=== PATIENT | female | born 1930 | race Hispanic/Latino ===

== ENCOUNTER 2017-02-16 10:00 | Emergency (ER) | payer OTHER, MEDICARE ==
[2017-02-16 10:01] VITALS: BMI 21.0
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
[2017-02-16 10:56] VITALS: PULSE 81; TEMP 98.6
[2017-02-16 12:57] VITALS: BP 148/86; RESP 16; O2SAT 98
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
--- NOTE | 2017-02-17 16:09 | CARD ---
APPROVED REPORT EKG Measurement Heart [id number] <Conclusion> Sinus rhythm with sinus arrhythmia with occasional premature ventricular complexes Minimal voltage criteria for LVH, may be normal variant Borderline ECG
== END 2017-02-16 13:18 | disposition home or self-care (01) ==
LOC: ED 10:00
DX: S20.212A Contusion of left front wall of thorax, initial encounter (principal); S80.02XA Contusion of left knee, initial encounter; V49.49XA Driver injured in collision with other motor vehicles in traffic accident, initial encounter; Y92.410 Unspecified street and highway as the place of occurrence of the external cause

== ENCOUNTER 2017-03-01 08:38 | Emergency (ER) | payer OTHER, MEDICARE ==
[2017-03-01 08:38] VITALS: BMI 21.0
[2017-03-01 09:37] VITALS: O2SAT 98
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
[2017-03-01 11:11] VITALS: RESP 18
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
[2017-03-01 11:41] VITALS: BP 100/84; PULSE 58
--- NOTE | 2017-03-01 12:02 | CARD ---
APPROVED REPORT EKG Measurement Heart [id number] <Conclusion> Normal sinus rhythm Incomplete right bundle branch block Borderline ECG
== END 2017-03-01 12:25 | disposition home or self-care (01) ==
LOC: ED 08:38
DX: S80.02XA Contusion of left knee, initial encounter (principal); V49.9XXA Car occupant (driver) (passenger) injured in unspecified traffic accident, initial encounter; Y92.410 Unspecified street and highway as the place of occurrence of the external cause; R07.89 Other chest pain

== ENCOUNTER 2017-03-04 19:42 | Inpatient (IN) | payer MEDICARE ==
[2017-03-04 20:34] VITALS: BMI 24.6
[2017-03-04 22:14] LABS: BASO # 0.07 K/mm3 (0.0-2.0); BASO % 0.8 % (0.0-3.0); EOS # 0.2 (0.0-0.7); EOS % 2.2 % (1.5-5.0); GRAN # 4.41 (1.4-6.5); GRAN % 48.4 % (50.0-68.0); HEMOGLOBIN 12.2 gm/dL (12.0-16.0); LYMPH # 3.5 (1.2-3.4); MEAN CELL VOLUME 90.3 fL (80.0-105.0); MEAN CORPUSCULAR HEMOGLOBIN 28.9 pg (25.0-35.0); MEAN PLATELET VOLUME 8.7 fl (7.0-11.0); MONO % 10.6 % (1.0-6.0); PLATELET COUNT 292 10^3/uL (120.0-450.0); RBC 4.22 10^6/uL (3.5-6.1); RED CELL DISTRIBUTION WIDTH 14.1 % (11.5-14.5); WHITE BLOOD COUNT 9.1 10^3/ul (4.5-11.0)
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
[2017-03-04 22:47] LABS: ALB/GLOB RATIO 1.3 (1.1-1.8); ALBUMIN 3.6 g/dL (3.0-4.8); ALT/SGPT 17 U/L (7-56); AST/SGOT 37 U/L (15-39); BLOOD UREA NITROGEN 17 mg/dL (7-21); GFR AFRICAN-AMERICAN > 60; GFR NON-AFRICAN AMERICAN 52
[2017-03-04 23:04] LABS: TROPONIN I < 0.01 ng/mL
[2017-03-05 02:45] LABS: URINE BILIRUBIN NEGATIVE (NEGATIVE); URINE BLOOD NEGATIVE (NEGATIVE); URINE GLUCOSE (UA) NEGATIVE (NEGATIVE); URINE LEUKOCYTE ESTERASE TRACE Leu/uL (NEGATIVE); URINE NITRATE NEGATIVE (NEGATIVE); URINE PROTEIN NEGATIVE mg/dL (<30 mg/dL); URINE UROBILINOGEN 0.2 E.U./dL (<1 E.U./dL)
[2017-03-05 02:53] LABS: URINE APPEARANCE CLEAR (CLEAR); URINE COLOR YELLOW (YELLOW)
[2017-03-05 02:56] LABS: URINE EPITHELIAL CELLS 0 - 2 /hpf (0-5); URINE RBC 0 - 2 /hpf (0-2); URINE WBC 0 - 2 /hpf (0-6)
--- NOTE | 2017-03-05 07:23 | CT ---
PROCEDURE: CT HEAD WITHOUT CONTRAST. HISTORY: AMS COMPARISON: None available. TECHNIQUE: Axial computed tomography images were obtained through the head/brain without intravenous contrast. Radiation dose: Total exam DLP = 725 mGy-cm. This CT exam was performed using one or more of the following dose reduction techniques: Automated exposure control, adjustment of the mA and/or kV according to patient size, and/or use of iterative reconstruction technique. FINDINGS: HEMORRHAGE: No intracranial hemorrhage. BRAIN: No mass effect or edema. No atrophy or chronic microvascular ischemic changes. VENTRICLES: Unremarkable. No hydrocephalus. CALVARIUM: Unremarkable. PARANASAL SINUSES: Unremarkable as visualized. No significant inflammatory changes. MASTOID AIR CELLS: Unremarkable as visualized. No inflammatory changes. OTHER FINDINGS: None. IMPRESSION: Normal CT of the Head.
--- NOTE | 2017-03-05 07:35 | RAD ---
HISTORY: chest pain COMPARISON: 03/01/2017 TECHNIQUE: Chest PA and lateral FINDINGS: LUNGS: No active pulmonary disease. PLEURA: No significant pleural effusion identified. No pneumothorax apparent. CARDIOVASCULAR: Normal. OSSEOUS STRUCTURES: No significant abnormalities. VISUALIZED UPPER ABDOMEN: Normal. OTHER FINDINGS: None. IMPRESSION: No active disease.
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
[2017-03-06 07:02] LABS: HEMOGLOBIN 12.9 gm/dL (12.0-16.0); MEAN CELL VOLUME 89.6 fL (80.0-105.0); MEAN CORPUSCULAR HEMOGLOBIN 29.1 pg (25.0-35.0); MEAN CORPUSCULAR HGB CONC 32.4 g/dl (31.0-37.0); MEAN PLATELET VOLUME 8.7 fl (7.0-11.0); RBC 4.44 10^6/uL (3.5-6.1); RED CELL DISTRIBUTION WIDTH 14.2 % (11.5-14.5); WHITE BLOOD COUNT 8.8 10^3/ul (4.5-11.0)
[2017-03-06 07:14] LABS: ALB/GLOB RATIO 1.2 (1.1-1.8); ALBUMIN 3.6 g/dL (3.0-4.8); ALT/SGPT 26 U/L (7-56); AST/SGOT 25 U/L (15-39); BLOOD UREA NITROGEN 19 mg/dL (7-21); CALCIUM 9.1 mg/dL (8.4-10.5); GFR AFRICAN-AMERICAN > 60; GFR NON-AFRICAN AMERICAN 52
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
[2017-03-07 07:05] LABS: MEAN CELL VOLUME 90.4 fL (80.0-105.0); MEAN CORPUSCULAR HEMOGLOBIN 28.7 pg (25.0-35.0); MEAN CORPUSCULAR HGB CONC 31.7 g/dl (31.0-37.0); MEAN PLATELET VOLUME 8.8 fl (7.0-11.0); RBC 4.18 10^6/uL (3.5-6.1); RED CELL DISTRIBUTION WIDTH 14.4 % (11.5-14.5); WHITE BLOOD COUNT 8.2 10^3/ul (4.5-11.0)
[2017-03-07 07:30] LABS: ALB/GLOB RATIO 1.3 (1.1-1.8); ALBUMIN 3.4 g/dL (3.0-4.8); ALT/SGPT 23 U/L (7-56); AST/SGOT 23 U/L (15-39); BLOOD UREA NITROGEN 22 mg/dL (7-21); CALCIUM 8.8 mg/dL (8.4-10.5); GFR AFRICAN-AMERICAN > 60; GFR NON-AFRICAN AMERICAN 59
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
[2017-03-08 07:34] LABS: HEMOGLOBIN 11.8 gm/dL (12.0-16.0); MEAN CELL VOLUME 90.1 fL (80.0-105.0); MEAN CORPUSCULAR HEMOGLOBIN 28.5 pg (25.0-35.0); MEAN CORPUSCULAR HGB CONC 31.6 g/dl (31.0-37.0); MEAN PLATELET VOLUME 8.7 fl (7.0-11.0); RBC 4.14 10^6/uL (3.5-6.1); RED CELL DISTRIBUTION WIDTH 14.5 % (11.5-14.5)
[2017-03-08 07:51] LABS: ALB/GLOB RATIO 1.2 (1.1-1.8); ALBUMIN 3.4 g/dL (3.0-4.8); ALT/SGPT 22 U/L (7-56); AST/SGOT 25 U/L (15-39); BLOOD UREA NITROGEN 18 mg/dL (7-21); CALCIUM 9.1 mg/dL (8.4-10.5); GFR AFRICAN-AMERICAN > 60; GFR NON-AFRICAN AMERICAN 59
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
[2017-03-09 07:10] LABS: HEMOGLOBIN 11.5 gm/dL (12.0-16.0); MEAN CELL VOLUME 90.5 fL (80.0-105.0); MEAN CORPUSCULAR HEMOGLOBIN 28.8 pg (25.0-35.0); MEAN CORPUSCULAR HGB CONC 31.9 g/dl (31.0-37.0); MEAN PLATELET VOLUME 8.8 fl (7.0-11.0); RBC 3.99 10^6/uL (3.5-6.1); RED CELL DISTRIBUTION WIDTH 14.2 % (11.5-14.5); WHITE BLOOD COUNT 8.8 10^3/ul (4.5-11.0)
[2017-03-09 07:14] LABS: ALB/GLOB RATIO 1.2 (1.1-1.8); ALBUMIN 3.3 g/dL (3.0-4.8); ALT/SGPT 23 U/L (7-56); AST/SGOT 28 U/L (15-39); BLOOD UREA NITROGEN 20 mg/dL (7-21); GFR AFRICAN-AMERICAN > 60; GFR NON-AFRICAN AMERICAN 59
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
[2017-03-10 07:16] LABS: HEMOGLOBIN 12.1 gm/dL (12.0-16.0); MEAN CELL VOLUME 90.7 fL (80.0-105.0); MEAN CORPUSCULAR HEMOGLOBIN 28.3 pg (25.0-35.0); MEAN CORPUSCULAR HGB CONC 31.2 g/dl (31.0-37.0); MEAN PLATELET VOLUME 8.8 fl (7.0-11.0); RBC 4.28 10^6/uL (3.5-6.1); RED CELL DISTRIBUTION WIDTH 14.3 % (11.5-14.5); WHITE BLOOD COUNT 8.1 10^3/ul (4.5-11.0)
[2017-03-10 07:20] LABS: ALB/GLOB RATIO 1.4 (1.1-1.8); ALBUMIN 3.6 g/dL (3.0-4.8); ALT/SGPT 30 U/L (7-56); AST/SGOT 27 U/L (15-39); BLOOD UREA NITROGEN 23 mg/dL (7-21); CALCIUM 9.2 mg/dL (8.4-10.5); GFR AFRICAN-AMERICAN > 60; GFR NON-AFRICAN AMERICAN 59
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
[2017-03-11 07:24] LABS: HEMOGLOBIN 12.4 gm/dL (12.0-16.0); MEAN CELL VOLUME 90.7 fL (80.0-105.0); MEAN CORPUSCULAR HEMOGLOBIN 28.9 pg (25.0-35.0); MEAN CORPUSCULAR HGB CONC 31.9 g/dl (31.0-37.0); MEAN PLATELET VOLUME 8.9 fl (7.0-11.0); RBC 4.29 10^6/uL (3.5-6.1); RED CELL DISTRIBUTION WIDTH 14.2 % (11.5-14.5); WHITE BLOOD COUNT 8.4 10^3/ul (4.5-11.0)
[2017-03-11 07:29] LABS: ALB/GLOB RATIO 1.2 (1.1-1.8); ALBUMIN 3.5 g/dL (3.0-4.8); ALT/SGPT 28 U/L (7-56); AST/SGOT 28 U/L (15-39); BLOOD UREA NITROGEN 26 mg/dL (7-21); CALCIUM 9.4 mg/dL (8.4-10.5); GFR AFRICAN-AMERICAN > 60; GFR NON-AFRICAN AMERICAN 59
[2017-03-11 07:36] VITALS: BP 166/69; PULSE 68; RESP 18; TEMP 97; O2SAT 98
--- NOTE | 2017-03-11 08:23 | CARD ---
APPROVED REPORT EKG Measurement Heart [id number] <Conclusion> Marked sinus bradycardia RSR' or QR pattern in V1 suggests right ventricular conduction delay LVH by voltage No change except slower rate.
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
== END 2017-03-11 16:25 | DRG 206 ==
LOC: ED 19:42 → ERH 03-05 02:17 → 5RNO 03-05 03:59
PROVIDERS: ADMIT Student in an Organized Health Care Education/Training Program; ATTEND Student in an Organized Health Care Education/Training Program
DX: M94.0 Chondrocostal junction syndrome [Tietze] (principal); F05 Delirium due to known physiological condition; F03.90 Unspecified dementia, unspecified severity, without behavioral disturbance, psychotic disturbance, mood disturbance, and anxiety; I10 Essential (primary) hypertension; F60.0 Paranoid personality disorder; F41.9 Anxiety disorder, unspecified; K57.90 Diverticulosis of intestine, part unspecified, without perforation or abscess without bleeding; Z88.6 Allergy status to analgesic agent; Z88.0 Allergy status to penicillin; Z88.2 Allergy status to sulfonamides

== ENCOUNTER 2017-03-11 16:30 | Inpatient (IN) | payer OTHER, MEDICARE ==
[2017-03-11 16:50] VITALS: BMI 23.3
[2017-03-11] MEDS ORDERED: Vitamins A & D Oint UD Foilpak TOP PRN (19:41)
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
[2017-03-12 08:18] LABS: BASO # 0.11 K/mm3 (0.0-2.0); BASO % 1.5 % (0.0-3.0); EOS # 0.3 (0.0-0.7); EOS % 3.3 % (1.5-5.0); GRAN # 3.53 (1.4-6.5); GRAN % 46.6 % (50.0-68.0); LYMPH # 2.9 (1.2-3.4); LYMPH % 38.4 % (22.0-35.0); MEAN CELL VOLUME 91.1 fL (80.0-105.0); MEAN CORPUSCULAR HEMOGLOBIN 28.8 pg (25.0-35.0); MEAN CORPUSCULAR HGB CONC 31.6 g/dl (31.0-37.0); MEAN PLATELET VOLUME 8.7 fl (7.0-11.0); MONO # 0.8 (0.1-0.6); MONO % 10.2 % (1.0-6.0); PLATELET COUNT 253 10^3/uL (120.0-450.0); RBC 4.51 10^6/uL (3.5-6.1); RED CELL DISTRIBUTION WIDTH 14.2 % (11.5-14.5); WHITE BLOOD COUNT 7.6 10^3/ul (4.5-11.0)
[2017-03-12 08:33] LABS: ALB/GLOB RATIO 1.3 (1.1-1.8); ALBUMIN 3.7 g/dL (3.0-4.8); ALT/SGPT 28 U/L (7-56); AST/SGOT 28 U/L (15-39); BLOOD UREA NITROGEN 24 mg/dL (7-21); CALCIUM 9.5 mg/dL (8.4-10.5); GFR AFRICAN-AMERICAN > 60; GFR NON-AFRICAN AMERICAN 59
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
--- NOTE | 2017-03-19 01:09 | PN ---
DATE: 03/18/2017 SUBJECTIVE: The patient is an 87-year-old female, currently in ICU, room 316, bed 1. The patient was seen on 03/17/2017, in the morning. There have been no acute events overnight. PHYSICAL EXAMINATION: VITAL SIGNS: Temperature 97.7, pulse rate is 78, blood pressure is 132/63, respiratory rate of 18 with a 96% O2 saturation of room air. HEENT: Unremarkable. NECK: Supple with full range of motion. LUNGS: Clear bilaterally. HEART: Regular rate and rhythm. ABDOMEN: Benign. NEUROLOGICALLY: The patient is intact. There are no focal motor deficits. She does have periods of confusion. LABORATORY DATA: Lab values, they were not done. CURRENT PROBLEMS: Altered mental status. PLAN: The patient will continue the PT. Rolan James MD
--- NOTE | 2017-03-19 08:53 | PN ---
The patient is in room #316, bed #1. There have been no acute events overnight. PHYSICAL EXAMINATION VITAL SIGNS: Temperature of 97.5, blood pressure 139/85, respiration rate 20 with an O2 saturation of 97% on room air. HEENT: PERRLA. EOMI. NECK: Supple and no bruits or adenopathy. LUNGS: Clear bilaterally. HEART: Regular rate and rhythm. No murmurs, rubs or gallops. ABDOMEN: Soft. It is nontender. NEUROLOGIC: There are no focal motor deficits. CURRENT DIAGNOSIS: Altered mental status and delirium. Continue current care. Rolan James MD
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
[2017-03-19 16:00] VITALS: BP 120/69; PULSE 77; RESP 18; TEMP 97.9; O2SAT 98
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
== END 2017-03-19 20:00 | disposition home or self-care (01) | DRG 884 ==
LOC: TRCU 16:30
PROVIDERS: ADMIT Internal Medicine; ATTEND Internal Medicine
PROC: F07Z9FZ Gait Training/Functional Ambulation Treatment using Assistive, Adaptive, Supportive or Protective Equipment (ICD-10-PCS; principal; 2017-03-12)
PROC: F07M6ZZ Therapeutic Exercise Treatment of Musculoskeletal System - Whole Body (ICD-10-PCS; 2017-03-12)
PROC: F08Z4ZZ Home Management Treatment (ICD-10-PCS; 2017-03-14)
DX: F03.90 Unspecified dementia, unspecified severity, without behavioral disturbance, psychotic disturbance, mood disturbance, and anxiety (principal); I10 Essential (primary) hypertension; M94.0 Chondrocostal junction syndrome [Tietze]; F41.9 Anxiety disorder, unspecified; F60.0 Paranoid personality disorder; Z87.442 Personal history of urinary calculi; Z86.010 Personal history of colon polyps; Z87.891 Personal history of nicotine dependence; Z90.49 Acquired absence of other specified parts of digestive tract; R07.89 Other chest pain; Z87.19 Personal history of other diseases of the digestive system; F32.89 Other specified depressive episodes; Z88.6 Allergy status to analgesic agent; Z88.0 Allergy status to penicillin; Z88.2 Allergy status to sulfonamides; Z88.8 Allergy status to other drugs, medicaments and biological substances

== ENCOUNTER 2017-05-08 15:06 | Emergency (ER) | payer MEDICARE ==
[2017-05-08 15:37] VITALS: TEMP 97.7; BMI 20.6
--- NOTE | 2017-05-08 15:49 | ED PDOC ---
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 Patient stated while walking in her kitchen she fell down backwards , hitting the back of her head. Patient stated she felt like "someone pulled me backwards" prior to fall. She denies mechanical fall. Denies chest pain, sob, dizziness, recent travel, leg swelling, or abnormal gait. Patient lives alone (Constance Guillen) Past Medical History - Provider Review Nursing Documentation Reviewed: Yes - Infectious Disease Hx of Infectious Diseases: None - Tetanus Immunization Tetanus Immunization: Unknown - Cardiac Hx Cardiac Disorders: Yes - Pulmonary Hx Respiratory Disorders: No - Neurological Hx Neurological Disorder: No - HEENT Hx HEENT Disorder: Yes ([place], wears eyeglasses) Hx Cataracts: Yes - Renal Hx Renal Disorder: Yes (KIDNEY STONES) - Endocrine/Metabolic Hx Endocrine Disorders: No - Hematological/Oncological Hx Blood Disorders: No - Integumentary Hx Dermatological Disorder: No - Musculoskeletal/Rheumatological Hx Musculoskeletal Disorders: Yes Hx Falls: Yes - Gastrointestinal Hx Gastrointestinal Disorders: Yes (takes stool softeners for constapation) - Genitourinary/Gynecological Hx Genitourinary Disorders: No Hx Reproductive Disorders: No - Psychiatric Hx Psychophysiologic Disorder: Yes Hx Anxiety: Yes Hx Depression: Yes Hx Emotional Abuse: No Hx Physical Abuse: No Hx Substance Use: No Other/Comment: Early onset dementia - Surgical History Hx Appendectomy: Yes Hx Cholecystectomy: Yes Other/Comment: colon polyps - Anesthesia Hx Anesthesia: No - Suicidal Assessment Feels Threatened In Home Enviroment: No Family/Social History - Physician Review Nursing Documentation Reviewed: Yes Family/Social History: Other (non-contributory) Smoking Status: Former Smoker Hx Alcohol Use: No Hx Substance Use: No Hx Substance Use Treatment: No Allergies/Home Meds Allergies/Adverse Reactions: Allergies aspirin Allergy (Verified 03/18/17 20:02) RASH iodine Allergy (Verified 03/18/17 20:02) RASH Penicillins Allergy (Verified 03/18/17 20:02) RASH Sulfa (Sulfonamide Antibiotics) Allergy (Verified 03/18/17 20:02) RASH Review of Systems - Review of Systems Constitutional: Normal. absent: Fatigue, Weight Change, Fevers Eyes: Normal ENT: Normal Respiratory: Normal. absent: SOB, Cough Cardiovascular: Syncope. absent: Chest Pain, Palpitations, Edema, Calf Pain, BUENROSTRO Gastrointestinal: Normal. absent: Abdominal Pain, Nausea, Vomiting Genitourinary Female: Normal. absent: Dysuria, Frequency Musculoskeletal: Normal Skin: Normal. absent: Rash Neurological: Headache. absent: Dizziness, Focal Weakness, Gait Changes, Speech Changes, Facial Droop, Disequilibrium Endocrine: Normal Hemo/Lymphatic: Normal Psychiatric: Normal Physical Exam Temperature: Afebrile Blood Pressure: Normal Pulse: Regular Respiratory Rate: Normal Appearance: Positive for: Well-Appearing, Non-Toxic, Comfortable Pain Distress: None Mental Status: Positive for: Alert and Oriented X 3 - Systems Exam Head: Present: Atraumatic, Normocephalic, Other (no raccoon sign. no wisdom sign) Pupils: Present: PERRL, Other (no hyphema) Extroacular Muscles: Present: EOMI. No: Entrapment Conjunctiva: Present: Normal Ears: Present: Normal, NORMAL TM, Normal Canal, Other (no hemotympanum). No: Erythema, TM Bulging, Fluid, TM Perf Mouth: Present: Moist Mucous Membranes Pharnyx: Present: Normal. No: ERYTHEMA, EXUDATE, TONSILS ENLARGED Nose (External): Present: Atraumatic Nose (Internal): Present: Normal Inspection Neck: Present: Normal Range of Motion, MIDLINE TENDERNESS (mild), Paraspinal Tenderness, Trachea Midline. No: Meningeal Signs, JVD, Lymphadenopathy, Bruit Respiratory/Chest: Present: Clear to Auscultation, Good Air Exchange. No: Respiratory Distress, Accessory Muscle Use Cardiovascular: Present: Regular Rate and Rhythm, Normal S1, S2. No: Murmurs Abdomen: Present: Normal Bowel Sounds. No: Tenderness, Distention, Peritoneal Signs Back: Present: Normal Inspection. No: CVA Tenderness Upper Extremity: Present: Normal Inspection, Normal ROM, NORMAL PULSES, Neurovascularly Intact, Capillary Refill < 2s. No: Cyanosis, Edema Lower Extremity: Present: Normal Inspection, NORMAL PULSES, Normal ROM, Neurovascularly Intact, Capillary Refill < 2 s. No: Edema Neurological: Present: GCS=15, CN II-XII Intact, Speech Normal Skin: Present: Warm, Dry, Normal Color. No: Rashes Psychiatric: Present: Alert, Oriented x 3, Normal Insight, Normal Concentration Vital Signs Temp Pulse Resp BP Pulse Ox 05/08/17 18:20 72 16 142/60 100 05/08/17 15:26 97.7 F 71 18 147/73 98 Medical Decision Making Re-evaluation Time: 18:02 Reassessment Condition: Re-examined, Unchanged ED Course and Treatment: I was available for consultation during PA evaluation. The chart was reviewed by me, and I agree with disposition. The documented history was done by the physician denier control operator. The documented physical exam was done by the physician denier control operator. The documented procedures were done by the physician denier control operator. (Guillermo Dockery) 05/08/17 18:01 Patient is refusing labs test, and admission for near syncope. Patient is alert and oriented x 3. Patient has a normal speech, and normal gait. Patient wants to sign AMA 05/08/17 18:03 Leaving Against Medical Advice (AMA): This patient is choosing to leave against medical advice. The EP has personally explained to the pt that choosing to do so may result in permanent bodily harm or . The EP discussed at great length that without further evaluation and monitoring there may be unforeseen circumstances and/or deterioration causing permanent bodily harm or as a result of their choice. The pt verbalized these risks back to the physician in laymans terms. The pt is alert, oriented, and shows the mental capacity to make clear decisions regarding the pts health care at this time. The pt continues to wish to leave against medical advice. In light of the pts decision to leave AMA, follow-up has been recommended the pt is aware of the importance of following up as instructed. The pt has been advised that they should return to the ED immediately if they change their mind at any time, or if thier condition begins to change or worsen in any way. 05/10/17 19:15 (Constance Guillen) - RAD Interpretation Narrative RAD Interpretations (Text): 05/08/17 17:19 Accession No. : [id number] Patient Name / ID : REBEKAH REDDY / [id number] Exam Date : 05/08/2017 16:20:17 ( Approved ) Study Comment : Sex / Age : F / 87Y Creator : Nena Carias MD Dictator : A&P Mechanic : Water Resource Project Manager : Nena Carias MD Approver2 : Report Date : 05/08/2017 16:54:25 My Comment : PROCEDURE: CT HEAD WITHOUT CONTRAST. HISTORY: trauma COMPARISON: Noncontrast head CT performed 03/04/17 TECHNIQUE: Axial computed tomography images were obtained through the head/brain without intravenous contrast. Radiation dose: Total exam DLP = 725.84 mGy-cm. This CT exam was performed using one or more of the following dose reduction techniques: Automated exposure control, adjustment of the mA and/or kV according to patient size, and/or use of iterative reconstruction technique. FINDINGS: HEMORRHAGE: No intracranial hemorrhage. BRAIN: Diffuse atrophy with prominence of the ventricles and sulci noted. No mass effect or edema. Scattered periventricular and subcortical white matter hypodensities, which are nonspecific, but often seen with chronic microvascular ischemic disease. Please note that MRI with diffusion imaging is more sensitive in the detection of acute ischemic event. VENTRICLES: No hydrocephalus. CALVARIUM: Unremarkable. PARANASAL SINUSES: Unremarkable as visualized. No significant inflammatory changes. MASTOID AIR CELLS: Unremarkable as visualized. No inflammatory changes. OTHER FINDINGS: Partial opacification within both external auditory canals, likely cerumen. IMPRESSION: Generalized atrophy. Nonspecific white matter changes. 05/08/17 17:20 Accession No. : [id number] Patient Name / ID : REBEKAH REDDY / [id number] Exam Date : 05/08/2017 16:23:51 ( Approved ) Study Comment : Sex / Age : F / 87Y Creator : IVELISSE PERKINS MD Dictator : IVELISSE PERKINS MD A&P Mechanic : Water Resource Project Manager : IVELISSE PERKINS MD Approver2 : Report Date : 05/08/2017 17:10:21 My Comment : PROCEDURE: CT Cervical Spine without contrast HISTORY: Trauma COMPARISON: None available. TECHNIQUE: Axial computed tomography images were obtained of the cervical spine without the use of intravenous contrast. Coronal and sagittal reformatted images were created and reviewed. Radiation dose: Total exam DLP = 188.84 MGy-cm. This CT exam was performed using one or more of the following dose reduction techniques: Automated exposure control, adjustment of the mA and/or kV according to patient size, and/or use of iterative reconstruction technique. FINDINGS: VERTEBRAE: There is normal alignment of the cervical vertebral bodies. There is normal cervical lordosis. Vertebral height is normal. There is diffuse bone demineralization. There is no acute fracture or spondylolisthesis. The craniocervical junction is normal. 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 DISCS/SPINAL CANAL/NEURAL FORAMINA: There is multilevel degenerative disc disease with anterior osteophytes, reduced disc heights and advanced multilevel facet arthropathy, worse at C5-6 with mild right neural foraminal stenosis. No spinal canal stenosis. PARASPINAL SOFT TISSUES: No prevertebral soft tissue. OTHER FINDINGS: There is biapical pleural parenchymal scarring. No apical pneumothorax. IMPRESSION: No acute fracture or traumatic spondylolisthesis. (Constance Guillen) Radiology Orders: 05/08/17 15:44 HEAD W/O CONTRAST [CT] Stat 05/08/17 15:46 CERVICAL SPINE W/O CONTRAST [CT] Stat 05/08/17 15:47 CHEST PORTABLE [RAD] Stat Disposition/Present on Arrival - Present on Arrival Any Indicators Present on Arrival: No History of DVT/PE: No History of Uncontrolled Diabetes: No Urinary Catheter: No History of Decub. Ulcer: No History Surgical Site Infection Following: None - Disposition Have Diagnosis and Disposition been Completed?: Yes Disposition Time: 18:08 - Disposition Diagnosis: Fall, Near syncope Disposition: AGAINST MEDICAL ADVICE Condition: UNKNOWN Referrals: Erika ARANA,Barney Martinez MD [Primary Care Provider] - Follow up with primary Forms: [employer] (Monegasque)
--- NOTE | 2017-05-08 17:11 | CT ---
PROCEDURE: CT Cervical Spine without contrast HISTORY: Trauma COMPARISON: None available. TECHNIQUE: Axial computed tomography images were obtained of the cervical spine without the use of intravenous contrast. Coronal and sagittal reformatted images were created and reviewed. Radiation dose: Total exam DLP = 188.84 MGy-cm. This CT exam was performed using one or more of the following dose reduction techniques: Automated exposure control, adjustment of the mA and/or kV according to patient size, and/or use of iterative reconstruction technique. FINDINGS: VERTEBRAE: There is normal alignment of the cervical vertebral bodies. There is normal cervical lordosis. Vertebral height is normal. There is diffuse bone demineralization. There is no acute fracture or spondylolisthesis. The craniocervical junction is normal. 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 DISCS/SPINAL CANAL/NEURAL FORAMINA: There is multilevel degenerative disc disease with anterior osteophytes, reduced disc heights and advanced multilevel facet arthropathy, worse at C5-6 with mild right neural foraminal stenosis. No spinal canal stenosis. PARASPINAL SOFT TISSUES: No prevertebral soft tissue. OTHER FINDINGS: There is biapical pleural parenchymal scarring. No apical pneumothorax. IMPRESSION: No acute fracture or traumatic spondylolisthesis.
--- NOTE | 2017-05-08 17:46 | RAD ---
HISTORY: syncope COMPARISON: 03/04/2017 FINDINGS: LUNGS: The lungs are hyperinflated and there is peribronchial thickening with chronic changes in both lungs. There is a stable calcified nodule in the right lateral upper lobe. No focal consolidation. PLEURA: No significant pleural effusion identified, no pneumothorax apparent. CARDIOVASCULAR: Normal. OSSEOUS STRUCTURES: There is mild dextroscoliosis in the thoracolumbar spine. VISUALIZED UPPER ABDOMEN: Normal. OTHER FINDINGS: Surgical clips in the right upper quadrant are related to prior cholecystectomy. IMPRESSION: No active pulmonary disease. COPD.
--- NOTE | 2017-05-08 18:10 | CT ---
PROCEDURE: CT HEAD WITHOUT CONTRAST. HISTORY: trauma COMPARISON: Noncontrast head CT performed 03/04/17 TECHNIQUE: Axial computed tomography images were obtained through the head/brain without intravenous contrast. Radiation dose: Total exam DLP = 725.84 mGy-cm. This CT exam was performed using one or more of the following dose reduction techniques: Automated exposure control, adjustment of the mA and/or kV according to patient size, and/or use of iterative reconstruction technique. FINDINGS: HEMORRHAGE: No intracranial hemorrhage. BRAIN: Diffuse atrophy with prominence of the ventricles and sulci noted. No mass effect or edema. Scattered periventricular and subcortical white matter hypodensities, which are nonspecific, but often seen with chronic microvascular ischemic disease. Please note that MRI with diffusion imaging is more sensitive in the detection of acute ischemic event. VENTRICLES: No hydrocephalus. CALVARIUM: Unremarkable. PARANASAL SINUSES: Unremarkable as visualized. No significant inflammatory changes. MASTOID AIR CELLS: Unremarkable as visualized. No inflammatory changes. OTHER FINDINGS: Partial opacification within both external auditory canals, likely cerumen. IMPRESSION: Generalized atrophy. Nonspecific white matter changes.
[2017-05-08 23:28] VITALS: BP 142/60; PULSE 72; RESP 16; O2SAT 100
== END 2017-05-08 18:20 | disposition left against medical advice (07) ==
LOC: ED 15:06
DX: R55 Syncope and collapse (principal)

== ENCOUNTER 2017-06-24 10:38 | Emergency (ER) | payer MEDICARE ==
[2017-06-24 10:38] VITALS: BMI 23.3
--- NOTE | 2017-06-24 11:35 | ED PDOC ---
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 The patient states that "my doctor told me my colon could rupture someday". She denies nausea or vomiting. Denies fevers or chills. Denies chest pain or shortness of breath. She states that she feels she has to urinate although she is unable to do so and continually requests to go to bathroom. States no difficulty moving her bowels, reports last bowel movement this am was normal, nonbloody. She denies lightheadedness or dizziness. Denies back pain. Time/Duration: < week (x 3 days ) Symptom Onset: Gradual Symptom Course: Unchanged Quality: Stabbing Activities at Onset: Rest, Light Context: Home Past Medical History - Provider Review Nursing Documentation Reviewed: Yes - Infectious Disease Hx of Infectious Diseases: None - Tetanus Immunization Tetanus Immunization: Unknown - Cardiac Hx Cardiac Disorders: Yes - Pulmonary Hx Respiratory Disorders: No - Neurological Hx Neurological Disorder: No - HEENT Hx HEENT Disorder: Yes ([place], wears eyeglasses) Hx Cataracts: Yes - Renal Hx Renal Disorder: Yes (KIDNEY STONES) - Endocrine/Metabolic Hx Endocrine Disorders: No - Hematological/Oncological Hx Blood Disorders: No - Integumentary Hx Dermatological Disorder: No - Musculoskeletal/Rheumatological Hx Musculoskeletal Disorders: Yes (rheumatoid arthritis) - Gastrointestinal Hx Gastrointestinal Disorders: Yes (takes stool softeners for constapation) - Genitourinary/Gynecological Hx Genitourinary Disorders: Yes (urgenency/hesitancy) - Psychiatric Hx Psychophysiologic Disorder: Yes Hx Anxiety: Yes Hx Depression: Yes Hx Emotional Abuse: No Hx Physical Abuse: No Hx Substance Use: No Other/Comment: Early onset dementia - Surgical History Hx Appendectomy: Yes Hx Cholecystectomy: Yes Other/Comment: colon polyps - Anesthesia Hx Anesthesia: No - Suicidal Assessment Feels Threatened In Home Enviroment: No Family/Social History - Physician Review Nursing Documentation Reviewed: Yes Family/Social History: No Known Family HX Smoking Status: Former Smoker Hx Alcohol Use: No Hx Substance Use: No Hx Substance Use Treatment: No Allergies/Home Meds Allergies/Adverse Reactions: Allergies aspirin Allergy (Verified 06/24/17 10:53) RASH iodine Allergy (Verified 06/24/17 10:53) RASH Penicillins Allergy (Verified 06/24/17 10:53) RASH Sulfa (Sulfonamide Antibiotics) Allergy (Verified 06/24/17 10:53) RASH Home Medications: Home Meds Medication Instructions Recorded Confirmed Unobtainable 06/24/17 06/24/17 Review of Systems - Review of Systems Systems not reviewed;Unavailable: Dementia Constitutional: absent: Fevers Eyes: absent: Vision Changes ENT: absent: Hearing Changes Respiratory: absent: SOB Cardiovascular: absent: Chest Pain, Palpitations Gastrointestinal: Abdominal Pain. absent: Stool Changes, Diarrhea, Nausea, Vomiting, Appetite Changes, Hematochezia, Hematemesis Genitourinary Female: Dysuria, Urine Output Changes. absent: Frequency, Hematuria, Vaginal Bleeding Musculoskeletal: absent: Back Pain Skin: absent: Rash Neurological: absent: Headache, Dizziness, Focal Weakness Hemo/Lymphatic: absent: Easy Bleeding Physical Exam - Physical Exam Narrative Physical Exam (Text): 06/24/17 11:34 Head: Atraumatic. Normocephalic. Eyes: PERRL. EOMI. Conjunctivae are not pale. ENT: Mucous membranes are moist and intact. Oropharynx is clear and symmetric. Neck: Supple. Full ROM. No JVD. No lymphadenopathy. Cardiovascular: Regular rate. Regular rhythm. No murmurs, rubs, or gallops. Distal pulses are 2+ and symmetric. Pulmonary/Chest: No evidence of respiratory distress. Clear to auscultation bilaterally. No wheezing, rales or rhonchi. Abdominal: Distended. Soft. Midsuprapubic tenderness. No rebound, guarding, or rigidity. No organomegaly. Good bowel sounds. Genitourinary: no external lesions or bleeding noted Rectal: no melena or gross bleeding Back: No CVA tenderness. Extremities: No edema. No cyanosis. No clubbing. Full range of motion in all extremities. No calf tenderness. Skin: Skin is warm and dry. No petechiae. No purpura. Neurological: Alert, awake. Motor and sensory intact. No focal weakness. Steady gait. Psychiatric: Anxious. Intermittently agitated. Exhibits some paranoid behavior. Vital Signs Reviewed: Yes Vital Signs Temp Pulse Resp BP Pulse Ox 06/24/17 14:21 97.8 F 75 20 141/71 99 06/24/17 12:51 97.7 F 66 16 159/71 H 99 06/24/17 10:50 97.9 F 71 18 157/84 H 100 Temperature: Afebrile Blood Pressure: Hypertensive Pulse: Regular Respiratory Rate: Normal Appearance: Positive for: Well-Appearing, Non-Toxic Pain Distress: Mild Mental Status: Positive for: Alert and Oriented X 3 Medical Decision Making ED Course and Treatment: 06/24/17 11:35 Impression: A 87 year old female with abdominal pain and urinary output changes. Differential Diagnosis included but are not limited to: diverituclitis, colitis , urinary retention Plan: -- Abd & Pelvis -- EKG -- Chest X-ray -- Labs -- Urinary catheter -- Urinalysis -- Reassess and disposition Progress Notes: Patient on examination is noted to be afebrile, cv stable, With abdominal distension noted and complaints of difficulty urinating. She is uncomfortable on arrival and requests to go to bathroom to urinate multiple times, however patient is unable to do so saying "nothing comes out". Thurston catheter placed and 500-700 ml of clear yellow urine obtained with relief of discomfort. PROCEDURE: CT Abdomen and Pelvis without intravenous contrast Sales Engineering Manager : Dheeraj Arellano MD Report Date : 06/24/2017 13:10:44 HISTORY:patient with abdominal distension, flank pain COMPARISON:None. FINDINGS: LOWER THORAX:Unremarkable. LIVER:Unremarkable. No gross lesion or ductal dilatation. GALLBLADDER AND BILE DUCTS:Multiple clips in the gallbladder fossa PANCREAS:Unremarkable. No gross lesion or ductal dilatation. SPLEEN:Unremarkable. ADRENALS:Unremarkable. No mass. KIDNEYS AND URETERS:Unremarkable. No hydronephrosis. No solid mass. VASCULATURE:Unremarkable. No aortic aneurysm. BOWEL:Unremarkable. No obstruction. No gross mural thickening. Evaluation of the bowel is limited by lack of oral and IV contrast APPENDIX:Unremarkable. Normal appendix. PERITONEUM:Unremarkable. No free fluid. No free air. LYMPH NODES:Unremarkable. No enlarged lymph nodes. BLADDER:Unremarkable. REPRODUCTIVE:Unremarkable. BONES:No acute fracture. OTHER FINDINGS:None. IMPRESSION:No acute intra-abdominal findings No fever noted. Urinalysis unremarkable. Patient on re-exam has become more agitated stating she wishes to go home immediately. I discussed her exam and physical exam findings with her son Rex, who states she has new homemaker on Sundays. She typically takes xanax, does of xanax ordered. I discussed case with her PMD Dr. Chandler James. She insists that catheter be removed, I have advised her of risks of return of urinary retention and need for workup of etiology of retention. Patient's friend presented to emergency departmant and patient is calm and cooperative. I have informed family of disposition plan, friend will accompany her home. I have discussed with patient ct results and risk of return of urinary retention without catheter. She states she does not want catheter in and understands these risks. I have discussed with Dr. Chandler James, who is aware and will follow-up with patient. - Lab Interpretations Lab Results: 06/24/17 12:15 06/24/17 12:15 Lab Results 06/24/17 13:31: Urine Color Yellow, Urine Appearance Clear, Urine pH 7.0, Ur Specific [place] <= 1.005, Urine Protein Negative, Urine Glucose (UA) Negative, Urine Ketones Negative, Urine Blood Negative, Urine Nitrate Negative, Urine Bilirubin Negative, Urine Urobilinogen 0.2, Ur Leukocyte Esterase Negative 06/24/17 12:15: Sodium 142, Potassium 5.1 H, Chloride 108 H, Carbon Dioxide 25, Anion Gap 14, BUN 17, Creatinine 1.0, Est GFR ( Amer) > 60, Est GFR (Non- Af Amer) 52, Random Glucose 95, Calcium 9.2, Total Bilirubin 0.5, AST 28, ALT 22 , Alkaline Phosphatase 65, Lactate Dehydrogenase 548, Total Creatine Kinase 48, Troponin I < 0.01, Total Protein 6.6, Albumin 3.9, Globulin 2.7, Albumin/ Globulin Ratio 1.4, Amylase 112, Lipase 131 06/24/17 12:15: PT 11.2, INR 1.02, APTT 36.5 06/24/17 12:15: WBC 7.8, RBC 4.05, Hgb 11.4 L, Hct 35.8 L, MCV 88.4, MCH 28.1, MCHC 31.8, RDW 14.3, Plt Count 323, MPV 9.2, Gran % 60.5, Lymph % (Auto) 26.9, [place] % (Auto) 10.0 H, Eos % (Auto) 1.3 L, Baso % (Auto) 1.3, Gran # 4.74, Lymph # 2.1, [place] # 0.8 H, Eos # 0.1, Baso # 0.10 - RAD Interpretation Radiology Orders: 06/24/17 11:25 CHEST PORTABLE [RAD] Stat 06/24/17 11:26 ABD & PELVIS W/O PO OR IV CONT [CT] Stat - EKG Interpretation EKG Interpretation (Text): EKG at 10:58 normal sinus rhythm, no acute st elevations Interpreted by ED Physician: Yes Type: 12 lead EKG - Medication Orders Current Medication Orders: Discontinued Medications Alprazolam (Xanax) 0.5 mg PO STAT STA Stop: 06/24/17 14:28 Last Admin: 06/24/17 14:35 Dose: 0.5 mg - Scribe Statement The provider has reviewed the documentation as recorded by the Dariibab Kessler Provider Scribe Attestation: All medical record entries made by the Dariibe were at my direction and personally dictated by me. I have reviewed the chart and agree that the record accurately reflects my personal performance of the history, physical exam, medical decision making, and the department course for this patient. I have also personally directed, reviewed, and agree with the discharge instructions and disposition. Disposition/Present on Arrival - Present on Arrival Any Indicators Present on Arrival: No History of DVT/PE: No History of Uncontrolled Diabetes: No Urinary Catheter: No History of Decub. Ulcer: No History Surgical Site Infection Following: None - Disposition Have Diagnosis and Disposition been Completed?: Yes Diagnosis: Abdominal pain, Urinary retention Disposition: AGAINST MEDICAL ADVICE Disposition Time: 14:40 Patient Plan: Discharge Patient Problems: Current Active Problems Problem Status Onset Abdominal pain Acute Agitation Acute Urinary retention Acute Condition: GOOD Discharge Instructions (ExitCare): Acute Urinary Retention in Women (ED) Additional Instructions: Follow-up with Dr. James in 1-2 days. For any difficulty urinating, any chest pain, or shortness of breath, any vomiting, any fevers, any dark or bloody stools, get rechecked. Follow-up with urologist as discussed. Referrals: Erika ARANA,Barney Martinez MD [Primary Care Provider] - Follow up with primary Guicho Aldana MD [Staff Provider] - Follow up with primary Forms: [employer] (Czech)
[2017-06-24 12:33] LABS: ALB/GLOB RATIO 1.4 (1.1-1.8); ALKALINE PHOSPHATASE 65 U/L (38-126); ALT/SGPT 22 U/L (7-56); AMYLASE 112 U/L (35-125); AST/SGOT 28 U/L (14-36); BILIRUBIN,TOTAL 0.5 mg/dL (0.2-1.3); BLOOD UREA NITROGEN 17 mg/dL (7-21); CALCIUM 9.2 mg/dL (8.4-10.5); CARBON DIOXIDE 25 mmol/L (21-33); CHLORIDE 108 mmol/L (98-107); GFR AFRICAN-AMERICAN > 60; GLUCOSE,RANDOM 95 mg/dL (70-110); LIPASE 131 U/L (23-300); SODIUM 142 mmol/L (132-148); TOTAL PROTEIN 6.6 g/dL (5.8-8.3)
[2017-06-24 12:34] LABS: POTASSIUM 5.1 mmol/L (3.6-5.0)
[2017-06-24 12:43] LABS: BASO # 0.1 K/mm3 (0.0-2.0); BASO % 1.3 % (0.0-3.0); EOS # 0.1 (0.0-0.7); EOS % 1.3 % (1.5-5.0); GRAN # 4.74 (1.4-6.5); GRAN % 60.5 % (50.0-68.0); HEMATOCRIT 35.8 % (36.0-48.0); LYMPH # 2.1 (1.2-3.4); LYMPH % 26.9 % (22.0-35.0); MEAN CELL VOLUME 88.4 fl (80.0-105.0); MEAN CORPUSCULAR HEMOGLOBIN 28.1 pg (25.0-35.0); MEAN CORPUSCULAR HGB CONC 31.8 g/dl (31.0-37.0); MEAN PLATELET VOLUME 9.2 fl (7.0-11.0); MONO # 0.8 (0.1-0.6); RED CELL DISTRIBUTION WIDTH 14.3 % (11.5-14.5); WHITE BLOOD COUNT 7.8 10^3/ul (4.5-11.0)
[2017-06-24 12:47] LABS: TROPONIN I < 0.01 ng/mL
[2017-06-24 13:07] LABS: INR 1.02 (0.93-1.08); PARTIAL THROMBOPLASTIN TIME 36.5 Seconds (25.1-36.5)
--- NOTE | 2017-06-24 13:12 | CT ---
PROCEDURE: CT Abdomen and Pelvis without intravenous contrast HISTORY: patient with abdominal distension, flank pain COMPARISON: None. TECHNIQUE: Without contrast.. Contrast Dose: Radiation dose: Total exam DLP = 421 mGy-cm. This CT exam was performed using one or more of the following dose reduction techniques: Automated exposure control, adjustment of the mA and/or kV according to patient size, and/or use of iterative reconstruction technique. FINDINGS: LOWER THORAX: Unremarkable. LIVER: Unremarkable. No gross lesion or ductal dilatation. GALLBLADDER AND BILE DUCTS: Multiple clips in the gallbladder fossa PANCREAS: Unremarkable. No gross lesion or ductal dilatation. SPLEEN: Unremarkable. ADRENALS: Unremarkable. No mass. KIDNEYS AND URETERS: Unremarkable. No hydronephrosis. No solid mass. VASCULATURE: Unremarkable. No aortic aneurysm. BOWEL: Unremarkable. No obstruction. No gross mural thickening. Evaluation of the bowel is limited by lack of oral and IV contrast APPENDIX: Unremarkable. Normal appendix. PERITONEUM: Unremarkable. No free fluid. No free air. LYMPH NODES: Unremarkable. No enlarged lymph nodes. BLADDER: Unremarkable. REPRODUCTIVE: Unremarkable. BONES: No acute fracture. OTHER FINDINGS: None. IMPRESSION: No acute intra-abdominal findings
[2017-06-24 13:37] LABS: URINE BILIRUBIN NEGATIVE (NEGATIVE); URINE BLOOD NEGATIVE (NEGATIVE); URINE GLUCOSE (UA) NEGATIVE (NEGATIVE); URINE KETONE NEGATIVE (NEGATIVE); URINE LEUKOCYTE ESTERASE NEGATIVE Leu/uL (NEGATIVE); URINE PROTEIN NEGATIVE mg/dL (<30 mg/dL); URINE UROBILINOGEN 0.2 E.U./dL (<1 E.U./dL)
[2017-06-24 13:47] LABS: URINE APPEARANCE CLEAR (CLEAR); URINE COLOR YELLOW (YELLOW)
--- NOTE | 2017-06-24 13:55 | RAD ---
HISTORY: upper abdominal pain COMPARISON: 05/08/2017 FINDINGS: LUNGS: No active pulmonary disease. PLEURA: No significant pleural effusion identified, no pneumothorax apparent. CARDIOVASCULAR: Normal. OSSEOUS STRUCTURES: No significant abnormalities. VISUALIZED UPPER ABDOMEN: Normal. OTHER FINDINGS: None. IMPRESSION: No active disease.
[2017-06-24 14:22] VITALS: RESP 20
[2017-06-24 15:27] VITALS: BP 125/73; PULSE 74; TEMP 98; O2SAT 100
--- NOTE | 2017-06-24 20:54 | CARD ---
APPROVED REPORT EKG Measurement Heart [id number] <Conclusion> Normal sinus rhythm with sinus arrhythmia Normal ECG
== END 2017-06-24 15:31 | disposition home or self-care (01) ==
LOC: ED 10:38
DX: R10.9 Unspecified abdominal pain (principal); R33.9 Retention of urine, unspecified; M06.9 Rheumatoid arthritis, unspecified

== ENCOUNTER 2017-08-08 09:45 | Inpatient (IN) | payer MEDICARE ==
--- NOTE | 2017-08-08 10:28 | ED PDOC ---
Arrival/HPI - General Historian: Patient EM Caveat: Altered Mental Status, Dementia - History of Present Illness Time/Duration: Prior to Arrival Symptom Onset: Sudden Symptom Course: Unchanged Activities at Onset: Rest Context: Home - General Chief Complaint: Altered Mental Status Time Seen by Provider: 08/08/17 09:49 - History of Present Illness Narrative History of Present Illness (Text): 08/08/17 10:23 This is an 87 yo female with past medical hx of dementia and paranoia, HTN, diverticulosis, presenting after fall at home. Patient was brought in by ambulance. Home health aide usually comes by to help her every day. Aide left around 2 PM yesterday. When she came by again this morning, patient was on floor in dining room covered in urine. She also had abrasions on her face and knees and swelling around her neck. Patient cannot provide any hx and does not recall the event. She presently complains of some chest pain and some right arm pain. PMH: dementia, paranoia, diverticulosis PSH: cholecystectomy, appendectomy Allergies: ASA, iodine, PCN, sulfa FH: non contributory Social hx: no smoking, drinking, drug use. lives alone. uses cane. 08/08/17 10:34 (Dale Kennedy) Past Medical History - Provider Review Nursing Documentation Reviewed: Yes - Travel History Have you recently traveled outside [place] w/in the past 3 mons?: No - Infectious Disease Hx of Infectious Diseases: None - Tetanus Immunization Tetanus Immunization: Unknown - Reproductive Menopause: Yes - Cardiac Hx Cardiac Disorders: Yes - Pulmonary Hx Respiratory Disorders: No - Neurological Hx Neurological Disorder: Yes Hx Dementia: Yes - HEENT Hx HEENT Disorder: Yes ([place], wears eyeglasses) Hx Cataracts: Yes - Renal Hx Renal Disorder: Yes (KIDNEY STONES) - Endocrine/Metabolic Hx Endocrine Disorders: No - Hematological/Oncological Hx Blood Disorders: No - Integumentary Hx Dermatological Disorder: No - Musculoskeletal/Rheumatological Hx Musculoskeletal Disorders: Yes (rheumatoid arthritis) - Gastrointestinal Hx Gastrointestinal Disorders: Yes (takes stool softeners for constapation) - Genitourinary/Gynecological Hx Genitourinary Disorders: Yes (urgenency/hesitancy) - Psychiatric Hx Psychophysiologic Disorder: Yes Hx Anxiety: Yes Hx Depression: Yes Hx Emotional Abuse: No Hx Physical Abuse: No Hx Substance Use: No Other/Comment: Early onset dementia - Surgical History Hx Appendectomy: Yes Hx Cholecystectomy: Yes Other/Comment: colon polyps - Anesthesia Hx Anesthesia: Yes Hx Anesthesia Reactions: No - Suicidal Assessment Feels Threatened In Home Enviroment: No Family/Social History - Physician Review Nursing Documentation Reviewed: Yes Family/Social History: No Known Family HX Smoking Status: Former Smoker Hx Alcohol Use: No Hx Substance Use: No Hx Substance Use Treatment: No Allergies/Home Meds Allergies/Adverse Reactions: Allergies aspirin Allergy (Verified 08/11/17 17:35) RASH iodine Allergy (Verified 08/11/17 17:35) RASH Penicillins Allergy (Verified 08/11/17 17:35) RASH Sulfa (Sulfonamide Antibiotics) Allergy (Verified 08/11/17 17:35) RASH Home Medications: Home Meds Medication Instructions Recorded Confirmed risperiDONE [RisperDAL Tab] 0.5 mg PO BID 08/08/17 08/11/17 Review of Systems - Review of Systems Systems not reviewed;Unavailable: Altered Mental Status Physical Exam Vital Signs Reviewed: Yes Appearance: Positive for: Unkept Mental Status: Positive for: Confused. No: Alert and Oriented X 3 Finger Stick Blood Glucose: 103 - Systems Exam Head: Present: Swelling, Abrasion. No: Atraumatic Pupils: Present: PERRL Extroacular Muscles: Present: EOMI Neck: Present: Other (some swelling around neck ) Respiratory/Chest: Present: Decreased Breath Sounds, Other (mild chest wall tenderness) Cardiovascular: Present: Normal S1, S2 Abdomen: No: Tenderness, Distention, Peritoneal Signs Upper Extremity: Present: Tenderness (tenderness right upper extremity ). No: Normal Inspection, Cyanosis, Edema, Normal ROM Lower Extremity: Present: Tenderness, Erythema, Other (tenderness, abrasion b/l knees ). No: Normal Inspection Neurological: Present: CN II-XII Intact Skin: Present: Warm, Dry Psychiatric: Present: Alert. No: Oriented x 3, Normal Insight, Normal Concentration Vital Signs Temp Pulse Resp BP Pulse Ox 08/08/17 11:10 71 18 121/74 96 08/08/17 09:58 97.8 F 77 18 119/71 95 - Lab Interpretations Microbiology Results: Microbiology Results 08/08/17 11:00 Blood Blood Culture - Preliminary NO GROWTH AFTER 4 DAYS 08/08/17 10:30 Blood Blood Culture - Preliminary NO GROWTH AFTER 4 DAYS Lab Results: 08/08/17 10:30 08/08/17 10:30 Lab Results 08/08/17 10:30: pO2 65 H, VBG pH 7.32, VBG pCO2 41.0, VBG HCO3 21.1, VBG Total CO2 22.4, VBG O2 Sat (Calc) 94.1 H, VBG Base Excess -4.8 L, VBG Potassium 4.6, Sodium 138.0, Chloride 106.0, Glucose 122 H, Lactate 2.4 H, FiO2 21.0, Venous Blood Potassium 4.6 08/08/17 10:30: PT 13.7 H, INR 1.24 H, APTT 30.4 08/08/17 10:30: Sodium 139, Chloride 108 H, Potassium 4.0, Carbon Dioxide 21, Anion Gap 14, BUN 22 H, Creatinine 1.0, Est GFR ( Amer) > 60, Est GFR ( Non-Af Amer) 52, Random Glucose 122 H, Calcium 9.4, Magnesium 1.8, Total Bilirubin 0.8, AST 94 H D, ALT 29, Alkaline Phosphatase 61, Lactate Dehydrogenase 1075 H, Total Creatine Kinase 3824 H, CK-MB (CK-2) 35.7 H, CK-MB ( CK-2) % 0.9 L, Troponin I 5.65 H* D, Total Protein 6.9, Albumin 3.8, Globulin 3.1, Albumin/Globulin Ratio 1.2 08/08/17 10:30: WBC 18.6 H D, RBC 4.49, Hgb 12.5, Hct 38.8, MCV 86.4, MCH 27.8, MCHC 32.2, RDW 14.9 H, Plt Count 280, MPV 9.2, Gran % 82.9 H, Lymph % (Auto) 4.7 L, [place] % (Auto) 12.3 H, Eos % (Auto) 0.0 L, Baso % (Auto) 0.1, Gran # 15.38 H, Lymph # 0.9 L, [place] # 2.3 H, Eos # 0.0, Baso # 0.02, Neutrophils % ( Manual) 88 H, Lymphocytes % (Manual) 5 L, Monocytes % (Manual) 7 H, Toxic Granulation Slight, Platelet Evaluation Normal, Anisocytosis (manual) Slight - RAD Interpretation Radiology Orders: 08/08/17 10:14 CHEST ONE VIEW [RAD] Stat 08/08/17 10:16 ABD & PELVIS W/O PO OR IV CONT [CT] Stat KNEES BILATERAL [RAD] Stat PELVIS ONE VIEW [RAD] Stat 08/08/17 10:19 ELBOW RIGHT 3 VIEWS ROUTINE [RAD] Stat 08/08/17 10:22 CERVICAL SPINE W/O CONTRAST [CT] Stat HEAD W/O CONTRAST [CT] Stat - Medication Orders Current Medication Orders: Discontinued Medications Alprazolam (Xanax) 0.25 mg PO BID PRN; Protocol PRN Reason: Anxiety Stop: 08/16/17 18:01 Last Admin: 08/11/17 09:51 Dose: 0.25 mg Behavioural Document 08/11/17 09:51 SD (Rec: 08/11/17 09:51 SD [facility] [id number]) Maintenance Maintenance Dose No Nonmedicinal Nonmedicinal Interventions Therapeutic Communication Behavior Behavior for Medication: Anxiety Re-Assess: Reassess Psych Meds Document 08/11/17 10:51 SD (Rec: 08/11/17 12:40 SD [id number]) Reassess Psych Med Effective Aspirin (Aspirin) 325 mg PO STAT STA Stop: 08/08/17 13:22 Last Admin: 08/08/17 14:22 Dose: Aspirin (Ecotrin) 81 mg PO DAILY [facility] Last Admin: 08/10/17 10:22 Dose: Not Given Non-Admin Reason: Allergy Atorvastatin Calcium (Lipitor) 40 mg PO DAILY [facility] Last Admin: 08/11/17 09:50 Dose: 40 mg Bisacodyl (Dulcolax) 10 mg RC ONCE ONE Stop: 08/09/17 10:44 Last Admin: 08/09/17 11:00 Dose: 10 mg Diltiazem HCl (Cardizem) 20 mg IVP ONCE ONE Stop: 08/10/17 00:08 Last Admin: 08/10/17 00:35 Dose: 20 mg IVP Administration Document 08/10/17 00:35 LGA (Rec: 08/10/17 00:36 [email or web address]) Charges for Administration # of IVP Administrations 1 MAR Pulse and Blood Pressure Document 08/10/17 00:35 LGA (Rec: 08/10/17 00:36 A [id number]) Pulse Pulse Rate (60-90) 129 Blood Pressure Blood Pressure (100/60-150/90) 127/78 Enoxaparin Sodium (Lovenox) 72 mg SC STAT ONE PRN Reason: Protocol Stop: 08/08/17 13:22 Last Admin: 08/08/17 14:20 Dose: 72 mg Subcutaneous Administrations Document 08/08/17 14:20 SE (Rec: 08/08/17 14:20 SE [id number]) Injection Site MAR Injection Site Left Abdomen Charges for Administration # of Subcutaneous Administrations 1 Sodium Chloride (Sodium Chloride 0.9%) 1,000 mls @ 100 mls/hr IV .Q10H [facility] Last Admin: 08/09/17 05:39 Dose: 100 mls/hr eMAR Start Stop Document 08/09/17 05:39 STM (Rec: 08/09/17 05:40 [facility] [id number]) Intravenous Solution Start Date 08/09/17 Start Time 05:39 Ciprofloxacin (Cipro 400mg/200ml Dsw) 400 mg in 200 mls @ 133.3 mls/hr IVPB STAT STA PRN Reason: Protocol Stop: 08/08/17 12:39 Last Admin: 08/08/17 11:31 Dose: 133.3 mls/hr eMAR Start Stop Document 08/08/17 11:31 SE (Rec: 08/08/17 11:31 SE [id number]) Intravenous Solution Start Date 08/08/17 Start Time 11:31 Metoprolol Tartrate (Lopressor) 25 mg PO BID [facility] Last Admin: 08/11/17 09:51 Dose: 25 mg MAR Pulse and Blood Pressure Document 08/11/17 09:51 SD (Rec: 08/11/17 09:51 SD [id number]) Pulse Pulse Rate (60-90) 76 Blood Pressure Blood Pressure (100/60-150/90) 138/80 Pneumococcal Polyvalent Vaccine (Pneumovax 23 Vaccine) 0.5 ml IM .ONCE ONE Stop: 08/08/17 17:20 Last Admin: 08/08/17 19:17 Dose: MAR Immunization Data Document 08/08/17 19:17 FM (Rec: 08/08/17 19:18 [id number]) Immunization Data Vaccine Information Sheet Given No: confused Immunization Registry Document 08/08/17 19:17 FM (Rec: 08/08/17 19:18 FM [id number]) Immunization Registry Consent Date 08/08/17 Risperidone (Risperdal Tab) 0.5 mg PO BID [place] PRN Reason: Protocol Last Admin: 08/11/17 09:50 Dose: 0.5 mg Behavioural Document 08/11/17 09:50 SD (Rec: 08/11/17 09:51 SD [id number]) Maintenance Maintenance Dose Yes Nonmedicinal Nonmedicinal Interventions Therapeutic Communication Re-Assess: Reassess Psych Meds Document 08/11/17 10:50 SD (Rec: 08/11/17 12:40 SD [id number]) Reassess Psych Med Effective Sodium Phosphate (Fleet Enema) 135 ml RC ONCE ONE Stop: 08/09/17 13:01 Last Admin: 08/09/17 14:11 Dose: Disposition/Present on Arrival - Present on Arrival Any Indicators Present on Arrival: No History of DVT/PE: No History of Uncontrolled Diabetes: No Urinary Catheter: No History of Decub. Ulcer: No History Surgical Site Infection Following: None - Disposition Have Diagnosis and Disposition been Completed?: Yes Disposition Time: 16:00 Patient Plan: Admission - Disposition Diagnosis: NSTEMI (non-ST elevated myocardial infarction) Disposition: HOSPITALIZED Condition: STABLE
[2017-08-08] MEDS: Sodium Chloride 0.9% 1,000 ML IV SCH ×2 (10:32→20:24)
[2017-08-08 10:50] LABS: BASO # 0.02 K/mm3 (0.0-2.0); BASO % 0.1 % (0.0-3.0); GRAN # 15.38 (1.4-6.5); GRAN % 82.9 % (50.0-68.0); HEMATOCRIT 38.8 % (36.0-48.0); LYMPH # 0.9 (1.2-3.4); LYMPH % 4.7 % (22.0-35.0); MEAN CELL VOLUME 86.4 fl (80.0-105.0); MEAN CORPUSCULAR HEMOGLOBIN 27.8 pg (25.0-35.0); MEAN CORPUSCULAR HGB CONC 32.2 g/dl (31.0-37.0); MEAN PLATELET VOLUME 9.2 fl (7.0-11.0); MONO # 2.3 (0.1-0.6); MONO % 12.3 % (1.0-6.0); PLATELET COUNT 280 10^3/uL (120.0-450.0); RED CELL DISTRIBUTION WIDTH 14.9 % (11.5-14.5); WHITE BLOOD COUNT 18.6 10^3/ul (4.5-11.0)
[2017-08-08 11:03] LABS: VENOUS BLOOD GAS BASE EXCESS -4.8 mmol/L (0.0-2.0); VENOUS BLOOD PH 7.32 (7.32-7.43)
[2017-08-08 11:04] LABS: INR 1.24 (0.93-1.08); PARTIAL THROMBOPLASTIN TIME 30.4 Seconds (25.1-36.5)
[2017-08-08] MEDS ORDERED: Ciprofloxacin 400mg/200ml D5W 400 MG/200 ML BAG IVPB STA (11:09)
[2017-08-08 11:22] LABS: ANISOCYTOSIS SLIGHT; NEUTROPHIL 88 % (50.0-70.0); PLATELET ESTIMATE NORMAL (NORMAL); TOXIC GRANULATION SLIGHT
[2017-08-08 11:36] LABS: BLOOD UREA NITROGEN 22 mg/dL (7-21); CHLORIDE 108 mmol/L (98-107); GFR AFRICAN-AMERICAN > 60; GLUCOSE,RANDOM 122 mg/dL (70-110); SODIUM 139 mmol/L (132-148)
[2017-08-08 11:37] LABS: ALB/GLOB RATIO 1.2 (1.1-1.8); ALT/SGPT 29 U/L (7-56); AST/SGOT 94 U/L (14-36); BILIRUBIN,TOTAL 0.8 mg/dL (0.2-1.3); CALCIUM 9.4 mg/dL (8.4-10.5); CARBON DIOXIDE 21 mmol/L (21-33); MAGNESIUM 1.8 mg/dL (1.7-2.2); TOTAL PROTEIN 6.9 g/dL (5.8-8.3)
[2017-08-08 11:38] LABS: ALKALINE PHOSPHATASE 61 U/L (38-126)
[2017-08-08 11:40] LABS: TROPONIN I 5.65 ng/mL
--- NOTE | 2017-08-08 12:41 | CT ---
PROCEDURE: CT HEAD WITHOUT CONTRAST. HISTORY: fall at home COMPARISON: 05/08/2017 TECHNIQUE: Axial computed tomography images were obtained through the head/brain without intravenous contrast. Radiation dose: Total exam DLP = 736 mGy-cm. This CT exam was performed using one or more of the following dose reduction techniques: Automated exposure control, adjustment of the mA and/or kV according to patient size, and/or use of iterative reconstruction technique. FINDINGS: HEMORRHAGE: No intracranial hemorrhage. BRAIN: No mass effect or edema. No atrophy or chronic microvascular ischemic changes. VENTRICLES: Unremarkable. No hydrocephalus. CALVARIUM: Unremarkable. PARANASAL SINUSES: Unremarkable as visualized. No significant inflammatory changes. MASTOID AIR CELLS: Unremarkable as visualized. No inflammatory changes. OTHER FINDINGS: None. IMPRESSION: No acute findings
--- NOTE | 2017-08-08 12:45 | CT ---
PROCEDURE: CT Cervical Spine without contrast HISTORY: Patient fell COMPARISON: None available. TECHNIQUE: Axial computed tomography images were obtained of the cervical spine without the use of intravenous contrast. Coronal and sagittal reformatted images were created and reviewed. Radiation dose: Total exam DLP = 285 mGy-cm. This CT exam was performed using one or more of the following dose reduction techniques: Automated exposure control, adjustment of the mA and/or kV according to patient size, and/or use of iterative reconstruction technique. FINDINGS: VERTEBRAE: No fracture. Normal alignment. No destructive bony lesion. DISCS/SPINAL CANAL/NEURAL FORAMINA: No significant central canal or neural foraminal stenosis. Degenerative changes with bony fusion can be seen at C4-5. There is disc degeneration with a vacuum disc at C5-6 and C6-7. Degenerative changes are seen at the C1-2 articulations PARASPINAL SOFT TISSUES: Unremarkable. OTHER FINDINGS: None. IMPRESSION: No evidence of fracture
--- NOTE | 2017-08-08 12:52 | CT ---
PROCEDURE: CT Abdomen and Pelvis without intravenous contrast HISTORY: abd pain COMPARISON: 06/24/2017 TECHNIQUE: Without contrast.. Contrast Dose: Radiation dose: Total exam DLP = 367 mGy-cm. This CT exam was performed using one or more of the following dose reduction techniques: Automated exposure control, adjustment of the mA and/or kV according to patient size, and/or use of iterative reconstruction technique. FINDINGS: LOWER THORAX: Unremarkable. LIVER: Unremarkable. No gross lesion or ductal dilatation. GALLBLADDER AND BILE DUCTS: Gallbladder removed PANCREAS: Unremarkable. No gross lesion or ductal dilatation. SPLEEN: Unremarkable. ADRENALS: Unremarkable. No mass. KIDNEYS AND URETERS: There is atrophy of the right kidney VASCULATURE: Unremarkable. No aortic aneurysm. BOWEL: Unremarkable. No obstruction. No gross mural thickening. There is moderate constipation and diverticulosis of the sigmoid colon. APPENDIX: Unremarkable. Normal appendix. PERITONEUM: Unremarkable. No free fluid. No free air. LYMPH NODES: Unremarkable. No enlarged lymph nodes. BLADDER: Unremarkable. REPRODUCTIVE: Unremarkable. BONES: No acute fracture. OTHER FINDINGS: None. IMPRESSION: No acute findings
[2017-08-08] MEDS ORDERED: Enoxaparin 80 mg Syringe SC ONE (13:21)
--- NOTE | 2017-08-08 13:32 | CARD ---
APPROVED REPORT EKG Measurement Heart [id number] <Conclusion> Sinus rhythm with premature supraventricular complexes Cannot rule out Anterior infarct, age undetermined Abnormal ECG
--- NOTE | 2017-08-08 13:37 | RAD ---
PROCEDURE: Radiographs of the right elbow. HISTORY: fall COMPARISON: No prior. FINDINGS: BONES: Normal. No fracture. JOINTS: Normal. No osteoarthritis. SOFT TISSUES: Normal. JOINT EFFUSION: None. OTHER FINDINGS: None. IMPRESSION: Unremarkable radiographs of the right elbow.
--- NOTE | 2017-08-08 13:38 | RAD ---
PROCEDURE: CHEST RADIOGRAPH, 1 VIEW HISTORY: fall/chest pain COMPARISON: 06/24/2017 FINDINGS: LUNGS: Clear. PLEURA: No pneumothorax or pleural fluid seen. CARDIOVASCULAR: Normal. OSSEOUS STRUCTURES: No significant abnormalities. VISUALIZED UPPER ABDOMEN: Normal. OTHER FINDINGS: None. IMPRESSION: No active disease.
--- NOTE | 2017-08-08 13:39 | RAD ---
PROCEDURE: Radiographs of the pelvis. HISTORY: fall COMPARISON: None. FINDINGS: BONES: Pelvic Bones: Unremarkable. Hips: Grossly unremarkable. JOINTS: Sacroiliac Joints: Unremarkable. Pubic Symphysis: Unremarkable. OTHER FINDINGS: None. IMPRESSION: Unremarkable radiographs of the pelvis.
--- NOTE | 2017-08-08 13:40 | RAD ---
PROCEDURE: Bilateral Knee Radiographs. HISTORY: fall COMPARISON: None. FINDINGS: BONES: Right Knee: Normal. No fracture. Left Knee: Normal. No fracture. JOINTS: Right Knee: Normal. No osteoarthritis. Left knee: Normal. No osteoarthritis. SOFT TISSUES: Right Knee: Normal. Left Knee: Normal. JOINT EFFUSION: Right Knee: None. Left Knee: None. OTHER FINDINGS: None. IMPRESSION: Normal radiographs of the knees.
--- NOTE | 2017-08-08 14:03 | CP.PCM.CON ---
History of Present Illness - History of Present Illness History of Present Illness: Critical Care Progress Note HPI: patient is 87yo female with PMhx of dementia, HTN, presenting s.p fall at home. Pt was found down by the home health aide, on the floor. Noted to have abrasions to her face, knees. Pt noted to have rhabdo, and elevated troponin on labs. EKG without acute ischemic changes. Denies fever, chills, cough, chest pain, sob palpitations. No other constitutional symptoms. PMH: dementia, paranoia, diverticulosis PSH: cholecystectomy, appendectomy Allergies: ASA, iodine, PCN, sulfa FH: non contributory Social hx: no smoking, drinking, drug use. lives alone. Review of Systems - Review of Systems Review of Systems: As per HPI Past Patient History - Infectious Disease Hx of Infectious Diseases: None - Tetanus Immunizations Tetanus Immunization: Unknown - Past Social History Smoking Status: Former Smoker - CARDIAC Hx Cardiac Disorders: Yes - PULMONARY Hx Respiratory Disorders: No - NEUROLOGICAL Hx Neurological Disorder: Yes Hx Dementia: Yes - HEENT Hx HEENT Problems: Yes ([place], wears eyeglasses) Hx Cataracts: Yes - RENAL Hx Chronic Kidney Disease: Yes (KIDNEY STONES) - ENDOCRINE/METABOLIC Hx Endocrine Disorders: No - HEMATOLOGICAL/ONCOLOGICAL Hx Blood Disorders: No - INTEGUMENTARY Hx Dermatological Problems: No - MUSCULOSKELETAL/RHEUMATOLOGICAL Hx Musculoskeletal Disorders: Yes (rheumatoid arthritis) - GASTROINTESTINAL Hx Gastrointestinal Disorders: Yes (takes stool softeners for constapation) - GENITOURINARY/GYNECOLOGICAL Hx Genitourinary Disorders: Yes (urgenency/hesitancy) - PSYCHIATRIC Hx Psychophysiologic Disorder: Yes Hx Anxiety: Yes Hx Depression: Yes Hx Emotional Abuse: No Hx Physical Abuse: No Hx Substance Use: No Other/Comment: Early onset dementia - SURGICAL HISTORY Hx Appendectomy: Yes Hx Cholecystectomy: Yes Other/Comment: colon polyps - ANESTHESIA Hx Anesthesia: Yes Hx Anesthesia Reactions: No Meds Allergies/Adverse Reactions: Allergies Allergy/AdvReac Type Severity Reaction Status Date / Time aspirin Allergy RASH Verified 08/08/17 09:52 iodine Allergy RASH Verified 08/08/17 09:52 Penicillins Allergy RASH Verified 08/08/17 09:52 Sulfa (Sulfonamide Allergy RASH Verified 08/08/17 09:52 Antibiotics) - Medications Medications: Current Medications Sodium Chloride (Sodium Chloride 0.9%) 1,000 mls @ 100 mls/hr IV .Q10H CARYN Last Admin: 08/08/17 10:32 Dose: 100 mls/hr Physical Exam - Constitutional Appears: Well, Non-toxic, No Acute Distress - Head Exam Additional comments: multiple bruises - ENT Exam ENT Exam: Mucous Membranes Moist - Respiratory Exam Respiratory Exam: Clear to Auscultation Bilateral, NORMAL BREATHING PATTERN - Cardiovascular Exam Cardiovascular Exam: REGULAR RHYTHM, +S1, +S2 - GI/Abdominal Exam GI & Abdominal Exam: Normal Bowel Sounds, Soft - Extremities Exam Extremities exam: Positive for: normal inspection - Skin Skin Exam: Normal Color Results - Vital Signs Recent Vital Signs: Last Vital Signs Temp 97.8 F 08/08/17 09:58 Pulse 71 08/08/17 11:10 Resp 18 08/08/17 11:10 BP 121/74 08/08/17 11:10 Pulse Ox 96 08/08/17 11:10 - Labs Result Diagrams: 08/08/17 10:30 08/08/17 10:30 Labs: Laboratory Results - last 24 hr 08/08/17 08/08/17 08/08/17 10:30 10:30 10:30 WBC 18.6 H D RBC 4.49 Hgb 12.5 Hct 38.8 MCV 86.4 MCH 27.8 MCHC 32.2 RDW 14.9 H Plt Count 280 MPV 9.2 Gran % 82.9 H Lymph % (Auto) 4.7 L Holt % (Auto) 12.3 H Eos % (Auto) 0.0 L Baso % (Auto) 0.1 Gran # 15.38 H Lymph # 0.9 L Holt # 2.3 H Eos # 0.0 Baso # 0.02 Neutrophils % (Manual) 88 H Lymphocytes % (Manual) 5 L Monocytes % (Manual) 7 H Toxic Granulation Slight Platelet Evaluation Normal Anisocytosis (manual) Slight PT 13.7 H INR 1.24 H APTT 30.4 pO2 VBG pH VBG pCO2 VBG HCO3 VBG Total CO2 VBG O2 Sat (Calc) VBG Base Excess VBG Potassium Sodium 139 Chloride 108 H Glucose Lactate FiO2 Potassium 4.0 Carbon Dioxide 21 Anion Gap 14 BUN 22 H Creatinine 1.0 Est GFR ( Amer) > 60 Est GFR (Non-Af Amer) 52 Random Glucose 122 H Calcium 9.4 Magnesium 1.8 Total Bilirubin 0.8 AST 94 H D ALT 29 Alkaline Phosphatase 61 Lactate Dehydrogenase 1075 H Total Creatine Kinase 3797 H CK-MB (CK-2) 35.7 H CK-MB (CK-2) % 0.9 L Troponin I 5.65 H* D Total Protein 6.9 Albumin 3.8 Globulin 3.1 Albumin/Globulin Ratio 1.2 Venous Blood Potassium 08/08/17 10:30 WBC RBC Hgb Hct MCV MCH MCHC RDW Plt Count MPV Gran % Lymph % (Auto) Holt % (Auto) Eos % (Auto) Baso % (Auto) Gran # Lymph # Holt # Eos # Baso # Neutrophils % (Manual) Lymphocytes % (Manual) Monocytes % (Manual) Toxic Granulation Platelet Evaluation Anisocytosis (manual) PT INR APTT pO2 65 H VBG pH 7.32 VBG pCO2 41.0 VBG HCO3 21.1 VBG Total CO2 22.4 VBG O2 Sat (Calc) 94.1 H VBG Base Excess -4.8 L VBG Potassium 4.6 Sodium 138.0 Chloride 106.0 Glucose 122 H Lactate 2.4 H FiO2 21.0 Potassium Carbon Dioxide Anion Gap BUN Creatinine Est GFR ( Amer) Est GFR (Non-Af Amer) Random Glucose Calcium Magnesium Total Bilirubin AST ALT Alkaline Phosphatase Lactate Dehydrogenase Total Creatine Kinase CK-MB (CK-2) CK-MB (CK-2) % Troponin I Total Protein Albumin Globulin Albumin/Globulin Ratio Venous Blood Potassium 4.6 - Imaging and Cardiology Chest x-ray Status: Image reviewed by me Assessment & Plan - Assessment and Plan (Free Text) Assessment: 87yo female a/w rhabdo, NSTEMI RHabdomyolosis NSTEMI Fall Dehydration - currently afebrile, HD stable, comfortable, O2 sat 99% - Labs reviewed, elevated troponin, and CPK - Denies SOB, CP, Dizziness, N/V, abd pain Recommend: - supp o2 as needed - panculture - check procalcitonin - UA, Ulytes - Heparin drip - ASA, Plavix, BB, Statin - ECHO - cardiology eval - serial EKGs - cardiology eval - stable, monitor on telemetry critical care time 35 minutes
[2017-08-08 14:23] LABS: URINE APPEARANCE CLEAR (CLEAR); URINE BILIRUBIN NEGATIVE (NEGATIVE); URINE BLOOD MODERATE (NEGATIVE); URINE COLOR YELLOW (YELLOW); URINE GLUCOSE (UA) NEGATIVE (NEGATIVE); URINE KETONE 15 mg/dL (NEGATIVE); URINE LEUKOCYTE ESTERASE NEGATIVE Leu/uL (NEGATIVE); URINE PROTEIN 100 mg/dL (<30 mg/dL); URINE UROBILINOGEN 0.2 E.U./dL (<1 E.U./dL)
[2017-08-08 14:31] LABS: URINE WBC 0 - 2 /hpf (0-6)
[2017-08-08 14:32] LABS: URINE BACTERIA FEW (NEG); URINE EPITHELIAL CELLS 0 - 2 /hpf (0-5)
[2017-08-08 14:48] LABS: VENOUS BLOOD PH 7.32 (7.32-7.43)
[2017-08-08 17:18] VITALS: BMI 28.3
[2017-08-08] MEDS ORDERED: Influenza Vaccine 60 mcg/0.5 mL SYR (4YR UP) IM ONE (17:19)
[2017-08-08] MEDS ORDERED: Pneumococcal 23-Valent Vaccine IM ONE (17:19)
--- NOTE | 2017-08-08 18:10 | HP ---
HISTORY OF PRESENT ILLNESS: The patient is an 87 year old woman with a past medical history of dementia, anxiety disorder and hypertension (diet controlled ) who was brought to [facility] ED by EMS after being found down on the ground at home by her home health aide. The patient was reportedly in her usual state of health when last seen by her home health aide and several hours later, she was found to be down on the ground, responsive but confused, covered in urine, and with multiple abrasions to her face. The patient could not recall the events leading up to her fall. Given her multiple abrasions, EMS was called and the patient was brought to [facility] for further evaluation. Upon arrival to the ED, she was noted to be confused but otherwise hemodynamically stable. She underwent multiple imaging studies all of which were unremarkable. Laboratory studies however disclosed a marked leukocytosis with WBC of 18.6 and elevated CPK and then elevated troponin of 5.65. She was started on IV fluids, Lovenox, and aspirin and subsequently admitted to the telemetry beltrán for continued management of [id number]-NE-[id number] NV, rhabdomyolysis, and leukocytosis. PAST MEDICAL HISTORY: As per HPI, also diverticulosis with prior admissions for diverticulitis. PAST SURGICAL HISTORY: Cholecystectomy and appendectomy. ALLERGIES: ASPIRIN, IODINE, PENICILLIN, AND SULFAS. FAMILY HISTORY: Noncontributory. SOCIAL HISTORY: The patient lives alone, but is closely followed by home health aide and her son. She denies any smoking history, alcohol use, or illicit drug abuse. REVIEW OF SYSTEMS: A 14-point review of systems is unobtainable secondary to altered mental status of the patient. PHYSICAL EXAMINATION: VITAL SIGNS: Temperature 97.8, pulse 71, blood pressure 121/74, respiratory rate 18, and oxygen saturation 96% on room air. GENERAL: Frail elderly woman appearing her stated age, lying in bed, in no apparent distress. HEENT: Normocephalic and atraumatic. PERRLA. EOMI. No scleral icterus. No conjunctival pallor. NECK: Supple with full range of motion. No JVD. No bruits. LUNGS: Clear to auscultation. CARDIOVASCULAR: Regular rate and rhythm. Normal S1 and S2. ABDOMEN: Normoactive bowel sounds, soft, nontender, and nondistended. EXTREMITIES: No edema. No joint deformities. NEUROLOGIC: Awake, alert, and oriented x2 (person and place). Moving all extremities. LABORATORY DATA: WBC 18.6 with 82% neutrophils, hemoglobin 12.5, hematocrit 39, and platelets 280. Sodium 139, potassium 4, chloride 108, bicarbonate 21, BUN 22, creatinine 1, glucose 122, CK 3797, troponin 5.65. IMAGING STUDIES: 1. Chest x-ray demonstrates no acute pathology. 2. Knee x-ray demonstrates no acute pathology. 3. Pelvis x-ray demonstrates no acute pathology. 4. CT of the C-spine without contrast demonstrates no acute pathology. 5. CT of the head without contrast demonstrates no acute pathology. 6. CT of the abdomen and pelvis demonstrates no acute pathology. ASSESSMENT: The patient is an 87 year old woman with diet-controlled hypertension and dementia who is brought to [facility] ED by EMS after being found down at home by her home health aide and who was admitted to the telemetry beltrán for management of [id number]-KM-wynsmumug myocardial infarction, rhabdomyolysis and leukocytosis. PLAN: 1. NSTEMI. Dr. Jolley of cardiology has been consulted for further evaluation and recommendations. The patient has received aspirin 325 mg p.o. x 1 and Lovenox. We will start Lipitor 40 mg p.o. daily. We will cycle cardiac enzymes and EKGs q. 8 hours x3 sets. We will order transthoracic echocardiogram for further evaluation. 2. Rhabdomyolysis. Labs demonstrated a CK of 3797 and the patient's renal function remains intact. Continue with IV fluid hydration consisting of normal saline at 100 mL per hour. We will repeat CK in the morning and continue to monitor urine output. 3. Leukocytosis, etiology unclear, but consider secondary distress response. The patient remains afebrile and hemodynamically stable with no signs or symptoms of sepsis. Urine cultures have been ordered and are pending. We will check procalcitonin level. 4. Hypertension, diet controlled. Continue to monitor hemodynamics and add antihypertensives as needed. 5. Dementia. The patient appears to be at her baseline mental status. We will continue to monitor. 6. Prophylaxis. GI prophylaxis is not indicated as the patient is eating. The patient has received weight-based Lovenox because DVT prophylaxis is not indicated. CODE STATUS: Full code. Barney James MD VANDANA
--- NOTE | 2017-08-08 19:36 | CARD ---
APPROVED REPORT EKG Measurement Heart [id number] <Conclusion> Normal sinus rhythm Normal ECG
[2017-08-09] MEDS: Sodium Chloride 0.9% 1,000 ML IV SCH (05:39)
[2017-08-09 07:08] LABS: BASO # 0.04 K/mm3 (0.0-2.0); BASO % 0.4 % (0.0-3.0); EOS % 0.3 % (1.5-5.0); GRAN # 7.49 (1.4-6.5); GRAN % 65.8 % (50.0-68.0); LYMPH # 2.3 (1.2-3.4); MEAN CELL VOLUME 87.1 fl (80.0-105.0); MEAN CORPUSCULAR HEMOGLOBIN 27.4 pg (25.0-35.0); MEAN CORPUSCULAR HGB CONC 31.4 g/dl (31.0-37.0); MEAN PLATELET VOLUME 9.1 fl (7.0-11.0); MONO # 1.5 (0.1-0.6); MONO % 13.5 % (1.0-6.0); RED CELL DISTRIBUTION WIDTH 14.6 % (11.5-14.5); WHITE BLOOD COUNT 11.4 10^3/ul (4.5-11.0)
[2017-08-09 08:40] LABS: ALB/GLOB RATIO 1.1 (1.1-1.8); ALKALINE PHOSPHATASE 49 U/L (38-126); ALT/SGPT 34 U/L (7-56); AST/SGOT 92 U/L (14-36); BILIRUBIN,TOTAL 0.6 mg/dL (0.2-1.3); BLOOD UREA NITROGEN 21 mg/dL (7-21); CALCIUM 8.6 mg/dL (8.4-10.5); CARBON DIOXIDE 23 mmol/L (21-33); CHLORIDE 112 mmol/L (98-107); CHOLESTEROL 139 mg/dL (130-200); GFR AFRICAN-AMERICAN > 60; GLUCOSE,RANDOM 94 mg/dL (70-110); POTASSIUM 3.7 mmol/L (3.6-5.0); SODIUM 140 mmol/L (132-148); TOTAL PROTEIN 5.9 g/dL (5.8-8.3)
--- NOTE | 2017-08-09 19:53 | CON ---
DATE: 08/09/2017 CARDIOLOGY CONSULTATION HISTORY: The patient is an 87-year-old woman who was found on the floor by her caregiver. The patient's past medical history is marked by history of dementia and severe anxiety disorder. She has been treated for hypertension with diet and without medications. There is no previous cardiac history. There is no chest pain or shortness of breath. The patient is markedly anxious. PAST SURGICAL HISTORY: Includes cholecystectomy as well as appendectomy. SOCIAL HISTORY: The patient does not smoke. REVIEW OF SYSTEMS: Unobtainable. PHYSICAL EXAMINATION: GENERAL: The patient is in a chair, screaming with marked anxiety. VITAL SIGNS: Blood pressure 141/82. The heart rate is in the 90s. NECK: Negative JVD. LUNGS: Without rales. HEART: S1 and S2. EXTREMITIES: Without edema. IMAGING: EKG shows no acute changes. LABORATORIES: Troponins peaking at 5.96. The is coming down from 3800 to 1400. Hemoglobin is 11. IMPRESSION: 1. Status post non-ST elevation myocardial infarction. 2. Coronary artery disease. 3. Status post syncope versus fall. 4. Hypertension. 5. Marked anxiety disorder. 6. Dementia. PLAN: Given these findings, the patient's non-STEMI will be treated medically. We will start her on a baby aspirin. Statin therapy has been ordered. We will add low-dose beta blockers. Henrique Jolley MD
--- NOTE | 2017-08-09 23:49 | PN ---
DATE: SUBJECTIVE: The patient is in room 277, bed 1. She is an 87-year-old female, in no acute distress. There have been no acute events overnight. She has no significant complaints at this time. PHYSICAL EXAMINATION: VITAL SIGNS: Temperature of 98.3, pulse rate of 77, blood pressure 137/74, respiratory rate of 18 with 97% saturation on room air. HEENT: Negative. NECK: Supple with full range of motion. LUNGS: Clear to auscultation and percussion bilaterally. HEART: Regular rate and rhythm. No murmurs. ABDOMEN: Soft. It is nontender. There are no masses. Bowel sounds are normoactive. EXTREMITIES: Show no deformities or edema. NEUROLOGIC: The patient is intact. LABORATORY DATA: WBC this morning is 11.4, which is down from 18.6; hemoglobin and hematocrit are 11.0 and 35.0; the granulocytes are 65.8, which yesterday were 82.9. Chemistry is entirely within normal limits with the exception of chloride of 112 and AST of 92. CK of 1457 with CK-MB of 21.2 and a 1.5. Troponin I was 5.96. Blood and urine cultures were essentially negative. The patient will continue to be monitored. She did suffer a fall which in turn gave her the elevated CPKs. The fall was at home, and she was found there by her home-health aide. It is unknown how long she had been on the ground when she was found by the home health aide. We will continue to give her IV fluids and continue monitoring her. DIAGNOSES AT THIS TIME: 1. Questionable fyk-SE-ykykiybsn myocardial infarction. 2. Fall. 3. Delirium. 4. Hyperlipidemia. Rolan James MD
[2017-08-10 06:55] LABS: BASO # 0.04 K/mm3 (0.0-2.0); BASO % 0.3 % (0.0-3.0); EOS # 0.1 (0.0-0.7); GRAN # 7.32 (1.4-6.5); HEMATOCRIT 32.9 % (36.0-48.0); LYMPH # 2.7 (1.2-3.4); LYMPH % 23.2 % (22.0-35.0); MEAN CELL VOLUME 86.6 fl (80.0-105.0); MEAN CORPUSCULAR HEMOGLOBIN 27.4 pg (25.0-35.0); MEAN CORPUSCULAR HGB CONC 31.6 g/dl (31.0-37.0); MEAN PLATELET VOLUME 9.3 fl (7.0-11.0); MONO # 1.5 (0.1-0.6); MONO % 12.5 % (1.0-6.0); RED CELL DISTRIBUTION WIDTH 14.7 % (11.5-14.5); WHITE BLOOD COUNT 11.6 10^3/ul (4.5-11.0)
[2017-08-10 07:12] LABS: ALKALINE PHOSPHATASE 48 U/L (38-126); ALT/SGPT 39 U/L (7-56); AST/SGOT 61 U/L (14-36); BILIRUBIN,TOTAL 0.3 mg/dL (0.2-1.3); BLOOD UREA NITROGEN 16 mg/dL (7-21); CARBON DIOXIDE 21 mmol/L (21-33); CHLORIDE 112 mmol/L (98-107); GFR AFRICAN-AMERICAN > 60; GLUCOSE,RANDOM 95 mg/dL (70-110); POTASSIUM 3.7 mmol/L (3.6-5.0); SODIUM 140 mmol/L (132-148); TOTAL PROTEIN 5.4 g/dL (5.8-8.3)
--- NOTE | 2017-08-10 11:09 | PN ---
SUBJECTIVE: The patient was seen and examined at bedside on the telemetry beltrán. Overnight she was noted to go into AFib with RVR with a pulse in the 140s , necessitating a Diltiazem bolus with subsequent rate control. The patient has also been started on Lopressor [address] b[address]d. by Dr. Jolley. This morning she feels okay overall and reports minimal pain at her left elbow but otherwise offers no complaints. PHYSICAL EXAMINATION: VITAL SIGNS: Temperature 98, pulse 98, blood pressure 127/78, respiratory rate 20, oxygen saturation 97% on room air. GENERAL: Frail elderly woman, appearing her stated age, lying in bed, in no apparent distress. HEENT: PERRL. EOMI. No scleral icterus. No conjunctival pallor. Abrasion to right mandaeism and chin. NECK: Supple with full range of motion. No JVD. No bruits. LUNGS: Clear to auscultation. CARDIOVASCULAR: Regular rate and rhythm. Normal S1 and S2. ABDOMEN: Normoactive bowel sounds. Soft, nontender and nondistended. EXTREMITIES: No edema. No joint deformities. NEUROLOGIC: Awake, alert, and oriented x3. Moving all extremities. LABORATORY DATA: WBC 11.6, with 53% neutrophils, hemoglobin 10, hematocrit 33, platelets 311. Chemistry reviewed and unremarkable. ASSESSMENT : The patient is an 87 year old woman with hypertension and dementia who was brought to [facility] ED by EMS after being found down at home by her home health aide and who was admitted to the telemetry beltrán for management of NSTEMI, rhabdomyolysis and leukocytosis. PLAN: 1. NSTEMI. Input from Dr. Jolley noted and appreciated. Continue medical therapy consisting of ASA 81 mg p.o. daily, Lipitor 40 mg p.o. daily and Metoprolol 25 mg p.o. b.i.d. A TTE is ordered and pending. 2. AFib with RVR, new onset. The patient presently remains rate controlled. Continue with Lopressor 25 mg p.o. b.i.d. The patient has a CHADS2 score of 2 however given her history of falls we will defer anticoagulation and maintain her on aspirin monotherapy. 3. Rhabdomyolysis, resolving. Labs demonstrate a favorably trending CK. We will discontinue IV fluids and continue to encourage oral intake. 4. Leukocytosis, likely secondary to stress response. WBC trending favorably. The patient remains afebrile and with negative cultures. A procalcitonin level was also unremarkable. 5. Hypertension. Continue Lopressor 25 mg p.o. b.i.d. 6. Dementia. The patient appears to be at her baseline mental status. 7. Prophylaxis. GI prophylaxis is not indicated as the patient is eating. Continue with SCDs for DVT prophylaxis. CODE STATUS: Full code. Barney James MD MTDD
--- NOTE | 2017-08-10 16:20 | CARD ---
APPROVED REPORT EKG Measurement Heart [id number] <Conclusion> Atrial fibrillation with rapid ventricular response Nonspecific T wave abnormality, probably digitalis effect Abnormal ECG
--- NOTE | 2017-08-10 18:18 | CARD ---
APPROVED REPORT EXAM: Two-dimensional and M-mode echocardiogram with Doppler and color Doppler. INDICATION Non STEMI 2D DIMENSIONS Left Atrium (2D)3.7 (1.6-4.0cm)IVSd1.0 (0.7-1.1cm) LVDd4.4 (3.9-5.9cm)PWd1.0 (0.7-1.1cm) LVDs3.0 (2.5-4.0cm)FS (%) 31.4 % LVEF (%)59.5 (>50%) M-Mode DIMENSIONS Aortic Root2.60 (2.2-3.7cm)Aortic Cusp Exc.1.40 (1.5-2.0cm) Aortic Valve AoV Peak Eytgxzuo561.0cm/Feliberto Peak GR.8mmHg Mitral Valve E/A ratio0.0 TDI E/Lateral E'0.0E/Medial E'0.0 Tricuspid Valve TR Peak [id number] [id number] Peak Gr.32mmHg [id number] LEFT VENTRICLE The left ventricle is normal size. There is normal left ventricular wall thickness. The left ventricular function is normal.EF-55% There is mild hypokinesis in the basal inferior wall. Transmitral Doppler flow pattern is Grade III-reversible restrictive diastolic dysfunction. No left ventricle thrombus noted on this study. There is no ventricular septal defect visualized. There is no left ventricular aneurysm. There is no mass noted in the left ventricle. RIGHT VENTRICLE The right ventricle is mildly dilated. There is normal right ventricular wall thickness. Systolic function is mildly reduced. ATRIA The left atrium size is normal. The right atrium size is normal. The interatrial septum is intact with no evidence for an atrial septal defect. AORTIC VALVE The aortic valve is calcified and displays decreased opening. No aortic regurgitation is present. Adortic Sclerosis Vs mild There is no aortic valvular vegetation. MITRAL VALVE The mitral valve is thickened but opens well. Mitral annular calcification is mild. Mitral regurgitation is mild to moderate. There is no mitral valve stenosis. There is no evidence of mitral valve prolapse. TRICUSPID VALVE The tricuspid valve leaflets are thickened , but open well. There is moderate tricuspid regurgitation.[id number] mmof hg. There is no tricuspid valve stenosis. There is no tricuspid valve prolapse or vegetation. PULMONIC VALVE The pulmonic valve is not well visualized. GREAT VESSELS The aortic root is normal in size. The ascending aorta is normal in size. The pulmonary artery is normal. The IVC is normal in size and collapses >50% with inspiration. PERICARDIAL EFFUSION There is no pleural effusion. There is a trace pericardial effusion. <Conclusion> The left ventricle is normal size. There is normal left ventricular wall thickness. The left ventricular function is normal.EF-55% Adortic Sclerosis Vs mild Mitral regurgitation is mild to moderate. There is moderate tricuspid regurgitation.[id number] mmof hg. The IVC is normal in size and collapses >50% with inspiration. There is a trace pericardial effusion. No vegetation noted.
[2017-08-11 05:28] VITALS: RESP 18
[2017-08-11 07:41] LABS: BASO # 0.06 K/mm3 (0.0-2.0); BASO % 0.6 % (0.0-3.0); EOS # 0.3 (0.0-0.7); EOS % 2.7 % (1.5-5.0); GRAN # 5.77 (1.4-6.5); GRAN % 61.4 % (50.0-68.0); HEMATOCRIT 32.2 % (36.0-48.0); LYMPH # 2.2 (1.2-3.4); MEAN CORPUSCULAR HEMOGLOBIN 27.3 pg (25.0-35.0); MEAN CORPUSCULAR HGB CONC 31.4 g/dl (31.0-37.0); MEAN PLATELET VOLUME 8.9 fl (7.0-11.0); MONO # 1.2 (0.1-0.6); MONO % 12.3 % (1.0-6.0); RED CELL DISTRIBUTION WIDTH 14.6 % (11.5-14.5); WHITE BLOOD COUNT 9.4 10^3/ul (4.5-11.0)
[2017-08-11 08:20] LABS: ALKALINE PHOSPHATASE 47 U/L (38-126); ALT/SGPT 37 U/L (7-56); AST/SGOT 47 U/L (14-36); BILIRUBIN,TOTAL 0.2 mg/dL (0.2-1.3); BLOOD UREA NITROGEN 18 mg/dL (7-21); CALCIUM 8.3 mg/dL (8.4-10.5); CARBON DIOXIDE 22 mmol/L (21-33); CHLORIDE 113 mmol/L (98-107); GFR AFRICAN-AMERICAN > 60; GLUCOSE,RANDOM 92 mg/dL (70-110); POTASSIUM 3.7 mmol/L (3.6-5.0); SODIUM 139 mmol/L (132-148); TOTAL PROTEIN 5.3 g/dL (5.8-8.3)
[2017-08-11 08:24] VITALS: PULSE 76; TEMP 98.8; O2SAT 95
[2017-08-11 09:52] VITALS: BP 138/80
--- NOTE | 2017-08-11 10:26 | PROCN ---
DATE: 08/10/2017 The patient is feeling much better after her bowel movement. No chest pain noted. PHYSICAL EXAMINATION: VITAL SIGNS: Blood pressure is 123/65. The heart rate is in the 70s. NECK: Negative JVD. LUNGS: Without rales. HEART: S1 and S2. EXTREMITIES: Without edema. LABORATORY DATA: Hemoglobin is 10.4. Chemistry is unremarkable. IMPRESSION: 1. Non-ST elevation myocardial infarction. 2. Coronary artery disease. 3. Status post fall. 4. Mild rhabdomyolysis, which has improved. PLAN: Given these findings, the patient seems to be doing better. We will attempt to get an echocardiogram to evaluate her LV function. Henrique Jolley MD cc:
--- NOTE | 2017-08-11 11:13 | PN ---
SUBJECTIVE: The patient was seen and examined at bedside on the general medical beltrán. No acute events overnight. She remains afebrile and hemodynamically stable. This morning she states she feels okay and offers no complaints. She is pending transferr to TCU for continued PT. OBJECTIVE: VITAL SIGNS: Temperature is 98.2, pulse is 62, blood pressure is 119/66, respiratory rate is 18, and oxygen saturation is 100% on room air. GENERAL: Frail elderly woman appearing her stated age, lying in bed in no apparent distress. HEENT: PERRL. EOMI. No scleral icterus. No conjunctival pallor. Abrasion to right zoroastrian and chin. NECK: Supple with full range of motion. No JVD. No bruits. LUNGS: Clear to auscultation. CARDIOVASCULAR: Regular rate and rhythm. Normal S1 and S2. ABDOMEN: Normal active bowel sounds. Soft, nontender, and nondistended. EXTREMITIES: No edema. No joint deformities. NEUROLOGIC: Awake, alert, and oriented x2 (person and place). Moving all extremities. LABORATORY DATA: WBC of 9.4, hemoglobin of 10, hematocrit of 32, and platelets of 294. Chemistry reviewed and unremarkable. Blood cultures with no growth to date. Urine culture with no growth to date. ASSESSMENT: The patient is an 87 year old woman with hypertension and dementia who was brought to [facility] ED after being found down at home by her home health aide and who was initially admitted to the telemetry beltrán for management of NSTEMI, rhabdomyolysis and leukocytosis who is demonstrating clinical improvement and pending transfer to the TCU. PLAN: 1. NSTEMI. Input from Dr. Jolley noted and greatly appreciated. Continue medical therapy consisting of ASA 81 mg p.o. daily, Lipitor 40 mg p.o. daily and Metoprolol 25 mg p.o. b.i.d. TTE has been reviewed. 2. AFib with RVR, new onset, resolved. Continue Lopressor 25 mg p.o. b.i.d. Despite her CHADS2 score, we will continue with aspirin monotherapy and hold anticoagulation given her propensity for falls. 3. Rhabdomyolysis, resolved. 4. Leukocytosis, likely secondary to stress response, resolved. 5. Hypertension. Continue Lopressor 25 mg p.o. b.i.d. 6. Dementia. The patient remains at her baseline mental status. Continue risperidone 0.5 mg p.o. b.i.d. 7. Prophylaxis. GI prophylaxis is not indicated as the patient is eating. Continue with SCDs for DVT prophylaxis. 8. Disposition: The patient is medically stable for transfer to [facility]. CODE STATUS: Full code. Barney James MD MTDD
--- NOTE | 2017-08-14 05:39 | DS ---
ADMITTING DIAGNOSES: NSTEMI, rhabdomyolysis. DISCHARGE DIAGNOSES: NSTEMI, rhabdomyolysis (resolved). SECONDARY DIAGNOSES: Hypertension, dementia and anxiety disorder. CONSULTATIONS: Dr. Jolley (Cardiology). IMAGING STUDIES: 1. Chest x-ray which demonstrated no acute pathology. 2. Bilateral knee x-ray which demonstrated no acute pathology. 3. Pelvic x-ray which demonstrated no acute pathology. 4. CT of the C-spine without contrast which demonstrated no acute pathology. 5. CT of the head without contrast which demonstrated no acute pathology. 6. CT of the abdomen and pelvis which demonstrated no acute pathology. HISTORY OF PRESENT ILLNESS: The patient is an 87 year old woman with a past medical history of dementia, anxiety disorder and hypertension who was brought to [facility] ED by EMS after being found down on the ground at home by her home health aide. The patient was reportedly in her usual state of health when last seen by her home health aide and several hours later she was found down on the ground, responsive but confused, covered in urine and with multiple abrasions to her face. The patient cannot recall the events leading up to her fall. Given her multiple abrasions, EMS was called and the patient was brought to [facility] for further evaluation. Upon arrival to the ED she was noted to be confused but otherwise hemodynamically stable. Multiple imaging studies were obtained which were unremarkable. Laboratory studies demonstrated marked leukocytosis with WBC of 18.6, an elevated CPK of over 4000 and an elevated troponin of 5.65. The patient was started on IV fluids and Lovenox before being admitted to the telemetry beltrán for continued management of NSTEMI, rhabdomyolysis and leukocytosis. HOSPITAL COURSE: Upon admission to the telemetry beltrán the patient was evaluated by Dr. Jolley of Cardiology. She deferred invasive cardiac workup and thus was medically managed with beta-blockade and statin therapy. Given her aspirin allergy and history of recurrent falls she was not a candidate for antiplatelet or anticoagulation therapy. Labs the following day demonstrated a favorably trending CK level. Her hospital course was unremarkable and she remained afebrile, hemodynamically stable and chest pain free during her entire hospital stay. She was noted to be rather deconditioned and thus was evaluated by the TCU. After medical stabilization she was accepted to the TCU for continued PT and by hospital day #3 was deemed stable for discharge to the TCU. CONDITION: Fair, improved. DISPOSITION: TCU. DISCHARGE MEDICATIONS: Metoprolol 25 mg p.o. b.i.d., Lipitor 40 mg p.o. daily, Risperidone 0.5 mg p.o. b.i.d. and Xanax 0.25 mg p.o. b.i.d. FOLLOWUP: The patient will be followed by her PMD and Dr. Jolley while on the TCU. Barney James MD MTDHugo
== END 2017-08-11 15:59 | DRG 281 ==
LOC: ED 09:45 → ERH 13:32 → 2RSO 15:25 → 5RSO 08-10 14:46
PROVIDERS: ADMIT Student in an Organized Health Care Education/Training Program; ATTEND Student in an Organized Health Care Education/Training Program
DX: I21.4 Non-ST elevation (NSTEMI) myocardial infarction (principal); M62.82 Rhabdomyolysis; F22 Delusional disorders; E86.0 Dehydration; F03.90 Unspecified dementia, unspecified severity, without behavioral disturbance, psychotic disturbance, mood disturbance, and anxiety; I48.91 Unspecified atrial fibrillation; D72.829 Elevated white blood cell count, unspecified; E78.5 Hyperlipidemia, unspecified; W19.XXXA Unspecified fall, initial encounter; F41.9 Anxiety disorder, unspecified; I25.10 Atherosclerotic heart disease of native coronary artery without angina pectoris; I11.9 Hypertensive heart disease without heart failure; M06.9 Rheumatoid arthritis, unspecified; Y92.009 Unspecified place in unspecified non-institutional (private) residence as the place of occurrence of the external cause; Z86.010 Personal history of colon polyps; Z87.442 Personal history of urinary calculi; Z87.891 Personal history of nicotine dependence; Z90.49 Acquired absence of other specified parts of digestive tract; S00.81XA Abrasion of other part of head, initial encounter; H26.9 Unspecified cataract; Z88.6 Allergy status to analgesic agent; Z88.0 Allergy status to penicillin; Z88.2 Allergy status to sulfonamides; Z88.8 Allergy status to other drugs, medicaments and biological substances

== ENCOUNTER 2017-08-11 16:02 | Inpatient (IN) | payer OTHER, MEDICARE ==
[2017-08-11] MEDS ORDERED: Pneumococcal 23-Valent Vaccine IM ONE (20:25)
[2017-08-11] MEDS ORDERED: Influenza Vaccine 60 mcg/0.5 mL SYR (4YR UP) IM ONE (20:25)
[2017-08-11 20:26] VITALS: BMI 22.3
--- NOTE | 2017-08-12 11:36 | HP ---
HISTORY OF PRESENT ILLNESS: The patient is an 87 year old woman with a past medical history of dementia, anxiety disorder and hypertension who was brought to [facility] ED by EMS after being found down on the ground at home by her home health aid. The patient was initially admitted to the telemetry beltrán for management of NSTEMI and rhabdomyolysis. After a cardiac workup with Dr. Jolley and aggressive IV fluid hydration, she recovered from her acute issues. Given her age and frail state, along with her history of recurrent falls, arrangements were made for transfer to the TCU for continued PT. PAST MEDICAL HISTORY: As per HPI also diverticulosis with prior admission for diverticulitis. PAST SURGICAL HISTORY: Cholecystectomy and appendectomy. ALLERGIES: ASPIRIN, IODINE, PENICILLIN, AND SULFA. FAMILY HISTORY: Noncontributory. SOCIAL HISTORY: The patient lives alone, but is closely followed by a home health aide and her son. She denies any smoking history, alcohol use, or illicit drug abuse. REVIEW OF SYSTEMS: A 14-point review of systems is negative except as per HPI. PHYSICAL EXAMINATION VITAL SIGNS: Temperature 99.9, pulse 70, blood pressure 131/90, respiratory rate 18 and oxygen saturation 100% on room air. HEENT: PERRL. EOMI. No scleral icterus. No conjunctival pallor. Abrasion to right sabianism and chin. NECK: Supple with full range of motion. No JVD. No bruits. LUNGS: Clear to auscultation. CARDIOVASCULAR: Regular rate and rhythm. Normal S1 and S2. ABDOMEN: Normoactive bowel sounds, soft, nontender, and nondistended. EXTREMITIES: No edema. NEUROLOGIC: Awake, alert, and oriented x3. No focal motor deficits. LABORATORY DATA: Morning labs are pending. ASSESSMENT: The patient is an 87 year old woman with hypertension and dementia who is brought to the [facility] Emergency Department after being found down at home by her home health aide and who was initially admitted to the telemetry beltrán for management of NSTEMI and rhabdomyolysis who was subsequently transferred to the TCU for continued PT. PLAN: 1. NSTEMI. Input from Dr. Jolley noted and appreciated. Continue with medical therapy consisting of Lipitor 40 mg p.o. daily and Metoprolol 25 mg p.o. b.i.d. The patient has a reported aspirin allergy, thus we will hold aspirin therapy. 2. AFib, new onset. The patient remains rate controlled. Continue Lopressor 25 mg p.o. b.i.d. Despite her CHADS2 score we will defer anticoagulation given her propensity for falls and due to her aspirin allergy we cannot place her on monotherapy with ASA. 3. Rhabdomyolysis, resolved. 4. Leukocytosis, resolving. 5. Hypertension. Continue Lopressor 25 mg p.o. b.i.d. 6. Dementia. The patient remains at her baseline mental status. Continue risperidone 0.5 mg p.o. b.i.d. 7. Prophylaxis. GI prophylaxis not indicated as the patient is eating. Continue with SCDs for DVT prophylaxis. CODE STATUS: Full code. Barney James MD MTDD
[2017-08-13 07:16] LABS: BASO # 0.08 K/mm3 (0.0-2.0); BASO % 0.9 % (0.0-3.0); EOS # 0.4 (0.0-0.7); EOS % 4.1 % (1.5-5.0); GRAN # 4.89 (1.4-6.5); GRAN % 57.1 % (50.0-68.0); HEMATOCRIT 34.9 % (36.0-48.0); LYMPH # 2.2 (1.2-3.4); LYMPH % 25.4 % (22.0-35.0); MEAN CELL VOLUME 87.3 fl (80.0-105.0); MEAN CORPUSCULAR HEMOGLOBIN 27.3 pg (25.0-35.0); MEAN CORPUSCULAR HGB CONC 31.2 g/dl (31.0-37.0); MEAN PLATELET VOLUME 9.3 fl (7.0-11.0); MONO # 1.1 (0.1-0.6); MONO % 12.5 % (1.0-6.0); RED CELL DISTRIBUTION WIDTH 14.3 % (11.5-14.5); WHITE BLOOD COUNT 8.6 10^3/ul (4.5-11.0)
[2017-08-13 08:05] LABS: ALB/GLOB RATIO 1.2 (1.1-1.8); ALKALINE PHOSPHATASE 46 U/L (38-126); ALT/SGPT 33 U/L (7-56); AST/SGOT 33 U/L (14-36); BILIRUBIN,TOTAL 0.3 mg/dL (0.2-1.3); BLOOD UREA NITROGEN 18 mg/dL (7-21); CALCIUM 8.8 mg/dL (8.4-10.5); CARBON DIOXIDE 23 mmol/L (21-33); CHLORIDE 109 mmol/L (98-107); GFR AFRICAN-AMERICAN > 60; GLUCOSE,RANDOM 82 mg/dL (70-110); MAGNESIUM 1.8 mg/dL (1.7-2.2); POTASSIUM 3.7 mmol/L (3.6-5.0); SODIUM 138 mmol/L (132-148); TOTAL PROTEIN 5.6 g/dL (5.8-8.3)
--- NOTE | 2017-08-13 09:16 | CON ---
DATE: 08/12/2017 CONSULTING SERVICE: Cardiology. COVERING PHYSICIAN: Henrique Jolley MD REASON FOR CONSULTATION: Coronary artery disease, continuation of current Transitional Care Unit. BRIEF CLINICAL HISTORY: This is an 87-year-old female with history of dementia and hypertension with no medication found to be on the floor by the caregiver, the patient was brought here, found to be rhabdomyolysis with [id number] myocardial infarction after having the syncopal episode. The patient was treated medically. Now, the patient is transferred to the Transitional Care for the continued care. The patient denies any chest pain, shortness of breath, or any palpitation. PAST MEDICAL HISTORY: Significant for anxiety disorder. No definite cardiac history except this episode. PAST SURGICAL HISTORY: Significant for appendectomy and cholecystectomy way back in the past. ALLERGIES: THE PATIENT HAS ALLERGY TO ASPIRIN. SOCIAL HISTORY: Denies smoking. Denies any history of alcohol abuse. CARDIAC STUDIES: Recent cardiac workup as follows: The patient had echocardiography on 08/10/2017 that showed ejection fraction of 55% with mild aortic stenosis, [id number] mitral regurgitation, moderate tricuspid regurgitation, RV systolic pressure of 42, and trace pericardial effusion. REVIEW OF SYSTEMS: As per HPI. PHYSICAL EXAMINATION: As follows: VITAL SIGNS: Temperature is afebrile, heart rate is 87, and blood pressure is 126/ . HEENT: PERRLA. Intact. NECK: Supple. No carotid bruit or thyromegaly. CHEST: Clear to auscultation. HEART: S1 and S2, regular. ABDOMEN: Soft. EXTREMITIES: Clubbing and cyanosis negative. LABORATORY DATA: WBC of 9.4, hemoglobin of 10, hematocrit of 32.1, and platelet count of 294. Chemistries showed sodium of 139, potassium of 3.7, chloride of 113, carbon dioxide of 22, anion gap of 8, BUN of 18, and creatinine of 1.0. DIAGNOSTIC DATA: EKG showed atrial fibrillation with rapid ventricular response, and nonspecific ST-T changes. IMPRESSION: Status post fall, status post rhabdomyolysis, status post possible questionable [id number] myocardial infarction, anxiety disorder, coronary artery disease, status post fall. RECOMMENDATIONS: Given these findings, the patient decided to be treated medically. The patient is now in Transitional Care Unit for continued care. The patient had most recent echocardiography done on 08/10/2017 that showed ejection fraction of 55%, aortic sclerosis, mild aortic stenosis, [id number] mitral regurgitation, moderate tricuspid regurgitation, right ventricular systolic pressure of 42. High risk of fall, the patient on anticoagulation. Now, continue beta julia, we will put low dose of baby aspirin and transfer care tomorrow to Dr. Henrique Jolley. Further recommendation as per hospital course. We will repeat the blood workup CBC, CMP, and calcium and transfer her care tomorrow to Dr. Jolley. Lionel Anderson MD
--- NOTE | 2017-08-13 12:41 | PN ---
SUBJECTIVE: The patient was seen and examined at bedside on the TCU. No acute events overnight. She remains afebrile and hemodynamically stable. She is actively participating with PT and is noted to demonstrate gradual improvement. Overall she feels well and offers no complaints. OBJECTIVE: VITAL SIGNS: Temperature is 98.2, pulse 85, blood pressure is 141/68, respiratory rate is 20, and oxygen saturation is 97% on room air. GENERAL: No apparent distress. HEENT: PERRL. EOMI. No scleral icterus. No conjunctival pallor. Abrasion to right baptist and chin, which is healing. NECK: Supple with full range of motion. No JVD. No bruits. LUNGS: Clear to auscultation. CARDIOVASCULAR: Regular rate and rhythm. Normal S1 and S2. ABDOMEN: Normoactive bowel sounds. Soft, nontender, and nondistended. EXTREMITIES: No edema. NEUROLOGIC: Awake, alert, and oriented x3. No focal motor deficits. LABORATORY DATA: CBC reviewed and unremarkable. CMP reviewed and unremarkable. ASSESSMENT: The patient is an 87 year old woman with hypertension and dementia who was brought to [facility] ED after being found down at home by her home health aide and who was initially admitted to the telemetry beltrán for management of NSTEMI and rhabdomyolysis who was subsequently transferred to TCU for continued PT. PLAN: 1. NSTEMI. Input from Dr. Jolley noted and appreciated. Continue medical therapy consisting of Lipitor 40 mg p.o. daily and Metoprolol 25 mg p.o. b.i.d. The patient has a reported aspirin allergy thus we will withhold aspirin therapy. 2. AFib, new onset. The patient remains rate controlled and in normal sinus rhythm. Continue Lopressor 25 mg p.o. b.i.d. Despite her CHADS2 score we will defer anticoagulation given her history of falls and we will withhold aspirin therapy given her reported allergy. 3. Hypertension. Continue Lopressor 25 mg p.o. b.i.d. 4. Dementia. The patient remains at her baseline mental status. Continue Risperidone 0.5 mg p.o. b.i.d. 5. Rhabdomyolysis, resolved. 6. Leukocytosis, resolved. 7. Prophylaxis. GI prophylaxis is not indicated as the patient is eating. Continue with SCDs for DVT prophylaxis. CODE STATUS: Full code. Barney James MD [facility] # [id number] VANDANA
[2017-08-14 07:11] LABS: BASO # 0.06 K/mm3 (0.0-2.0); BASO % 0.7 % (0.0-3.0); EOS # 0.4 (0.0-0.7); EOS % 4.2 % (1.5-5.0); GRAN # 5.09 (1.4-6.5); GRAN % 56.4 % (50.0-68.0); HEMATOCRIT 32.8 % (36.0-48.0); LYMPH # 2.4 (1.2-3.4); MEAN CELL VOLUME 86.3 fl (80.0-105.0); MEAN CORPUSCULAR HEMOGLOBIN 27.1 pg (25.0-35.0); MEAN CORPUSCULAR HGB CONC 31.4 g/dl (31.0-37.0); MEAN PLATELET VOLUME 8.8 fl (7.0-11.0); MONO # 1.1 (0.1-0.6); MONO % 11.7 % (1.0-6.0); RED CELL DISTRIBUTION WIDTH 14.3 % (11.5-14.5)
[2017-08-14 07:50] LABS: SODIUM 139 mmol/L (132-148)
[2017-08-14 07:53] LABS: ALB/GLOB RATIO 1.1 (1.1-1.8); ALKALINE PHOSPHATASE 50 U/L (38-126); ALT/SGPT 32 U/L (7-56); AST/SGOT 29 U/L (14-36); BILIRUBIN,TOTAL 0.4 mg/dL (0.2-1.3); BLOOD UREA NITROGEN 18 mg/dL (7-21); CARBON DIOXIDE 25 mmol/L (21-33); CHLORIDE 107 mmol/L (98-107); GFR AFRICAN-AMERICAN > 60; GLUCOSE,RANDOM 90 mg/dL (70-110); POTASSIUM 4.1 mmol/L (3.6-5.0); TOTAL PROTEIN 5.5 g/dL (5.8-8.3)
--- NOTE | 2017-08-14 09:32 | PN ---
SUBJECTIVE: The patient was seen and examined at bedside on the TCU. No acute events overnight. She remains afebrile and hemodynamically stable. She is participating in PT and is eager to be discharged to home and offers no complaints. OBJECTIVE: VITAL SIGNS: Temperature of 98.4, pulse of 79, blood pressure of 132/79, respiratory rate of 20, and oxygen saturation of 95% on room air. GENERAL: Frail elderly woman appearing her stated age, lying in bed in no apparent distress. HEENT: PERRL and EOMI. No scleral icterus. No conjunctival pallor. Abrasion to right judaism and chin (healing). NECK: Supple with full range of motion. No JVD. No bruits. LUNGS: Clear to auscultation. CARDIOVASCULAR: Regular rate and rhythm. Normal S1 and S2. ABDOMEN: Normoactive bowel sounds. Soft, nontender and nondistended. EXTREMITIES: No edema. NEUROLOGIC: Awake, alert and oriented x 3. No focal motor deficits. LABORATORY DATA: WBC of 9, hemoglobin of 10, hematocrit of 33, and platelets of 322. Chemistry reviewed and unremarkable. ASSESSMENT: The patient is an 87 year old woman with hypertension and dementia who was brought to the [facility] ED after being found down at home by her home health aide and who was initially admitted to the telemetry beltrán for management of NSTEMI and rhabdomyolysis and who was subsequently transferred to the TCU for continued PT. PLAN: 1. NSTEMI. Input from Dr. Jolley noted and appreciated. Continue medical therapy consisting of Lipitor 40 mg p.o. daily and Metoprolol 25 mg p.o. b.i.d. The patient has a reported aspirin allergy thus we will withhold aspirin therapy. 2. Paroxysmal AFib, new onset. The patient remains rate controlled and in normal sinus rhythm. Continue Lopressor 25 mg p.o. b.i.d. Despite her CHADS2 score we will defer anticoagulation given her history of falls and we will withhold aspirin therapy given her reported allergy. 3. Hypertension. Continue Lopressor 25 mg p.o. b.i.d. 4. Dementia. Continue risperidone 0.5 mg p.o. b.i.d. 5. Rhabdomyolysis, resolved. 6. Leukocytosis, resolved. 7. Prophylaxis. GI prophylaxis not indicated as the patient is eating. Continue with SCDs for DVT prophylaxis. CODE STATUS: Full code. Barney James MD MTDHugo
--- NOTE | 2017-08-14 13:58 | PN ---
DATE: 08/14/2017 CARDIOLOGY FOLLOWUP The patient is in the TCU, awake, alert, complaining of dry eyes. PHYSICAL EXAMINATION: VITAL SIGNS: Blood pressure is 132/80. The heart rate is in the 70s. NECK: Negative JVD. LUNGS: Without rales. HEART: S1, S2. EXTREMITIES: Without edema. LABORATORY DATA: Hemoglobin is 10.3. Chemistries: BUN and creatinine are unremarkable. IMPRESSION: 1. Status post non-ST elevation myocardial infarction. 2. Coronary artery disease. 3. Status post fall. 4. Recovering from rhabdomyolysis. PLAN: Given these findings, the patient is hemodynamically stable on medical therapy, which includes aspirin, atorvastatin and beta-blockers. We will order eyedrops for the patient. Henrique Jolley MD
[2017-08-14] MEDS: Lubricant Eye Drops UD OU SCH ×2 (14:00→17:25)
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
[2017-08-15 07:07] LABS: BASO # 0.09 K/mm3 (0.0-2.0); BASO % 0.9 % (0.0-3.0); EOS # 0.4 (0.0-0.7); GRAN # 5.39 (1.4-6.5); HEMATOCRIT 32.3 % (36.0-48.0); LYMPH # 2.6 (1.2-3.4); LYMPH % 26.5 % (22.0-35.0); MEAN CELL VOLUME 87.3 fl (80.0-105.0); MEAN CORPUSCULAR HEMOGLOBIN 27.6 pg (25.0-35.0); MEAN CORPUSCULAR HGB CONC 31.6 g/dl (31.0-37.0); MEAN PLATELET VOLUME 8.5 fl (7.0-11.0); MONO # 1.2 (0.1-0.6); MONO % 12.6 % (1.0-6.0); RED CELL DISTRIBUTION WIDTH 14.3 % (11.5-14.5); WHITE BLOOD COUNT 9.6 10^3/ul (4.5-11.0)
[2017-08-15 07:19] LABS: ALB/GLOB RATIO 1.1 (1.1-1.8); ALKALINE PHOSPHATASE 52 U/L (38-126); ALT/SGPT 39 U/L (7-56); AST/SGOT 32 U/L (14-36); BILIRUBIN,TOTAL 0.3 mg/dL (0.2-1.3); BLOOD UREA NITROGEN 16 mg/dL (7-21); CALCIUM 8.8 mg/dL (8.4-10.5); CARBON DIOXIDE 26 mmol/L (21-33); CHLORIDE 108 mmol/L (98-107); GFR AFRICAN-AMERICAN > 60; GLUCOSE,RANDOM 85 mg/dL (70-110); SODIUM 141 mmol/L (132-148); TOTAL PROTEIN 5.7 g/dL (5.8-8.3)
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
[2017-08-15] MEDS: Lubricant Eye Drops UD OU SCH ×3 (10:02→17:16)
--- NOTE | 2017-08-15 13:14 | PN ---
SUBJECTIVE: The patient was seen and examined at bedside on the TCU. No acute events overnight. She remains afebrile and hemodynamically stable and continues to report improvement in her functional status. She is actively participating in physical therapy and is eagerly anticipating discharge to home. PHYSICAL EXAMINATION: VITAL SIGNS: Temperature 98.1, pulse 70, blood pressure 132/79, respiratory rate 16, oxygen saturation 97% on room air. GENERAL: No apparent distress. HEENT: PERRL, EOMI. No scleral icterus. No conjunctival pallor. NECK: No JVD. No bruits. LUNGS: Clear to auscultation. CARDIOVASCULAR: Regular rate and rhythm. Normal S1 and S2. ABDOMEN: Normoactive bowel sounds. Soft, nontender and nondistended. EXTREMITIES: No edema. NEUROLOGIC: Awake, alert and oriented x 3. No focal motor deficits. LABORATORY DATA: WBC 9.6, hemoglobin 10, hematocrit 32, platelets 335. Chemistry reviewed and unremarkable. ASSESSMENT: The patient is an 87 year old woman with hypertension and dementia who was brought to [facility] ED after being found down at home by her home health aide and who was initially admitted to the telemetry [facility] for management of NSTEMI and rhabdomyolysis and who was subsequently transferred to the TCU for continued physical therapy. PLAN: 1. NSTEMI. Input from Dr. Jolley noted and greatly appreciated. Continue Lipitor 20 mg p.o. daily and Metoprolol 25 mg p.o. b.i.d. The patient has a reported aspirin allergy thus we will withhold aspirin therapy. 2. Paroxysmal AFib, new onset. The patient remains rate controlled and in normal sinus rhythm. Continue Lopressor 25 mg p.o. b.i.d. Despite her CHADS2 score we will defer anticoagulation given her history of falls and withhold aspirin therapy given her reported allergy. 3. Hypertension. Continue Lopressor 25 mg p.o. b.i.d. 4. Dementia. Continue risperidone 0.5 mg p.o. b.i.d. 5. Rhabdomyolysis, resolved. 6. Prophylaxis. GI prophylaxis is not indicated as the patient is eating. Continue with SCDs for DVT prophylaxis. CODE STATUS: Full code. Barney James MD [facility] # [id number] [facility]
--- NOTE | 2017-08-15 20:10 | PN ---
DATE: 08/15/2017 CARDIOLOGY FOLLOWUP SUBJECTIVE: The patient is in the TCU without chest pain. OBJECTIVE: VITAL SIGNS: Blood pressure 150/83, the heart rate in the 70s. NECK: Negative JVD. LUNGS: Without rales. HEART: Reveals S1, S2. EXTREMITIES: Without edema. LABORATORY DATA: Hemoglobin is 10.2. Chemistries, BUN and creatinine are unremarkable. IMPRESSION: 1. Status post non-ST elevation myocardial infarction. 2. Coronary artery disease. 3. History of fall. 4. Status post rhabdomyolysis. Given these findings, the patient is adequately treated with medical therapy with aspirin, metoprolol, and statin therapy. Henrique Jolley MD
[2017-08-16 07:27] LABS: BASO # 0.09 K/mm3 (0.0-2.0); EOS # 0.4 (0.0-0.7); EOS % 3.8 % (1.5-5.0); GRAN # 4.62 (1.4-6.5); GRAN % 48.9 % (50.0-68.0); HEMATOCRIT 33.3 % (36.0-48.0); LYMPH # 3.3 (1.2-3.4); LYMPH % 34.7 % (22.0-35.0); MEAN CELL VOLUME 86.7 fl (80.0-105.0); MEAN CORPUSCULAR HEMOGLOBIN 26.8 pg (25.0-35.0); MEAN CORPUSCULAR HGB CONC 30.9 g/dl (31.0-37.0); MEAN PLATELET VOLUME 8.6 fl (7.0-11.0); MONO # 1.1 (0.1-0.6); MONO % 11.6 % (1.0-6.0); RED CELL DISTRIBUTION WIDTH 14.2 % (11.5-14.5); WHITE BLOOD COUNT 9.5 10^3/ul (4.5-11.0)
[2017-08-16 07:52] LABS: ALB/GLOB RATIO 1.1 (1.1-1.8); ALKALINE PHOSPHATASE 59 U/L (38-126); ALT/SGPT 37 U/L (7-56); AST/SGOT 30 U/L (14-36); BILIRUBIN,TOTAL 0.4 mg/dL (0.2-1.3); BLOOD UREA NITROGEN 17 mg/dL (7-21); CALCIUM 9.4 mg/dL (8.4-10.5); CARBON DIOXIDE 28 mmol/L (21-33); CHLORIDE 107 mmol/L (98-107); GFR AFRICAN-AMERICAN > 60; GLUCOSE,RANDOM 89 mg/dL (70-110); SODIUM 140 mmol/L (132-148); TOTAL PROTEIN 6.1 g/dL (5.8-8.3)
[2017-08-16] MEDS: Lubricant Eye Drops UD OU SCH ×3 (09:15→17:56)
--- NOTE | 2017-08-16 09:53 | PN ---
SUBJECTIVE: The patient was seen and examined at bedside on the TCU. No acute events overnight. She remains afebrile and hemodynamically stable. She is participating in PT and demonstrating gradual improvement in her functional status and is looking forward to discharged to home. OBJECTIVE: VITAL SIGNS: Temperature 99.2, pulse 80, blood pressure 135/83, respiratory rate 16, and oxygen saturation 97% on room air. GENERAL: No apparent distress. HEENT: PERRL, EOMI. No scleral icterus. No conjunctival pallor. NECK: No JVD. No bruits. LUNGS: Clear to auscultation. CARDIOVASCULAR: Regular rate and rhythm. Normal S1 and S2. ABDOMEN: Normoactive bowel sounds. Soft, nontender, and nondistended. EXTREMITIES: No edema. NEUROLOGIC: Awake, alert, and oriented x 3. No focal motor deficits. LABORATORY DATA: WBC 9.5, hemoglobin 10, hematocrit 33, and platelets 340. Chemistry reviewed and unremarkable. ASSESSMENT: The patient is an 87 year old woman with hypertension and dementia who was brought to [facility] ED after being found down by her home health aide and was initially admitted to the telemetry [facility] for management of NSTEMI and rhabdomyolysis and was subsequently transferred to the TCU for continued physical therapy. PLAN: 1. NSTEMI: Input from Dr. Jolley noted and appreciated. Continue Lipitor 20 mg p.o. daily and Metoprolol 25 mg p.o. b.i.d. The patient has a reported aspirin allergy thus we will withhold aspirin therapy. 2. Paroxysmal AFib, new onset: The patient remains rate controlled and in normal sinus rhythm. Continue Lopressor 25 mg p.o. b.i.d. Despite her CHADS2 score, we will defer anticoagulation given her history of falls and withhold aspirin therapy given her reported allergy. 3. Hypertension: Continue Lopressor 25 mg p.o. b.i.d. 4. Dementia: Continue risperidone 0.5 mg p.o. b.i.d. 5. Rhabdomyolysis, resolved. 6. Prophylaxis: GI prophylaxis is not indicated as the patient is eating. Continue with SCDs for DVT prophylaxis. CODE STATUS: Full code. Barney James MD [facility]
--- NOTE | 2017-08-16 14:39 | PN ---
CARDIOLOGY FOLLOWUP DATE OF SERVICE: 08/16/2017 SUBJECTIVE: The patient is in the TCU, in her usual cantankerous state. She denies shortness of breath, denies chest pain. OBJECTIVE: VITAL SIGNS: On physical exam, blood pressure is 127/65, the heart rate is in the 70s. NECK: Negative JVD. LUNGS: Without rales. HEART: With S1, S2. EXTREMITIES: Without edema. LABORATORY DATA: Hemoglobin is 10.3. Chemistries, BUN and creatinine are unremarkable. IMPRESSION: 1. Status post non-ST segment elevation myocardial infarction. 2. Coronary artery disease. 3. Status post rhabdomyolysis. 4. History of a fall. PLAN: The patient is doing well on her current medications. We will continue physical therapy in the TCU. Henrique Jolley MD
[2017-08-17] MEDS: Lubricant Eye Drops UD OU SCH ×3 (09:58→18:59)
--- NOTE | 2017-08-17 12:23 | PN ---
DATE: LOCATION: The patient is in TCU, room number 319, bed 1. SUBJECTIVE: She has no complaints and there have been no acute events over night. PHYSICAL EXAMINATION: HEENT: Unremarkable. NECK: Supple with full range of motion. No bruits. LUNGS: Clear bilaterally. HEART: Regular rate and rhythm. ABDOMEN: Benign. NEUROLOGIC: There are no focal motor deficits, although the patient does have periods of confusion. CURRENT DIAGNOSES: 1. Altered mental status. 2. Delirium. 3. Abdominal distention. 4. Foot pain. PLAN: We will continue the patient on physical therapy. Rolan James MD
[2017-08-18] MEDS: Lubricant Eye Drops UD OU SCH ×4 (08:53→18:00)
--- NOTE | 2017-08-18 09:48 | PN ---
SUBJECTIVE: The patient was seen and examined at bedside on the TCU. No acute events overnight. She remains afebrile and hemodynamically stable. She is excellent with physical therapy and is eager for discharge to home. OBJECTIVE: VITAL SIGNS: Temperature 97.8, pulse 68, blood pressure 143/88, respiratory rate 20 and oxygen saturation of 94% on room air. GENERAL: No apparent distress. HEENT: PERRL and EOMI. No scleral icterus. No conjunctival pallor. NECK: No JVD. LUNGS: Clear to auscultation. CARDIOVASCULAR: Regular rate and rhythm. Normal S1 and S2. ABDOMEN: Normoactive bowel sounds. Soft, nontender and nondistended. EXTREMITIES: No edema. NEUROLOGIC: Awake, alert and oriented x3. No focal motor deficits. LABORATORY DATA: No new labs. ASSESSMENT: The patient is an 87-year-old woman with hypertension and dementia who was brought to [facility], Emergency Department after being found down by her home health aide and who was initially admitted to the Telemetry [facility] for management of ild-BT-plbgnonls myocardial infarction and rhabdomyolysis and was subsequently transferred to the Transitional Care Unit for continue physical therapy. PLAN: 1. NSTEMI: Input from Dr. Jolley noted and appreciated. Continue Lipitor 20 mg p.o. daily and Metoprolol 25 mg p.o. b.i.d. The patient has a reported aspirin allergy thus we will withhold aspirin therapy. 2. Paroxysmal AFib, new onset: The patient remains rate controlled and in normal sinus rhythm. Continue Metoprolol 25 mg p.o. b.i.d. Despite her CHADS2 score, we will defer anticoagulation given her history of falls and withhold aspirin therapy given her reported allergy. 3. Hypertension: Continue Lopressor 25 mg p.o. b.i.d. 4. Dementia: Continue risperidone 0.5 mg p.o. b.i.d. 5. Rhabdomyolysis, resolved. 6. Anxiety disorder: Continue Xanax 0.25 mg p.o. b.i.d. as needed. 7. Prophylaxis: GI prophylaxis is not indicated as the patient is eating. Continue with SCDs for DVT prophylaxis. CODE STATUS: Full code. Barney James MD [facility]
[2017-08-19 06:11] VITALS: RESP 18; TEMP 97.7
[2017-08-19 06:12] VITALS: O2SAT 95
[2017-08-19] MEDS: Lubricant Eye Drops UD OU SCH (08:00)
[2017-08-19 09:23] VITALS: BP 123/64; PULSE 62
--- NOTE | 2017-08-21 16:23 | DS ---
ADMITTING DIAGNOSIS: NSTEMI, rhabdomyolysis. DISCHARGE DIAGNOSIS: NSTEMI, rhabdomyolysis (resolved). SECONDARY DIAGNOSIS: Paroxysmal atrial fibrillation (new onset), hypertension, dementia. CONSULTATIONS: Dr. Radha Melendez (Psychiatry), Dr. Jolley (Cardiology). HISTORY OF PRESENT ILLNESS: The patient is an 87 year old woman with a past medical history of dementia, anxiety disorder and hypertension who was brought to the [facility] ED by EMS after being found down on the ground at home by her home health aide. The patient was initially admitted to the telemetry [facility] for management of NSTEMI and rhabdomyolysis. After a cardiac workup with Dr. Jolley and aggressive IV fluid hydration she recovered from her acute issues. Given her deconditioned state and recent fall arrangements were made for transfer to the TCU for continued physical therapy. HOSPITAL COURSE: Upon transfer to the TCU the patient was noted to actively participate with physical therapy and demonstrated a gradual improvement during her TCU stay. Her overall course was uncomplicated and there were no acute issues and by hospital day #7 she was deemed stable for discharge to home. CONDITION: Fair, improved. DISPOSITION: Home. DISCHARGE MEDICATIONS: Metoprolol 25 mg p.o. b.i.d., Lipitor 40 mg p.o. daily, Risperidone 0.5 mg p.o. b.i.d. and Xanax 0.25 mg p.o. b.i.d. DISCHARGE INSTRUCTIONS: The patient was advised to use her assistive walking device as needed so as to minimize the risk of recurrent falls. The patient was also advised that if she has any development of chest pain, dyspnea, or malaise to notify her PMD or to present to the nearest ED immediately. FOLLOW: The patient will follow up with her PMD within 1 week of discharge. The patient to follow up with Dr. Jolley as scheduled. Barney James MD [facility]
== END 2017-08-19 12:03 | disposition home or self-care (01) | DRG 281 ==
LOC: TRCU 16:02
PROVIDERS: ADMIT Student in an Organized Health Care Education/Training Program; ATTEND Student in an Organized Health Care Education/Training Program
DX: I21.4 Non-ST elevation (NSTEMI) myocardial infarction (principal); M62.82 Rhabdomyolysis; I10 Essential (primary) hypertension; I08.3 Combined rheumatic disorders of mitral, aortic and tricuspid valves; I48.0 Paroxysmal atrial fibrillation; F03.90 Unspecified dementia, unspecified severity, without behavioral disturbance, psychotic disturbance, mood disturbance, and anxiety; I25.10 Atherosclerotic heart disease of native coronary artery without angina pectoris; F41.9 Anxiety disorder, unspecified; F32.9 Major depressive disorder, single episode, unspecified; M79.673 Pain in unspecified foot; D72.829 Elevated white blood cell count, unspecified; Z88.6 Allergy status to analgesic agent

== ENCOUNTER 2017-08-24 09:42 | Inpatient (IN) | payer MEDICARE ==
[2017-08-24 10:06] VITALS: BMI 29.2
[2017-08-24] MEDS ORDERED: Morphine 2 mg/ml ISec IVP STA (10:31)
[2017-08-24] MEDS ORDERED: Sodium Chloride 0.9% 500 ML IV STA (10:31)
[2017-08-24] MEDS ORDERED: Tetanus Immune Globulin 250 Units Inj IM ONE (10:36)
--- NOTE | 2017-08-24 10:39 | ED PDOC ---
Arrival/HPI - General Chief Complaint: Trauma Time Seen by Provider: 08/24/17 09:49 Historian: Patient, Caregiver - History of Present Illness Narrative History of Present Illness (Text): 08/24/17 10:25 Rachael Perez is an 87 year old female, whose past medical history includes CHF , hypertension, and dementia, who is brought in to the emergency department s/p mechanical fall since last night. Patient reports last night she was trying to go use the bathroom when she fell from the bed. According to her surgical sales representative, she states she found patient on the flood at 8:45AM laying on one side with a pillow underneath and no blood was observed. She also notes 2 weeks ago patient was admitted for MT and d/c 6 days ago. Patient is currently complaining of back pain and denies and head trauma or loss of consciousness. Patient denies chest pain, abdominal pain, nausea, vomiting, diarrhea, shortness of breath, fever, or other complaints. Time/Duration: 4-6 hours Symptom Onset: Sudden Symptom Course: Unchanged Activities at Onset: Light Context: Home, Slipped Past Medical History - Provider Review Nursing Documentation Reviewed: Yes - Travel History Have you recently traveled outside [place] w/in the past 3 mons?: No - Infectious Disease Hx of Infectious Diseases: None - Tetanus Immunization Tetanus Immunization: Unknown - Cardiac Hx Congestive Heart Failure: Yes Hx Hypertension: Yes Other/Comment: NSTEMI last visit - Pulmonary Hx Respiratory Disorders: No - Neurological Hx Neurological Disorder: Yes Hx Dementia: Yes - HEENT Hx HEENT Disorder: Yes ([place], wears eyeglasses) Hx Cataracts: Yes - Renal Hx Renal Disorder: Yes (KIDNEY STONES) - Endocrine/Metabolic Hx Endocrine Disorders: No - Hematological/Oncological Hx Blood Disorders: No - Integumentary Hx Dermatological Disorder: No - Musculoskeletal/Rheumatological Hx Rheumatoid Arthritis: Yes - Gastrointestinal Hx Gastrointestinal Disorders: Yes (constipation,appendectomy,cholecystectoomy, colon polyps,diverticulitis) - Genitourinary/Gynecological Hx Genitourinary Disorders: Yes (hesitancy,retention,) Hx Reproductive Disorders: No - Psychiatric Hx Psychophysiologic Disorder: Yes Hx Anxiety: Yes Hx Depression: Yes Hx Emotional Abuse: No Hx Physical Abuse: No Hx Substance Use: No Other/Comment: Early onset dementia - Surgical History Hx Appendectomy: Yes Hx Cholecystectomy: Yes Other/Comment: colon polyps - Anesthesia Hx Anesthesia: Yes Hx Anesthesia Reactions: No - Suicidal Assessment Feels Threatened In Home Enviroment: No Family/Social History - Physician Review Nursing Documentation Reviewed: Yes Family/Social History: Unknown Family HX Smoking Status: Former Smoker Hx Alcohol Use: No Hx Substance Use: No Hx Substance Use Treatment: No Allergies/Home Meds Allergies/Adverse Reactions: Allergies aspirin Allergy (Verified 08/24/17 09:49) RASH iodine Allergy (Verified 08/24/17 09:49) RASH Penicillins Allergy (Verified 08/24/17 09:49) RASH Sulfa (Sulfonamide Antibiotics) Allergy (Verified 08/24/17 09:49) RASH Home Medications: Home Meds Medication Instructions Recorded Confirmed risperiDONE [RisperDAL Tab] 0.5 mg PO BID 08/08/17 08/24/17 Review of Systems - Review of Systems Constitutional: absent: Fevers Eyes: absent: Vision Changes ENT: absent: Rhinorrhea Respiratory: absent: SOB Cardiovascular: absent: Chest Pain Gastrointestinal: absent: Abdominal Pain, Diarrhea, Nausea, Vomiting Genitourinary Female: absent: Dysuria, Frequency Musculoskeletal: Back Pain Skin: absent: Rash Neurological: absent: Headache, Dizziness, Focal Weakness Endocrine: absent: Diaphoresis, Polydipsia Physical Exam Vital Signs Reviewed: Yes Vital Signs Temp Pulse Resp BP Pulse Ox 08/24/17 15:52 138/75 08/24/17 15:49 73 16 99 08/24/17 15:00 58 L 18 138/71 98 08/24/17 12:28 54 L 18 142/75 98 08/24/17 11:30 48 L 12 144/84 98 08/24/17 11:10 67 18 148/79 99 08/24/17 09:55 97.2 F L 69 18 151/85 H 97 Temperature: Hypothermic Blood Pressure: Hypertensive Pulse: Regular Respiratory Rate: Normal Appearance: Positive for: Well-Appearing, Non-Toxic, Other (uncomfortable, alert /awake, GCS = 15, oriented x 2 (not to date/time), resting in bed) Pain Distress: Other (uncomfortable) Mental Status: No: Alert and Oriented X 3 (alert and oriented X 2 minus date) - Systems Exam Head: Present: Normocephalic, Swelling (periorbital swelling with erythema of superior aspect of right facial abrasion), Abrasion (abrasion on chin ) Pupils: Present: PERRL, Other (no photophobia, sclera anicteic, no nystagmus) Extroacular Muscles: Present: EOMI Conjunctiva: Present: Normal Mouth: Present: Dry, Other (poor dentitions, no drooling/stridor, no exudate/ lesions) Pharnyx: Present: Normal Nose (External): Present: Atraumatic Neck: Present: Normal Range of Motion Respiratory/Chest: Present: Clear to Auscultation, Good Air Exchange. No: Respiratory Distress, Accessory Muscle Use, Wheezes, Rales, Retracting, Rhonchi Cardiovascular: Present: Regular Rate and Rhythm, Normal S1, S2. No: Murmurs Abdomen: Present: Normal Bowel Sounds. No: Tenderness, Distention, Peritoneal Signs, Rebound, Guarding Back: Present: Other (+ diffuse mid thoracic region tenderness; no step off). No: Pain with Leg Raise Upper Extremity: Present: Normal Inspection, Normal ROM, NORMAL PULSES, Erythema (right index dorsum aspect erythema), Capillary Refill < 2s. No: Cyanosis, Edema Lower Extremity: Present: Normal Inspection, NORMAL PULSES, Normal ROM, Neurovascularly Intact, Capillary Refill < 2 s, Other (small abrasion noted on left medial knee). No: Edema, Cyanosis, Tenderness, Deformity Neurological: Present: GCS=15, CN II-XII Intact, Speech Normal, Normal Sensory Function. No: Motor Func Grossly Intact (weakness noted on bilateral feet) Skin: Present: Warm, Dry, Normal Color. No: Rashes Psychiatric: Present: Alert, Normal Insight, Normal Concentration. No: Oriented x 3 (oriented x 2 minus date) Medical Decision Making ED Course and Treatment: 08/24/17 10:56 Impression: 87 year old female with periorbital swelling with erythema of superior aspect of right facial abrasion, small abrasion noted on left medial knee and weakness noted on bilateral feet. Differential Diagnosis included but are not limited to: Plan: -- CT head, -- CT cervical spine, CT lumbar spine, CT throracic spine -- CT macillofacial -- EKG -- Chest X-ray -- Labs -- Right hand x-ray -- bilaterall knee x-ray -- pelvis x-ray -- Urinalysis -- Morphine, Tetanus, Sodium Chloride -- Reassess and disposition Progress Notes: Prior EK08/10/2017 08/24/17 14:[address]: Creator : Henrique Gfof MD FINDINGS: VERTEBRAE: The vertebral bodies are maintained in height. There is no evidence of an acute fracture. There is grade 1 anterolisthesis at C6-7. The atlantoaxial articulation and odontoid process are intact. DISCS/SPINAL CANAL/NEURAL FORAMINA: There is a small midline disc herniation at C2-3. No other disc herniation is appreciated. There is narrowing of the intervertebral disc space at C4-5 with a large posterior bridging osteophyte, consistent with degenerative disc disease. Narrowing is also noted at C5-6. Please note that computed tomography is of limited accuracy in evaluation of cervical intervertebral disc pathology. There is bony neural foraminal stenosis on the right side at C 5-6. There is left bony neural foraminal stenosis at C 3- 4. There is no central spinal stenosis. PARASPINAL SOFT TISSUES: No prevertebral soft tissue swelling. Unremarkable paraspinous soft tissues. OTHER FINDINGS: None. IMPRESSION: No evidence of fracture. Small midline disc herniation at C2-3. Multilevel degenerative disc disease. Grade 1 anterolisthesis at C6-7. 08/24/17 14:[address]: Creator : Chriss Weiss MD COMPARISON: CT head dated 08/08/2017. FINDINGS: HEMORRHAGE: No intracranial hemorrhage. BRAIN: No mass effect or edema. Cerebral atrophy. Chronic microvascular ischemic changes in the periventricular white matter. VENTRICLES: Unremarkable. No hydrocephalus. CALVARIUM: Unremarkable. PARANASAL SINUSES: Unremarkable as visualized. No significant inflammatory changes. MASTOID AIR CELLS: Unremarkable as visualized. No inflammatory changes. OTHER FINDINGS: None. IMPRESSION: No acute intracranial pathology 08/24/17 14:[address]: Creator : Henrique Goff MD FINDINGS: VERTEBRAE: Vertebral bodies maintained in height. No evidence of fracture. Normal alignment maintained.. DISCS/SPINAL CANAL/NEURAL FORAMINA: Within the limits of the CT technique, no disc herniation seen. No central canal or neural foraminal stenosis.. PARASPINAL SOFT TISSUES: Small left pleural effusion noted.. OTHER FINDINGS: Unremarkable. IMPRESSION: No evidence of fracture or dislocation. Incidentally noted small left pleural effusion. 08/24/17 14:25 Knee x-ray: Creator : Chriss Weiss MD COMPARISON: Bilateral knee radiographs dated 08/08/2017. FINDINGS: BONES: Right Knee: No fracture. Left Knee: No fracture. JOINTS: Right Knee: Mild tricompartmental narrowing. Left knee: Mild tricompartmental narrowing. SOFT TISSUES: Right Knee: Normal. Left Knee: Normal. JOINT EFFUSION: Right Knee: None. Left Knee: None. OTHER FINDINGS: None. IMPRESSION: No demonstrated fracture or dislocation. 08/24/17 14:25 Chest X-ray: Creator : Chriss Weiss MD COMPARISON: Chest radiograph dated 08/08/2017 FINDINGS: LUNGS: Stable chronic prominence of the bilateral interstitial markings. PLEURA: No significant pleural effusion identified. No pneumothorax apparent. CARDIOVASCULAR: Atherosclerotic aortic calcifications. Cardiomediastinal silhouette stably enlarged. OSSEOUS STRUCTURES: No significant abnormalities. VISUALIZED UPPER ABDOMEN: Normal. OTHER FINDINGS: None. IMPRESSION: Stable chronic prominence of the bilateral interstitial markings. No focal consolidation or pleural effusion. 08/24/17 14:30 CT Maxillofacial: Creator : Chriss Weiss MD FINDINGS: NASAL BONES: Unremarkable. ORBITS: Unremarkable. PARANASAL SINUSES/ MASTOIDS: Clear. MAXILLA: Unremarkable. MANDIBLE/ TEMPOROMANDIBULAR JOINTS: Unremarkable. SKULL BASE: Unremarkable. TEMPORAL BONES: Middle ears and mastoid grossly unremarkable. OTHER FINDINGS: Degenerative changes. IMPRESSION: No acute fracture. 08/24/17 14:33 pt is doing well currently pt is resting in bed pt/surgical sales representative are made aware of pt's medical results pt's daughter in law is made aware of pt's medical results agrees with admission 08/24/17 15:30 I spoke to Lilichristiano? pt's pcp, made aware of pt's medical results, agrees with admission Reassessment Condition: Unchanged - Critical Care Critical Care Minutes: 45 minutes Critical Care Time: Excluding Proc Time Narrative Critical Care (Text): 08/24/17 15:30 critical care time: 45min, excluding procedure time, excluding time teaching residents/students/mid-level providers; including initial eval/diagnosis, diagnostic interpretation, re-eval, consultations, final disposition - Lab Interpretations Lab Results: 08/24/17 10:50 08/24/17 10:50 Lab Results 08/24/17 10:50: Lactic Acid 1.0 08/24/17 10:50: Sodium 141, Potassium 4.3, Chloride 108 H, Carbon Dioxide 26, Anion Gap 11, BUN 18, Creatinine 0.9, Est GFR ( Amer) > 60, Est GFR (Non- Af Amer) 59, Random Glucose 88, Calcium 9.4, Total Bilirubin 0.4, AST 32, ALT 40 , Alkaline Phosphatase 73, Lactate Dehydrogenase 739 H, Total Creatine Kinase 122, Troponin I 0.03 D, Total Protein 6.7, Albumin 3.7, Globulin 3.0, Albumin/ Globulin Ratio 1.2 08/24/17 10:50: WBC 12.9 H D, RBC 4.31, Hgb 11.8 L, Hct 37.7, MCV 87.5, MCH 27.4 , MCHC 31.3, RDW 14.1, Plt Count 375, MPV 9.0, Gran % 73.1 H, Lymph % (Auto) 16.7 L, [place] % (Auto) 8.7 H, Eos % (Auto) 0.9 L, Baso % (Auto) 0.6, Gran # 9.41 H, Lymph # 2.2, [place] # 1.1 H, Eos # 0.1, Baso # 0.08 elevated LDH I have reviewed the lab results: Yes Interpretation: Abnormal lab values - RAD Interpretation Radiology Orders: 08/24/17 10:32 CERVICAL SPINE W/O CONTRAST [CT] Stat HEAD W/O CONTRAST [CT] Stat LUMBAR SPINE W/O CONTRAST [CT] Stat THORACIC SPINE W/O CONT [CT] Stat PELVIS ONE VIEW [RAD] Stat 08/24/17 10:34 MAXILLOFACIAL W/O CONTRAST [CT] Stat 08/24/17 10:35 CHEST TWO VIEWS (PA/LAT) [RAD] Stat HAND RIGHT 3 VIEWS [RAD] Stat 08/24/17 10:36 KNEES BILATERAL [RAD] Stat chest: WNL per radiology hand/knee xray - negative, per radiology Ceo: Radiologist - EKG Interpretation EKG Interpretation (Text): 08/24/17 15:35 Sinus willard at 55 bpm, LAD, no ectopy, poor baseline, biphasic t noted to V5-6, ABNL EKG; unchanged compare with old ekg 08/201708/24/17 19:06 08/24/17 19:08 Interpreted by ED Physician: Yes Type: 12 lead EKG Comparison: Similar to previous EKG - Medication Orders Current Medication Orders: Discontinued Medications Sodium Chloride (Sodium Chloride 0.9%) 500 mls @ 1,000 mls/hr IV .Q30M STA Stop: 08/24/17 11:00 Last Admin: 08/24/17 11:13 Dose: 1,000 mls/hr eMAR Start Stop Document 08/24/17 11:13 SS (Rec: 08/24/17 11:13 SS [id number]) Intravenous Solution Start Date 08/24/17 Start Time 11:13 End Date 08/24/17 End time 11:43 Total Infusion Time 30 Morphine Sulfate (Morphine) 2 mg IVP STAT STA Stop: 08/24/17 10:32 Last Admin: 08/24/17 11:30 Dose: 2 mg MAR Pain Assessment Document 08/24/17 11:30 SS (Rec: 08/24/17 11:31 SS [id number]) Pain Reassessment Is this a pain reassessment? No Sleep Is patient sleeping during reassessment? No Presence of Pain Presence of Pain Yes Pain Scale Used Pain Scale Used Numeric Location Left, Right or Bilateral Right Pain Location Body Site Back Arm Description Pain Behavior Moaning IVP Administration Document 08/24/17 11:30 SS (Rec: 08/24/17 11:31 SS [id number]) Charges for Administration # of IVP Administrations 1 Tetanus Immune Globulin (Baytet Inj) 250 units IM ONCE ONE Stop: 08/24/17 10:37 Last Admin: 08/24/17 11:31 Dose: Not Given Non-Admin Reason: Patient Refused Comments: Patient states she had a tetnus vaccine in the past. Immunization Registry Document 08/24/17 11:31 SS (Rec: 08/24/17 11:31 SS [id number]) Immunization Registry Consent Date 08/08/17 - Scribe Statement The provider has reviewed the documentation as recorded by the Dariibe Marilee Trinidad Provider Scribe Attestation: All medical record entries made by the Scribe were at my direction and personally dictated by me. I have reviewed the chart and agree that the record accurately reflects my personal performance of the history, physical exam, medical decision making, and the department course for this patient. I have also personally directed, reviewed, and agree with the discharge instructions and disposition. Disposition/Present on Arrival - Present on Arrival Any Indicators Present on Arrival: No History of DVT/PE: No History of Uncontrolled Diabetes: No Urinary Catheter: No History of Decub. Ulcer: No History Surgical Site Infection Following: None - Disposition Have Diagnosis and Disposition been Completed?: Yes Diagnosis: Ambulatory dysfunction, Fall, Facial contusion Disposition: HOSPITALIZED Disposition Time: 14:39 Patient Plan: Admission Patient Problems: Current Active Problems Problem Status Onset Ambulatory dysfunction Acute Fall Acute Facial contusion Acute Condition: STABLE
[2017-08-24 11:07] LABS: BASO # 0.08 K/mm3 (0.0-2.0); BASO % 0.6 % (0.0-3.0); EOS # 0.1 (0.0-0.7); EOS % 0.9 % (1.5-5.0); GRAN # 9.41 (1.4-6.5); GRAN % 73.1 % (50.0-68.0); HEMOGLOBIN 11.8 g/dL (12.0-16.0); LYMPH # 2.2 (1.2-3.4); LYMPH % 16.7 % (22.0-35.0); MEAN CELL VOLUME 87.5 fl (80.0-105.0); MEAN CORPUSCULAR HEMOGLOBIN 27.4 pg (25.0-35.0); MEAN CORPUSCULAR HGB CONC 31.3 g/dl (31.0-37.0); MONO # 1.1 (0.1-0.6); MONO % 8.7 % (1.0-6.0); RBC 4.31 10^6/uL (3.5-6.1); RED CELL DISTRIBUTION WIDTH 14.1 % (11.5-14.5); WHITE BLOOD COUNT 12.9 10^3/ul (4.5-11.0)
[2017-08-24 11:21] LABS: ALB/GLOB RATIO 1.2 (1.1-1.8); ALBUMIN 3.7 g/dL (3.0-4.8); ALT/SGPT 40 U/L (7-56); AST/SGOT 32 U/L (14-36); BLOOD UREA NITROGEN 18 mg/dL (7-21); CALCIUM 9.4 mg/dL (8.4-10.5); GFR AFRICAN-AMERICAN > 60; GFR NON-AFRICAN AMERICAN 59
[2017-08-24 11:26] LABS: TROPONIN I 0.03 ng/mL
--- NOTE | 2017-08-24 13:33 | CT ---
PROCEDURE: CT HEAD WITHOUT CONTRAST. HISTORY: fall, upper back pain, unknown timeframe on the fl COMPARISON: CT head dated 08/08/2017. TECHNIQUE: Axial computed tomography images were obtained through the head/brain without intravenous contrast. Radiation dose: Total exam DLP = 759.4 mGy-cm. This CT exam was performed using one or more of the following dose reduction techniques: Automated exposure control, adjustment of the mA and/or kV according to patient size, and/or use of iterative reconstruction technique. FINDINGS: HEMORRHAGE: No intracranial hemorrhage. BRAIN: No mass effect or edema. Cerebral atrophy. Chronic microvascular ischemic changes in the periventricular white matter. VENTRICLES: Unremarkable. No hydrocephalus. CALVARIUM: Unremarkable. PARANASAL SINUSES: Unremarkable as visualized. No significant inflammatory changes. MASTOID AIR CELLS: Unremarkable as visualized. No inflammatory changes. OTHER FINDINGS: None. IMPRESSION: No acute intracranial pathology.
--- NOTE | 2017-08-24 13:37 | CT ---
PROCEDURE: CT MAXILLOFACIAL BONES WITHOUT CONTRAST HISTORY: fall, right facial swelling COMPARISON: None TECHNIQUE: Contiguous axial CT images of the maxillofacial bones were obtained. Coronal and sagittal reformats were generated. Radiation dose: Total exam DLP = 730.9 mGy-cm. This CT exam was performed using one or more of the following dose reduction techniques: Automated exposure control, adjustment of the mA and/or kV according to patient size, and/or use of iterative reconstruction technique. FINDINGS: NASAL BONES: Unremarkable. ORBITS: Unremarkable. PARANASAL SINUSES/ MASTOIDS: Clear. MAXILLA: Unremarkable. MANDIBLE/ TEMPOROMANDIBULAR JOINTS: Unremarkable. SKULL BASE: Unremarkable. TEMPORAL BONES: Middle ears and mastoid grossly unremarkable. OTHER FINDINGS: Degenerative changes. IMPRESSION: No acute fracture.
--- NOTE | 2017-08-24 14:11 | CT ---
PROCEDURE: CT Cervical Spine without contrast HISTORY: <fall> COMPARISON: None available. TECHNIQUE: Axial computed tomography images were obtained of the cervical spine without the use of intravenous contrast. Coronal and sagittal reformatted images were created and reviewed. Radiation dose: Total exam DLP = 284.47 mGy-cm. This CT exam was performed using one or more of the following dose reduction techniques: Automated exposure control, adjustment of the mA and/or kV according to patient size, and/or use of iterative reconstruction technique. FINDINGS: VERTEBRAE: The vertebral bodies are maintained in height. There is no evidence of an acute fracture. There is grade 1 anterolisthesis at C6-7. The atlantoaxial articulation and odontoid process are intact. DISCS/SPINAL CANAL/NEURAL FORAMINA: There is a small midline disc herniation at C2-3. No other disc herniation is appreciated. There is narrowing of the intervertebral disc space at C4-5 with a large posterior bridging osteophyte, consistent with degenerative disc disease. Narrowing is also noted at C5-6. Please note that computed tomography is of limited accuracy in evaluation of cervical intervertebral disc pathology. There is bony neural foraminal stenosis on the right side at C 5-6. There is left bony neural foraminal stenosis at C 3-4. There is no central spinal stenosis. PARASPINAL SOFT TISSUES: No prevertebral soft tissue swelling. Unremarkable paraspinous soft tissues. OTHER FINDINGS: None. IMPRESSION: No evidence of fracture. Small midline disc herniation at C2-3. Multilevel degenerative disc disease. Grade 1 anterolisthesis at C6-7.
--- NOTE | 2017-08-24 14:15 | CT ---
PROCEDURE: CT Thoracic Spine without contrast HISTORY: fall COMPARISON: None. TECHNIQUE: Axial computed tomography images were obtained of the thoracic spine without intravenous contrast. Coronal and sagittal reformatted images were created and reviewed. Radiation dose: Total exam DLP = 275.23 mGy-cm. This CT exam was performed using one or more of the following dose reduction techniques: Automated exposure control, adjustment of the mA and/or kV according to patient size, and/or use of iterative reconstruction technique. FINDINGS: VERTEBRAE: Vertebral bodies maintained in height. No evidence of fracture. Normal alignment maintained.. DISCS/SPINAL CANAL/NEURAL FORAMINA: Within the limits of the CT technique, no disc herniation seen. No central canal or neural foraminal stenosis.. PARASPINAL SOFT TISSUES: Small left pleural effusion noted.. OTHER FINDINGS: Unremarkable. IMPRESSION: No evidence of fracture or dislocation. Incidentally noted small left pleural effusion.
--- NOTE | 2017-08-24 14:17 | RAD ---
HISTORY: fall COMPARISON: Chest radiograph dated 08/08/2017 TECHNIQUE: Chest PA and lateral FINDINGS: LUNGS: Stable chronic prominence of the bilateral interstitial markings. PLEURA: No significant pleural effusion identified. No pneumothorax apparent. CARDIOVASCULAR: Atherosclerotic aortic calcifications. Cardiomediastinal silhouette stably enlarged. OSSEOUS STRUCTURES: No significant abnormalities. VISUALIZED UPPER ABDOMEN: Normal. OTHER FINDINGS: None. IMPRESSION: Stable chronic prominence of the bilateral interstitial markings. No focal consolidation or pleural effusion.
--- NOTE | 2017-08-24 14:20 | RAD ---
PROCEDURE: Bilateral Knee Radiographs. HISTORY: fall, b/l knee pain, right >> left COMPARISON: Bilateral knee radiographs dated 08/08/2017. FINDINGS: BONES: Right Knee: No fracture. Left Knee: No fracture. JOINTS: Right Knee: Mild tricompartmental narrowing. Left knee: Mild tricompartmental narrowing. SOFT TISSUES: Right Knee: Normal. Left Knee: Normal. JOINT EFFUSION: Right Knee: None. Left Knee: None. OTHER FINDINGS: None. IMPRESSION: No demonstrated fracture or dislocation.
--- NOTE | 2017-08-24 14:22 | RAD ---
PROCEDURE: Right Hand Radiographs. HISTORY: right index finger pain, s/p fall COMPARISON: None. FINDINGS: BONES: Normal. No fracture. JOINTS: Diffusely narrowed, worse in the interphalangeal joints. SOFT TISSUES: Normal. OTHER FINDINGS: None. IMPRESSION: No demonstrated fracture dislocation. Diffuse arthritic changes.
--- NOTE | 2017-08-24 14:22 | CT ---
PROCEDURE: CT Lumbar Spine without contrast HISTORY: fall COMPARISON: None. TECHNIQUE: Axial computed tomography images were obtained of the lumbar spine without the use of intravenous contrast. Coronal and sagittal reformatted images were created and reviewed. Radiation dose: Total exam DLP = 420.29 mGy-cm. This CT exam was performed using one or more of the following dose reduction techniques: Automated exposure control, adjustment of the mA and/or kV according to patient size, and/or use of iterative reconstruction technique. FINDINGS: VERTEBRAE: The vertebral bodies are maintained in height. The transverse processes and posterior elements are intact. There is grade 1 anterolisthesis at L3-4, likely degenerative in origin. There is no spondylolysis. Normal vertebral alignment is maintained elsewhere. DISCS/SPINAL CANAL/NEURAL FORAMINA: L1-2: Partially calcified disc bulge. No focal herniation. No spinal or neural foraminal stenosis. L2-3: Calcified disc bulge. No focal herniation. No spinal or neural foraminal stenosis. There is bilateral degenerative facet arthropathy. L3-4: Diffuse disc bulge. No focal herniation. There is central spinal stenosis. There is no neural foraminal stenosis. There is bilateral degenerative facet arthropathy. L4-5: Diffuse disc bulge. No focal herniation. Mild central spinal stenosis. No neural foraminal stenosis. Bilateral degenerative facet arthropathy with bony hypertrophy. L5-S1: Unremarkable. PARASPINAL SOFT TISSUES: Unremarkable. OTHER FINDINGS: Atrophy of right kidney. Kidney only partially included in this examination. IMPRESSION: No evidence of fracture. Grade 1 anterolisthesis at L 3-4, likely degenerative. Multilevel disc bulge without focal herniation. Central spinal stenosis at L3-4 and L4-5. Incidentally noted right renal atrophy.
--- NOTE | 2017-08-24 14:26 | RAD ---
PROCEDURE: Radiographs of the pelvis. HISTORY: fall COMPARISON: Pelvis radiographs dated 08/08/2017. FINDINGS: BONES: Pelvic Bones: Unremarkable. Hips: Narrowed bilaterally. JOINTS: Sacroiliac Joints: Narrowed. Pubic Symphysis: Narrowed. OTHER FINDINGS: None. IMPRESSION: No demonstrated fracture or dislocation. Bilateral hip degenerative changes.
[2017-08-24 15:25] LABS: PH,URINE 6.5 (4.7-8.0); URINE BILIRUBIN NEGATIVE (NEGATIVE); URINE BLOOD NEGATIVE (NEGATIVE); URINE GLUCOSE (UA) NEGATIVE (NEGATIVE); URINE LEUKOCYTE ESTERASE NEGATIVE Leu/uL (NEGATIVE); URINE NITRATE NEGATIVE (NEGATIVE); URINE PROTEIN NEGATIVE mg/dL (<30 mg/dL); URINE UROBILINOGEN 0.2 E.U./dL (<1 E.U./dL)
[2017-08-24 15:36] LABS: URINE APPEARANCE CLEAR (CLEAR); URINE COLOR YELLOW (YELLOW)
--- NOTE | 2017-08-25 09:13 | CARD ---
APPROVED REPORT EKG Measurement Heart [id number] <Conclusion> Sinus bradycardia STTW changes c/w ischemia Peaked T waves V 2,3 LAD C/W prior ECG 08/10/17: AF is no longer present, STTW changes are increased and T waves are peaked V2,3
--- NOTE | 2017-08-25 19:08 | HP ---
HISTORY OF PRESENT ILLNESS: The patient is an 87-year-old woman with a past medical history of dementia, anxiety disorder, and hypertension, who was recently admitted status post mechanical fall at home and treated for rhabdomyolysis and non-ST elevation [place], who is discharged from TCU on 08/18/2017, who presented to [facility] via EMS after reportedly being found down again at home by her home health aide. The patient states that she was in usual state of health and sustained a mechanical fall with trauma to her right knee when her home health aide returned she saw her on the ground and called 911 and the patient was subsequently brought to [facility] ED for evaluation. Of note, this is the patient's second fall in the past 2 weeks. Upon arrival to the ED, she was noted to be afebrile and hemodynamically stable and multiple imaging studies, which were obtained, were negative for acute fracture or other serious trauma, and she was subsequently [facility] to [facility] continued physical [facility]. PAST MEDICAL HISTORY: As per HPI, also CAD and diverticulosis with prior admissions for diverticulitis. PAST SURGICAL HISTORY: Cholecystectomy and appendectomy. ALLERGIES: ASPIRIN, IODINE, PENICILLIN, AND SULFAS. FAMILY HISTORY: Noncontributory. SOCIAL HISTORY: The patient lives alone, but is closely followed by home health aide and her son. She denies smoking history, alcohol use, or illicit drug abuse. REVIEW OF SYSTEMS: A 14-point review of systems is negative except as per HPI. MEDICATIONS: Metoprolol 25 mg p.o. b.i.d., Lipitor 40 mg p.o. daily, Xanax 0.25 mg p.o. b.i.d. p.r.n. anxiety and risperidone 0.5 mg p.o. b.i.d. PHYSICAL EXAMINATION: VITAL SIGNS: Temperature 98.9, pulse 62, blood pressure 152/70, respiratory rate 18, oxygen saturations 95% on room air. GENERAL: No apparent distress. HEENT: Normocephalic, atraumatic. PERRL. EOMI. No scleral icterus. No conjunctival pallor. NECK: Supple with full range of motion. No JVD. No bruits. LUNGS: Clear to auscultation. CARDIOVASCULAR: Regular rate and rhythm. Normal S1 and S2. ABDOMEN: Normoactive bowel sounds, soft, nontender, and nondistended. EXTREMITIES: No edema. No joint deformities. NEUROLOGIC: Awake, alert, and oriented x3. Moving all extremities. LABORATORY DATA: CBC reviewed and unremarkable. CMP reviewed and unremarkable. ASSESSMENT: The patient is an 87-year-old woman with hypertension, dementia, and anxiety disorder who is recently discharged from [facility] after admission for rhabdomyolysis and non-ST elevation myocardial infarction, who was brought to [facility] ED by EMS after being found down again at home by her home health aide. PLAN: 1. Recurrent falls. We will consult PT for evaluation and recommendations. Given the fact that this is patient's second major fall in the past 2 weeks, we will need to have serious discussion with the patient and her family regarding the need for possible placement as she does not appear to be able to take care of herself at home. 2. Coronary artery disease, status post non-ST elevation myocardial infarction. Continue Lipitor 40 mg p.o. daily. Hold ASA due to allergy. We will hold metoprolol 25 mg p.o. b.i.d. and resume as needed. 3. Hypertension. Blood pressure controlled. Continue to hold metoprolol as above and resume as needed. 4. Dementia. The patient appears to be at her baseline neurologic status. Continue risperidone 0.5 mg p.o. b.i.d. 5. Anxiety disorder. Continue Xanax 0.25 mg p.o. b.i.d. 6. Prophylaxis. GI prophylaxis not indicated as the patient is eating. Continue with SCDs for DVT prophylaxis. CODE STATUS: FULL CODE. Barney James MD MTDHugo
[2017-08-28 08:06] VITALS: BP 163/82; PULSE 70; RESP 20; TEMP 97.8; O2SAT 94
--- NOTE | 2017-08-28 09:15 | PN ---
SUBJECTIVE: The patient was seen and examined at bedside on the [facility]. No acute events overnight. She remains afebrile and hemodynamically stable, albeit with slightly elevated blood pressures. Overall the patient states she feels okay and wants to go home. Arrangements are being made with her [id number] to obtain expanded coverage at home with 24/7 home health aide given her history of recurrent falls. PHYSICAL EXAMINATION: VITAL SIGNS: Temperature 98.4, blood pressure 165/76, respiratory rate 18, pulse ox 99% on room air. GENERAL: No apparent distress. HEENT: PERRL, EOMI, no scleral icterus. No conjunctival pallor. NECK: No JVD. No bruits. LUNGS: Clear to auscultation. CARDIOVASCULAR: Regular rate and rhythm. Normal S1 and S2. ABDOMEN: Normoactive bowel sounds. Soft, nontender, and nondistended. EXTREMITIES: No edema. No joint deformities. NEUROLOGIC: Awake, alert, and oriented x3. Moving all extremities. LABORATORY DATA: No new labs. ASSESSMENT: The patient is an 87 year old woman with hypertension, dementia and anxiety disorder who was recently discharged from [facility] after admission for rhabdomyolysis and NSTEMI who was brought to the [facility] ED by EMS after being found down again at home by her home health aide. PLAN: 1. Recurrent falls. PT evaluation is pending. Arrangements are being made with the family to expand home health aide coverage to 24/7 given the patient's frail condition and history of recurrent falls. 2. CAD s/p NSTEMI. Continue Lipitor 40 mg p.o. daily and restart Metoprolol 25 mg p.o. b.i.d. The patient is not on an aspirin due to allergy. 3. Hypertension. Blood pressure is slightly elevated. We will resume Metoprolol 25 mg p.o. b.i.d. 4. Dementia. The patient is at her baseline neurologic status. Continue risperidone 0.5 mg p.o. b.i.d. 5. Anxiety disorder. Continue Xanax 0.25 mg p.o. b.i.d. as needed. 6. Prophylaxis, GI prophylaxis not indicated as the patient is eating. Continue with SCDs for DVT prophylaxis. CODE STATUS: Full code. Barney James MD MTDHugo
--- NOTE | 2017-08-28 09:49 | PN ---
SUBJECTIVE: The patient was seen and examined at bedside on the general [facility]. No acute events overnight. She remains afebrile and hemodynamically stable. The patient was admitted s/p mechanical fall and arrangements are being made by the family to have extended coverage at home with a 24/7 home health aide and pending these arrangements the patient may be scheduled for discharge to home today. OBJECTIVE: VITAL SIGNS: Temperature 97.8, pulse 70, blood pressure 163/82, respiratory rate 20, oxygen saturation 95% on room air. GENERAL: No apparent distress. HEENT: PERRL, EOMI. No scleral icterus. No conjunctival pallor. NECK: No JVD. No bruits.. LUNGS: Clear to auscultation. CARDIOVASCULAR: Regular rate and rhythm. Normal S1 and S2. ABDOMEN: Normoactive bowel sounds. Soft, nontender and nondistended. EXTREMITIES: No edema. NEUROLOGIC: Awake. alert and oriented x3. No focal motor deficits. LABORATORY DATA: No new labs. ASSESSMENT: The patient is an 87 year old woman with hypertension, dementia and anxiety disorder who is recently discharged from [facility] after admission for rhabdomyolysis and NSTEMI who was brought to [facility] ED by EMS after being found down again at home by her home health aide. PLAN: 1. Recurrent falls. Continue with physical therapy. Arrangements are being made by the family for 24/7 assistance at home given the patient's recurrent falls. 2. CAD s/p NSTEMI. Continue Lipitor 40 mg p.o. daily and Metoprolol 25 mg p.o. b.i.d. The patient is on aspirin due to allergy. 3. Hypertension. Continue Metoprolol 25 mg p.o. b.i.d. 4. Dementia. Continue risperidone 0.5 mg p.o. b.i.d. 5. Anxiety disorder. Continue Xanax 0.25 mg p.o. b.i.d. 6. Prophylaxis. GI prophylaxis not indicated as patient is eating. Continue with SCDs for DVT prophylaxis. CODE STATUS: Full code. Barney James MD [facility] # [id number] MTDD
--- NOTE | 2017-08-30 11:25 | DS ---
ADMITTING DIAGNOSIS: Mechanical fall. DISCHARGE DIAGNOSIS: Mechanical fall. SECONDARY DIAGNOSES: Hypertension, CAD, dementia and anxiety disorder. CONSULTATIONS: None. IMAGING STUDIES: 1. CT of the head without contrast which demonstrated no acute pathology. 2. CT of the C-spine without contrast which demonstrated no acute pathology. 3. CT of the thoracic spine which demonstrated no acute pathology. 4. Chest x-ray which demonstrated no acute pathology. 5. Pelvic x-ray which demonstrated no acute pathology. 6. Knee x-ray (bilateral) which demonstrated no acute pathology. PROCEDURES: None. HISTORY OF PRESENT ILLNESS: The patient is an 87 year old woman with a past medical history of dementia, anxiety disorder, CAD and hypertension who was recently admitted s/p mechanical fall at home and treated for rhabdomyolysis and NSTEMI who was discharged from TCU on 08/18/2017 and who returned to [facility] ED after reportedly being found down again at home by her home health aide. The patient states that she was in her usual state of health and sustained a mechanical fall with trauma to her right knee upon ambulating to the bathroom and was discovered by her home health aide on the ground lying on a pillow. The patient denied any head trauma or loss of consciousness associated with her fall. Upon arrival to the ED she was noted to be afebrile and hemodynamically stable and multiple imaging studies demonstrated no acute fractures or serious trauma. She was subsequently admitted to the [facility] for continued PT. HOSPITAL COURSE: Upon admission to the [facility] she was evaluated by PT and medically managed. A long discussion was had with both the patient and her family regarding the need for expanded coverage given her history of recurrent falls and the patient's family was agreeable to pursuing expanded home health aide coverage so as to minimize the risk of recurrent falls. After the family was able to procure 24/ supervision at home the patient was deemed stable for discharge to home. CONDITION: Good, improved. DISPOSITION: Home. DISCHARGE MEDICATIONS: Metoprolol 25 mg p.o. b.i.d., Lipitor 40 mg p.o. daily, Xanax 0.25 mg p.o. b.i.d. and Risperidone 0.5 mg p.o. b.i.d. DISCHARGE INSTRUCTIONS: The patient was advised to utilize assistive devices for walking and to ask a home health aide for assistance with ambulation so as to minimize the risk of current falls. FOLLOWUP: The patient is to follow up with her PMD within 1 week of discharge. Barney James MD MTDHugo
== END 2017-08-28 14:00 | disposition home or self-care (01) | DRG 604 ==
LOC: ED 09:42 → ERH 14:39 → 5RNO 17:10
PROVIDERS: ADMIT Student in an Organized Health Care Education/Training Program; ATTEND Student in an Organized Health Care Education/Training Program
DX: S00.83XA Contusion of other part of head, initial encounter (principal); I21.4 Non-ST elevation (NSTEMI) myocardial infarction; I11.0 Hypertensive heart disease with heart failure; I50.9 Heart failure, unspecified; M62.82 Rhabdomyolysis; W06.XXXA Fall from bed, initial encounter; F03.90 Unspecified dementia, unspecified severity, without behavioral disturbance, psychotic disturbance, mood disturbance, and anxiety; F41.9 Anxiety disorder, unspecified; I25.10 Atherosclerotic heart disease of native coronary artery without angina pectoris; R29.6 Repeated falls; M50.21 Other cervical disc displacement, high cervical region; R26.9 Unspecified abnormalities of gait and mobility; Z91.81 History of falling; Y93.89 Activity, other specified; Y92.092 Bedroom in other non-institutional residence as the place of occurrence of the external cause; Z90.49 Acquired absence of other specified parts of digestive tract

== ENCOUNTER 2017-09-23 10:54 | Emergency (ER) | payer MEDICARE ==
[2017-09-23 11:01] VITALS: RESP 18; TEMP 98.5; BMI 23.0
--- NOTE | 2017-09-23 11:35 | ED PDOC ---
Arrival/HPI - General Chief Complaint: Altered Mental Status Time Seen by Provider: 09/23/17 11:03 Historian: Patient - History of Present Illness Narrative History of Present Illness (Text): you were treated in the ED today for muscle cramps of the both lower legs with mild swelling and worsening when walking but otherwise without any trauma/fall/ injury/neck pain/loss of consciousness/nausea/vomiting/headache/dizziness/ difficulty breathing/chest pain/abdomen pain/numbness/tingling/loss of limb function/pain with urination. 09/23/17 11:32 Time/Duration: Other (2 days) Symptom Onset: Gradual Symptom Course: Intermittent Quality: Aching, Cramping Severity Level: 2 Activities at Onset: Rest Context: Sitting, Walking Past Medical History - Provider Review Nursing Documentation Reviewed: Yes - Travel History Have you recently traveled outside [place] w/in the past 3 mons?: No - Infectious Disease Hx of Infectious Diseases: None - Tetanus Immunization Tetanus Immunization: Unknown - Cardiac Hx Cardiac Disorders: Yes Hx Congestive Heart Failure: Yes Hx Hypertension: Yes - Pulmonary Hx Respiratory Disorders: No - Neurological Hx Neurological Disorder: Yes Hx Dementia: Yes - HEENT Hx HEENT Disorder: Yes (andreafski, wears eyeglasses) Hx Cataracts: Yes - Renal Hx Renal Disorder: Yes (KIDNEY STONES) - Endocrine/Metabolic Hx Endocrine Disorders: No - Hematological/Oncological Hx Blood Disorders: No - Integumentary Hx Dermatological Disorder: No - Musculoskeletal/Rheumatological Hx Rheumatoid Arthritis: Yes - Gastrointestinal Hx Gastrointestinal Disorders: Yes (constipation,appendectomy,cholecystectoomy, colon polyps,diverticulitis) - Genitourinary/Gynecological Hx Genitourinary Disorders: Yes (hesitancy,retention,) - Psychiatric Hx Psychophysiologic Disorder: Yes Hx Anxiety: Yes Hx Depression: Yes Hx Emotional Abuse: No Hx Physical Abuse: No Hx Substance Use: No Other/Comment: Early onset dementia - Surgical History Hx Appendectomy: Yes Hx Cholecystectomy: Yes Other/Comment: colon polyps - Anesthesia Hx Anesthesia: Yes Hx Anesthesia Reactions: No - Suicidal Assessment Feels Threatened In Home Enviroment: No Family/Social History - Physician Review Nursing Documentation Reviewed: Yes Family/Social History: No Known Family HX Smoking Status: Former Smoker Hx Alcohol Use: No Hx Substance Use: No Hx Substance Use Treatment: No Allergies/Home Meds Allergies/Adverse Reactions: Allergies aspirin Allergy (Verified 09/23/17 11:04) RASH iodine Allergy (Verified 09/23/17 11:04) RASH Penicillins Allergy (Verified 09/23/17 11:04) RASH Sulfa (Sulfonamide Antibiotics) Allergy (Verified 09/23/17 11:04) RASH Home Medications: Home Meds Medication Instructions Recorded Confirmed risperiDONE [RisperDAL Tab] 0.5 mg PO BID 08/08/17 09/23/17 Docusate Sodium [Colace] 1 cap PO PRN PRN 09/23/17 09/23/17 traMADol [Ultram] 50 mg PO TID PRN 09/23/17 09/23/17 Review of Systems - Review of Systems Constitutional: Normal Eyes: Normal ENT: Normal Respiratory: Normal Cardiovascular: Normal Gastrointestinal: Normal Genitourinary Female: Normal Musculoskeletal: Myalgias Skin: Normal Neurological: Normal Endocrine: Normal Hemo/Lymphatic: Normal Psychiatric: Normal Physical Exam Vital Signs Reviewed: Yes Vital Signs Temp Pulse Resp BP Pulse Ox 09/23/17 12:30 55 L 18 150/74 95 09/23/17 11:01 98.5 F 54 L 18 159/86 H 97 Temperature: Afebrile Blood Pressure: Hypertensive Pulse: Regular Respiratory Rate: Normal Appearance: Positive for: Well-Appearing, Non-Toxic, Comfortable Pain Distress: None Mental Status: Positive for: Alert and Oriented X 3 - Systems Exam Head: Present: Atraumatic, Normocephalic Pupils: Present: PERRL Extroacular Muscles: Present: EOMI Conjunctiva: Present: Normal Ears: Present: Normal Mouth: Present: Moist Mucous Membranes Pharnyx: Present: Normal Nose (External): Present: Atraumatic Nose (Internal): Present: Normal Inspection Neck: Present: Normal Range of Motion Respiratory/Chest: Present: Clear to Auscultation Cardiovascular: Present: Regular Rate and Rhythm Abdomen: No: Tenderness, Distention, Normal Bowel Sounds, Peritoneal Signs, Rebound, Guarding, McBurney's Point Tender, Rovsing's Sign Present, Hernias, Feeding Tubes, Ostomy Tubes, Mass/Organomegaly, Scars, Other Upper Extremity: Present: Normal Inspection Lower Extremity: Present: Other (b/l le mild swelling/edema wo erythema/ fluctuance/crepitus, and otherwise warm/sensation/cap refill/pt pulses wo specific tenderness.) Neurological: Present: GCS=15, CN II-XII Intact, Speech Normal, Motor Func Grossly Intact Skin: Present: Warm, Normal Color Psychiatric: Present: Alert, Oriented x 3, Normal Insight, Normal Concentration Medical Decision Making ED Course and Treatment: you were treated in the ED today for muscle cramps of the both lower legs with mild swelling and worsening when walking but otherwise without any trauma/fall/ injury/neck pain/loss of consciousness/nausea/vomiting/headache/dizziness/ difficulty breathing/chest pain/abdomen pain/numbness/tingling/loss of limb function/pain with urination. You were otherwise breathing easily, smiling and talking easily and answering questions, good strength/sensation, walking, clear lungs, no abdomen tenderness, no bony pain and both legs with mild swelling but no redness and were otherwise with good range of motion/sensation/warm/pulses, no fever temp 98.5, stable heart rate 54, stable breathing rate 18, excellent oxygen level 97% room air, elevated blood pressure 159/86 which we recommend repeat in 2-3 days primary care office to determine further treatment, you have blood tests no infection count 9, blood level hemoglobin 10.3/platelets 245, stable chemistry, heart blood test indeterminate range without any chest pain/ difficulty breathing symptoms, CK 40 normal, radiology ultrasound both legs negative for blood clots, ECG similar to prior, tylenol done in the ED with improvement, discussed with Dr. Cuadra who stated yes you can go home as well , counselled to rest and thus discharged home with home health aid. 1. Recommend heating pad to both lower legs. 2. Recommend tylenol for pain control. 3. Recommend follow-up primary care 2-3 days to review symptoms. 4. If any worsening pain, fever, chills, nausea, vomiting, difficulty breathing, numbness, loss of limb function, pain with urination or any medical condition then return to the ED. 09/23/17 13:31 09/23/17 14:21 d/w indeterminate trop with Dr. Prado who agreed no further testing needed. leg cramping which he was aware of, as well. - Lab Interpretations Lab Results: 09/23/17 11:55 09/23/17 11:55 Lab Results 09/23/17 11:55: Sodium 142, Potassium 4.0, Chloride 109 H, Carbon Dioxide 26, Anion Gap 12, BUN 16, Creatinine 1.0, Est GFR ( Amer) > 60, Est GFR (Non- Af Amer) 52, Random Glucose 91, Calcium 9.5, Total Bilirubin 0.3, AST 22, ALT 28 , Alkaline Phosphatase 56, Lactate Dehydrogenase 522, Total Creatine Kinase 40, Troponin I 0.04 D, Total Protein 6.2, Albumin 3.6, Globulin 2.7, Albumin/ Globulin Ratio 1.3 09/23/17 11:55: PT 14.7 H, INR 1.27 H, APTT 35.9 09/23/17 11:55: WBC 9.0 D, RBC 3.89, Hgb 10.3 L, Hct 33.9 L, MCV 87.1, MCH 26.5 , MCHC 30.4 L, RDW 14.5, Plt Count 245, MPV 9.2, Gran % 63.4, Lymph % (Auto) 23.9, [place] % (Auto) 10.7 H, Eos % (Auto) 1.3 L, Baso % (Auto) 0.7, Gran # 5.72, Lymph # 2.2, [place] # 1.0 H, Eos # 0.1, Baso # 0.06 - RAD Interpretation Radiology Orders: 09/23/17 11:27 DUPLEX LOWER EXTRM VEIN BILAT [US] Stat - EKG Interpretation Interpreted by ED Physician: Yes (sinus bradycardia) Type: 12 lead EKG Comparison: Similar to previous EKG (08/24/17) - Medication Orders Current Medication Orders: Discontinued Medications Acetaminophen (Tylenol 325mg Tab) 975 mg PO STAT STA Stop: 09/23/17 11:31 Last Admin: 09/23/17 12:02 Dose: 975 mg MAR Pain/Vitals Document 09/23/17 12:02 OCS (Rec: 09/23/17 12:03 OCS [id number]) Pain Reassessment Is This A Pain ReAssessment? Yes Sleep Is patient sleeping during reassessment? No Presence of Pain Presence of Pain Yes Pain Scale Used Pain Scale Used Numeric Disposition/Present on Arrival - Present on Arrival Any Indicators Present on Arrival: No History of DVT/PE: No History of Uncontrolled Diabetes: No Urinary Catheter: No History of Decub. Ulcer: No History Surgical Site Infection Following: None - Disposition Have Diagnosis and Disposition been Completed?: Yes Diagnosis: Leg cramp Disposition: HOME/ ROUTINE Disposition Time: 14:23 Patient Plan: Discharge Condition: IMPROVED Additional Instructions: you were treated in the ED today for muscle cramps of the both lower legs with mild swelling and worsening when walking but otherwise without any trauma/fall/ injury/neck pain/loss of consciousness/nausea/vomiting/headache/dizziness/ difficulty breathing/chest pain/abdomen pain/numbness/tingling/loss of limb function/pain with urination. You were otherwise breathing easily, smiling and talking easily and answering questions, good strength/sensation, walking, clear lungs, no abdomen tenderness, no bony pain and both legs with mild swelling but no redness and were otherwise with good range of motion/sensation/warm/pulses, no fever temp 98.5, stable heart rate 54, stable breathing rate 18, excellent oxygen level 97% room air, elevated blood pressure 159/86 which we recommend repeat in 2-3 days primary care office to determine further treatment, you have blood tests no infection count 9, blood level hemoglobin 10.3/platelets 245, stable chemistry, heart blood test indeterminate range without any chest pain/ difficulty breathing symptoms, CK 40 normal, radiology ultrasound both legs negative for blood clots, ECG similar to prior, tylenol done in the ED with improvement, discussed with Dr. Cuadra who stated yes you can go home as well , counselled to rest and thus discharged home with home health aid. 1. Recommend heating pad to both lower legs. 2. Recommend tylenol for pain control. 3. Recommend follow-up primary care 2-3 days to review symptoms. 4. If any worsening pain, fever, chills, nausea, vomiting, difficulty breathing, numbness, loss of limb function, pain with urination or any medical condition then return to the ED. Referrals: Anne-Marie Ng, [Primary Care Provider] - Follow up with primary Forms: [facility] ([place])
[2017-09-23 12:31] VITALS: BP 150/74; PULSE 55; O2SAT 95
[2017-09-23 13:11] LABS: TROPONIN I 0.04 ng/mL
[2017-09-23 13:17] LABS: BASO # 0.06 [, K/mm3] (0.0-2.0); BASO % 0.7 % (0.0-3.0); EOS # 0.1 (0.0-0.7); EOS % 1.3 % (1.5-5.0); GRAN # 5.72 (1.4-6.5); GRAN % 63.4 % (50.0-68.0); HEMOGLOBIN 10.3 g/dL (12.0-16.0); LYMPH # 2.2 (1.2-3.4); LYMPH % 23.9 % (22.0-35.0); MEAN CELL VOLUME 87.1 fl (80.0-105.0); MEAN CORPUSCULAR HEMOGLOBIN 26.5 pg (25.0-35.0); MEAN CORPUSCULAR HGB CONC 30.4 g/dl (31.0-37.0); MEAN PLATELET VOLUME 9.2 fl (7.0-11.0); MONO % 10.7 % (1.0-6.0); RBC 3.89 [, 10^6/uL] (3.5-6.1); RED CELL DISTRIBUTION WIDTH 14.5 % (11.5-14.5)
[2017-09-23 13:19] LABS: ALB/GLOB RATIO 1.3 (1.1-1.8); ALBUMIN 3.6 g/dL (3.0-4.8); ALT/SGPT 28 U/L (7-56); AST/SGOT 22 U/L (14-36); BLOOD UREA NITROGEN 16 mg/dL (7-21); CALCIUM 9.5 mg/dL (8.4-10.5); GFR AFRICAN-AMERICAN > 60; GFR NON-AFRICAN AMERICAN 52
[2017-09-23 13:28] LABS: INR 1.27 (0.93-1.08); PARTIAL THROMBOPLASTIN TIME 35.9 Seconds (25.1-36.5); PROTHROMBIN TIME 14.7 SECONDS (9.4-12.5)
--- NOTE | 2017-09-24 09:16 | CARD ---
APPROVED REPORT EKG Measurement Heart [id number] IN [id number] <Conclusion> Sinus bradycardia with premature atrial complex C/W ECG 08/24/17: improved repolarization pattern
--- NOTE | 2017-09-24 17:12 | US ---
HISTORY: Leg pain and swelling. Evaluate for DVT PHYSICIAN(S): Henrique Rios MD. TECHNIQUE: Duplex sonography and color-flow Doppler with graded compression were used to evaluate the deep venous systems of both lower extremities. FINDINGS: The visualized deep venous systems of both lower extremities are sonographically normal and compressible. Normal wave forms and augmentation are seen. There is no sonographic evidence for deep venous thrombosis in the visualized segments of both lower extremities. IMPRESSION: No sonographic evidence for deep venous thrombosis in the visualized segments of both lower extremities.
== END 2017-09-23 14:40 | disposition home or self-care (01) ==
LOC: ED 10:54
DX: R25.2 Cramp and spasm (principal); M06.9 Rheumatoid arthritis, unspecified; I10 Essential (primary) hypertension; I50.9 Heart failure, unspecified; Z87.891 Personal history of nicotine dependence

== ENCOUNTER 2017-10-06 07:15 | Inpatient (IN) | payer MEDICARE ==
[2017-10-06] MEDS ORDERED: TDAP Vaccine 0.5 mL Syr IM ONE (07:53)
--- NOTE | 2017-10-06 08:09 | ED PDOC ---
Arrival/HPI - General Chief Complaint: Trauma Time Seen by Provider: 10/06/17 07:51 Historian: Patient, Caregiver - History of Present Illness Narrative History of Present Illness (Text): 10/06/17 08:06 A 87 year old female, who lives at home with 24/7 home health care, whose past medical history includes AMS, chronic falls, and diverticulitis, presents to the emergency department accompanied by health aid, who states the patient was found at 6:00am this morning sitting against the bed and she is concerned for a possible fall from between 3:00a-6:00am this morning. The home health aid states that the patient can walk with assistance. The aid reports that she switched shifts for 1 week with her coworker and when she came back she noticed abrasions on the patient's knees indicating a fall. The patient currently states she has diffuse body pain throughout, but denies head pain, headache, abdominal pain, fevers, or any other complaints at this time. The patient's son is her power of assistant district attorney. Time/Duration: 1-3 hours Symptom Onset: Sudden Symptom Course: Other Quality: Aching Activities at Onset: Light Context: Home Past Medical History - Provider Review Nursing Documentation Reviewed: Yes - Travel History Have you recently traveled outside [place] w/in the past 3 mons?: No - Infectious Disease Hx of Infectious Diseases: None - Tetanus Immunization Tetanus Immunization: Unknown - Reproductive Menopause: Yes - Cardiac Hx Cardiac Disorders: Yes Hx Congestive Heart Failure: Yes Hx Hypertension: Yes - Pulmonary Hx Respiratory Disorders: No - Neurological Hx Neurological Disorder: Yes Hx Dementia: Yes - HEENT Hx HEENT Disorder: Yes (cherokee, wears eyeglasses) Hx Cataracts: Yes - Renal Hx Renal Disorder: Yes (KIDNEY STONES) - Endocrine/Metabolic Hx Endocrine Disorders: No - Hematological/Oncological Hx Blood Disorders: No - Integumentary Hx Dermatological Disorder: No - Musculoskeletal/Rheumatological Hx Rheumatoid Arthritis: Yes - Gastrointestinal Hx Gastrointestinal Disorders: Yes (constipation,appendectomy,cholecystectoomy, colon polyps,diverticulitis) - Genitourinary/Gynecological Hx Genitourinary Disorders: Yes (hesitancy,retention,) - Psychiatric Hx Psychophysiologic Disorder: Yes Hx Anxiety: Yes Hx Depression: Yes Hx Emotional Abuse: No Hx Physical Abuse: No Hx Substance Use: No Other/Comment: Early onset dementia - Surgical History Hx Appendectomy: Yes Hx Cholecystectomy: Yes Other/Comment: colon polyps - Anesthesia Hx Anesthesia: Yes Hx Anesthesia Reactions: No - Suicidal Assessment Feels Threatened In Home Enviroment: No Family/Social History - Physician Review Nursing Documentation Reviewed: Yes Family/Social History: No Known Family HX Smoking Status: Former Smoker Hx Alcohol Use: No Hx Substance Use: No Hx Substance Use Treatment: No Allergies/Home Meds Allergies/Adverse Reactions: Allergies aspirin Allergy (Verified 09/23/17 11:04) RASH iodine Allergy (Verified 09/23/17 11:04) RASH Penicillins Allergy (Verified 09/23/17 11:04) RASH Sulfa (Sulfonamide Antibiotics) Allergy (Verified 09/23/17 11:04) RASH Home Medications: Home Meds Medication Instructions Recorded Confirmed risperiDONE [RisperDAL Tab] 0.5 mg PO BID 08/08/17 10/06/17 traMADol [Ultram] 50 mg PO TID PRN 09/23/17 10/06/17 ALPRAZolam [Xanax] 0.5 mg PO TID 10/06/17 10/06/17 Review of Systems - Physician Review All systems were reviewed & negative as marked: Yes - Review of Systems Constitutional: absent: Fevers Eyes: absent: Vision Changes Cardiovascular: Chest Pain Gastrointestinal: absent: Abdominal Pain Skin: Other (multiple abrasions ) Neurological: absent: Headache, Speech Changes Physical Exam Vital Signs Reviewed: Yes Vital Signs Temp Pulse Resp BP Pulse Ox 10/06/17 11:07 94 H 18 128/86 97 10/06/17 10:51 98.1 F 66 16 160/82 H 99 10/06/17 09:45 72 16 152/82 H 99 10/06/17 07:15 97.8 F 64 18 135/78 98 Temperature: Afebrile Blood Pressure: Normal Pulse: Regular Respiratory Rate: Normal Appearance: Positive for: Well-Appearing, Non-Toxic, Other (alert/awake, answers questions appropriately, NAD, mildly uncomfortable, GCS = 15, oriented x 2 (not to date/time)) Pain Distress: None - Systems Exam Head: Present: Atraumatic, Normocephalic, Other (mild bi-temporal wasting) Pupils: Present: PERRL, Other (no nystagmus, no photophobia, sclera anicteric) Extroacular Muscles: Present: EOMI Conjunctiva: Present: Normal Ears: Present: Normal Mouth: Present: Dry, Other (fair dentitions, dry oral mucosa, no lesions/ ulcerations, no gross bleeding noted, uvula/tongue are midline) Pharnyx: Present: Normal Nose (External): Present: Atraumatic Nose (Internal): Present: Normal Inspection Neck: Present: Normal Range of Motion, Trachea Midline. No: MIDLINE TENDERNESS Respiratory/Chest: Present: Clear to Auscultation, Good Air Exchange, Other ( CTA b/l, no w/r/r, no accessory muscle use noted, no tachypenia). No: Respiratory Distress, Accessory Muscle Use Cardiovascular: Present: Regular Rate and Rhythm, Normal S1, S2. No: Murmurs Abdomen: Present: Normal Bowel Sounds, Other (well nourished female, no focal tenderness, no giordano's sign, no mcburney's point tenderness). No: Tenderness, Distention, Peritoneal Signs Back: Present: Normal Inspection Upper Extremity: Present: Normal Inspection, Normal ROM, NORMAL PULSES, Neurovascularly Intact, Capillary Refill < 2s, Other (strength 5-/5 b/l; neurovasc intact b/l). No: Cyanosis, Edema Lower Extremity: Present: NORMAL PULSES, Other (bilateral anterior knee abrasions; no lacerations noted, decr ROM to b/l lower ext, strength 3/5 b/l). No: Edema Neurological: Present: GCS=15, CN II-XII Intact, Speech Normal, Other (tremulous ) Skin: Present: Warm, Dry, Normal Color, Abrasion (bilateral anterior knee abrasions; aged wound abrasion to the left ankle malleolus; right abrasion of the medial aspect of great right toe. ). No: Rashes Psychiatric: Present: Alert. No: Oriented x 3 (Oriented x2 - not to date/time) Medical Decision Making ED Course and Treatment: 10/06/17 08:14 Impression: A 87 year old female brought in for fall I have considered all differential diagnoses regarding patients chief medical complaints/clinical findings which include but are not limited to: rule out fracture vs. rule out TIA vs infectious cause: UTI vs. Pneumonia Plan: -- Head CT -- EKG -- Chest X-ray -- Labs -- Radiology: Left Knee, Right Knee -- Urinalysis -- Tylenol, TDAP Vaccine -- Reassess and disposition Prior Visits: Notes and results from previous visits were reviewed. The patient was last seen in the emergency department on 09/23/17 for pain in left leg. The patient was discharged routine home. Progress Notes: 10/06/17 09:10 Chest X-ray IMPRESSION: No active disease. 10/06/17 09:17 Bilateral Knee Radiology IMPRESSION: Normal radiographs of the knees. 10/06/17 09:[address] IMPRESSION: No acute intracranial findings 10/06/17 11:[address] Yanes, made aware of pt's ED medical presentation, who agrees to admission and would like PT to be consulted. pt and volunteer recruiter are made aware of pt's medical results agrees with admission pt/volunteer recruiter are made aware that her frequent falling/and injuries sustained as a result would pose further danger for her and improved care/possible residential placement should be considered Re-evaluation Time: 11:21 Reassessment Condition: Improving,but remains with symptoms - Lab Interpretations Narrative Lab Interpretation (Text): 10/06/17 11:35 WNL Lab Results: 10/06/17 08:06 10/06/17 08:06 Lab Results 10/06/17 09:06: Urine Color Yellow, Urine Appearance Clear, Urine pH 6.5, Ur Specific [place] <= 1.005, Urine Protein Negative, Urine Glucose (UA) Negative, Urine Ketones Negative, Urine Blood Negative, Urine Nitrate Negative, Urine Bilirubin Negative, Urine Urobilinogen 0.2, Ur Leukocyte Esterase Negative 10/06/17 08:06: Sodium 145, Potassium 3.9, Chloride 111 H, Carbon Dioxide 23, Anion Gap 15, BUN 12, Creatinine 1.0, Est GFR ( Amer) > 60, Est GFR (Non- Af Amer) 52, Random Glucose 83, Calcium 9.5, Total Bilirubin 0.4, AST 31, ALT 32 , Alkaline Phosphatase 59, Total Creatine Kinase 120, Troponin I 0.04, Total Protein 6.4, Albumin 3.4, Globulin 3.0, Albumin/Globulin Ratio 1.1, Lipase 61 10/06/17 08:06: WBC 11.4 H D, RBC 3.83, Hgb 10.3 L, Hct 33.4 L, MCV 87.2, MCH 26.9, MCHC 30.8 L, RDW 15.3 H, Plt Count 382, MPV 8.6, Gran % 68.1 H, Lymph % ( Auto) 18.2 L, [place] % (Auto) 10.8 H, Eos % (Auto) 2.4, Baso % (Auto) 0.5, Gran # 7.80 H, Lymph # (Auto) 2.1, [place] # (Auto) 1.2 H, Eos # (Auto) 0.3, Baso # (Auto ) 0.06 I have reviewed the lab results: Yes Interpretation: All labs normal - RAD Interpretation Narrative RAD Interpretations (Text): 10/06/17 11:36 PROCEDURE: Bilateral Knee Radiographs. HISTORY: fall, knee pain COMPARISON: None. FINDINGS: BONES: Right Knee: Normal. No fracture. Left Knee: Normal. No fracture. JOINTS: Right Knee: Normal. No osteoarthritis. Left knee: Normal. No osteoarthritis. SOFT TISSUES: Right Knee: Normal. Left Knee: Normal. JOINT EFFUSION: Right Knee: None. Left Knee: None. OTHER FINDINGS: None. IMPRESSION: Normal radiographs of the knees. 10/06/17 11:36 PROCEDURE: CHEST RADIOGRAPH, 1 VIEW HISTORY: fall, chest pain COMPARISON: None available. FINDINGS: LUNGS: Clear. PLEURA: No pneumothorax or pleural fluid seen. CARDIOVASCULAR: Mild cardiomegaly OSSEOUS STRUCTURES: No significant abnormalities. VISUALIZED UPPER ABDOMEN: Normal. OTHER FINDINGS: None. IMPRESSION: No active disease. 10/06/17 11:37 PROCEDURE: CT HEAD WITHOUT CONTRAST. HISTORY: fall, unwitnessed, intermittent confusion COMPARISON: 08/24/2017 TECHNIQUE: Axial computed tomography images were obtained through the head/brain without intravenous contrast. Radiation dose: Total exam DLP = 764 mGy-cm. This CT exam was performed using one or more of the following dose reduction techniques: Automated exposure control, adjustment of the mA and/or kV according to patient size, and/or use of iterative reconstruction technique. FINDINGS: HEMORRHAGE: No intracranial hemorrhage. BRAIN: No mass effect or edema. No atrophy or chronic microvascular ischemic changes. VENTRICLES: Unremarkable. No hydrocephalus. CALVARIUM: Unremarkable. PARANASAL SINUSES: Unremarkable as visualized. No significant inflammatory changes. MASTOID AIR CELLS: Unremarkable as visualized. No inflammatory changes. OTHER FINDINGS: None. IMPRESSION: No acute intracranial findings Radiology Orders: 10/06/17 07:52 HEAD W/O CONTRAST [CT] Stat 10/06/17 07:53 CHEST ONE VIEW [RAD] Stat 10/06/17 07:54 KNEES BILATERAL [RAD] Stat Golf Ball Molder: Radiologist - EKG Interpretation EKG Interpretation (Text): 10/06/17 11:37 NSR at 60 bpm, LAD, no ectopy, RSR' V1 (likely conduction delay), poor baseline , diffuse low voltage throughout; ABNL EKG; mild changes compare with old ekg 2017 Interpreted by ED Physician: Yes Type: 12 lead EKG Comparison: Different from prev. EKG - Medication Orders Current Medication Orders: Discontinued Medications Acetaminophen (Tylenol 325mg Tab) 650 mg PO ONCE ONE Stop: 10/06/17 07:57 Last Admin: 10/06/17 08:09 Dose: 650 mg [facility] Pain/Vitals Document 10/06/17 08:09 MS (Rec: 10/06/17 08:13 [place] [facility] [id number][place] Pain Reassessment Is This A Pain ReAssessment? No Sleep Is patient sleeping during reassessment? No Presence of Pain Presence of Pain Yes Pain Scale Used Pain Scale Used Numeric Location Pain Location Body Site Generalized Description Intermittent Intensity 6 Scale Used Numeric Pain Behavior Facial Grimacing Tetanus/Reduced Diphtheria/Acell Pertussis (Boostrix Vaccine Inj) 0.5 ml IM .ONCE ONE Stop: 10/06/17 07:54 Last Admin: 10/06/17 08:13 Dose: 0.5 ml [facility] Immunization Data Document 10/06/17 08:13 MS (Rec: 10/06/17 08:13 MS [facility] [id number][place] Immunization Data Vaccine Information Sheet Given Yes Immunization Registry Document 10/06/17 08:13 MS (Rec: 10/06/17 08:13 MS [facility] [id number]) Immunization Registry Consent Date 08/08/17 - Scribe Statement The provider has reviewed the documentation as recorded by the Karen Kessler Provider Scribe Attestation: All medical record entries made by the Scribe were at my direction and personally dictated by me. I have reviewed the chart and agree that the record accurately reflects my personal performance of the history, physical exam, medical decision making, and the department course for this patient. I have also personally directed, reviewed, and agree with the discharge instructions and disposition. Disposition/Present on Arrival - Present on Arrival Any Indicators Present on Arrival: No History of DVT/PE: No History of Uncontrolled Diabetes: No Urinary Catheter: No History of Decub. Ulcer: No History Surgical Site Infection Following: None - Disposition Have Diagnosis and Disposition been Completed?: Yes Diagnosis: Ambulatory dysfunction, Knee abrasion, Weakness, Strain of knee, bilateral Disposition: HOSPITALIZED Disposition Time: 11:30 Patient Plan: Admission Condition: STABLE Discharge Instructions (ExitCare): Weakness (ED)
[2017-10-06 08:40] LABS: BASO # 0.06 K/mm3 (0.0-2.0); BASO % 0.5 % (0.0-3.0); EOS # 0.3 (0.0-0.7); EOS % 2.4 % (1.5-5.0); GRAN # 7.8 (1.4-6.5); GRAN % 68.1 % (50.0-68.0); HEMOGLOBIN 10.3 g/dL (12.0-16.0); LYMPH # 2.1 (1.2-3.4); LYMPH % 18.2 % (22.0-35.0); MEAN CELL VOLUME 87.2 fl (80.0-105.0); MEAN CORPUSCULAR HEMOGLOBIN 26.9 pg (25.0-35.0); MEAN CORPUSCULAR HGB CONC 30.8 g/dl (31.0-37.0); MEAN PLATELET VOLUME 8.6 fl (7.0-11.0); MONO # 1.2 (0.1-0.6); MONO % 10.8 % (1.0-6.0); RBC 3.83 10^6/uL (3.5-6.1); RED CELL DISTRIBUTION WIDTH 15.3 % (11.5-14.5); WHITE BLOOD COUNT 11.4 10^3/ul (4.5-11.0)
[2017-10-06 08:48] LABS: ALB/GLOB RATIO 1.1 (1.1-1.8); ALBUMIN 3.4 g/dL (3.0-4.8); ALT/SGPT 32 U/L (7-56); AST/SGOT 31 U/L (14-36); BLOOD UREA NITROGEN 12 mg/dL (7-21); CALCIUM 9.5 mg/dL (8.4-10.5); GFR AFRICAN-AMERICAN > 60; GFR NON-AFRICAN AMERICAN 52; LIPASE 61 U/L (23-300)
[2017-10-06 08:58] LABS: TROPONIN I 0.04 ng/mL
--- NOTE | 2017-10-06 09:03 | RAD ---
PROCEDURE: CHEST RADIOGRAPH, 1 VIEW HISTORY: fall, chest pain COMPARISON: None available. FINDINGS: LUNGS: Clear. PLEURA: No pneumothorax or pleural fluid seen. CARDIOVASCULAR: Mild cardiomegaly OSSEOUS STRUCTURES: No significant abnormalities. VISUALIZED UPPER ABDOMEN: Normal. OTHER FINDINGS: None. IMPRESSION: No active disease.
--- NOTE | 2017-10-06 09:04 | RAD ---
PROCEDURE: Bilateral Knee Radiographs. HISTORY: fall, knee pain COMPARISON: None. FINDINGS: BONES: Right Knee: Normal. No fracture. Left Knee: Normal. No fracture. JOINTS: Right Knee: Normal. No osteoarthritis. Left knee: Normal. No osteoarthritis. SOFT TISSUES: Right Knee: Normal. Left Knee: Normal. JOINT EFFUSION: Right Knee: None. Left Knee: None. OTHER FINDINGS: None. IMPRESSION: Normal radiographs of the knees.
--- NOTE | 2017-10-06 09:15 | CT ---
PROCEDURE: CT HEAD WITHOUT CONTRAST. HISTORY: fall, unwitnessed, intermittent confusion COMPARISON: 08/24/2017 TECHNIQUE: Axial computed tomography images were obtained through the head/brain without intravenous contrast. Radiation dose: Total exam DLP = 764 mGy-cm. This CT exam was performed using one or more of the following dose reduction techniques: Automated exposure control, adjustment of the mA and/or kV according to patient size, and/or use of iterative reconstruction technique. FINDINGS: HEMORRHAGE: No intracranial hemorrhage. BRAIN: No mass effect or edema. No atrophy or chronic microvascular ischemic changes. VENTRICLES: Unremarkable. No hydrocephalus. CALVARIUM: Unremarkable. PARANASAL SINUSES: Unremarkable as visualized. No significant inflammatory changes. MASTOID AIR CELLS: Unremarkable as visualized. No inflammatory changes. OTHER FINDINGS: None. IMPRESSION: No acute intracranial findings
[2017-10-06 10:56] LABS: PH,URINE 6.5 (4.7-8.0); URINE BILIRUBIN NEGATIVE (NEGATIVE); URINE BLOOD NEGATIVE (NEGATIVE); URINE COLOR YELLOW (YELLOW); URINE GLUCOSE (UA) NEGATIVE (NEGATIVE); URINE LEUKOCYTE ESTERASE NEGATIVE Leu/uL (NEGATIVE); URINE NITRATE NEGATIVE (NEGATIVE); URINE PROTEIN NEGATIVE mg/dL (<30 mg/dL); URINE UROBILINOGEN 0.2 E.U./dL (<1 E.U./dL)
[2017-10-06 10:57] LABS: URINE APPEARANCE CLEAR (CLEAR)
[2017-10-06 14:08] VITALS: BMI 22.8
[2017-10-06] MEDS ORDERED: Pneumococcal 23-Valent Vaccine IM ONE (14:08)
[2017-10-06] MEDS ORDERED: Influenza Vaccine 60 mcg/0.5 mL SYR (4YR UP) IM ONE (14:08)
--- NOTE | 2017-10-06 14:39 | CARD ---
APPROVED REPORT EKG Measurement Heart [id number] [id number] [id number] <Conclusion> Sinus bradycardia RSR' or QR pattern in V1 suggests right ventricular conduction delay Borderline ECG
--- NOTE | 2017-10-07 09:07 | HP ---
HISTORY OF PRESENT ILLNESS: The patient is an 87 year old woman with a past medical history of dementia and recurrent falls with multiple prior ED visits and admissions for recurrent mechanical falls at home who presented to [facility] ED for evaluation of another mechanical fall. Over the course of the past several months the patient has been becoming more frail and has demonstrated notable deterioration in her functional status. She has fallen several times and multiple discussions were had with the family regarding possible placement into a shelter. The family, however, has been reluctant to place the patient and made arrangement for home health aides. Despite a 26/03 home health aide, the patient has presented to the ED on 2 separate occasions for a mechanical fall. On this presentation she was reportedly seated on the edge of her bed and upon attempting to stand up she slipped off the edge of the bed. She denied any major trauma and overall stated she felt ok. Given the difficulty to help stand her up, EMS was called and the patient was brought to [facility] ED for evaluation. Examination in the ED was unremarkable and multiple imaging studies were unremarkable for any acute fracture or pathology. She was then admitted to the general medical beltrán for PT evaluation. PAST MEDICAL HISTORY: As per HPI, also anxiety disorder, hypertension, CAD and diverticulosis with prior admissions for diverticulitis. PAST SURGICAL HISTORY: Cholecystectomy and appendectomy. ALLERGIES: ASA, Iodine, penicillin and sulfa. MEDICATIONS: Metoprolol 25 mg p.o. b.i.d., Lipitor 40 mg p.o. daily, Xanax 0.25 mg p.o. b.i.d. and Risperidone 0.5 mg p.o. b.i.d. FAMILY HISTORY: Noncontributory. SOCIAL HISTORY: The patient lives alone with a home health aide. She denies any toxic habits. REVIEW OF SYSTEMS: A 14-point review of systems is negative except as per HPI. PHYSICAL EXAMINATION: VITAL SIGNS: Temperature 98.1, pulse 94, blood pressure 128/86, respiratory rate 18, oxygen saturation 97% on room air. GENERAL: Frail, elderly woman lying in bed in no apparent distress. HEENT: Normocephalic, atraumatic. PERRL. EOMI. No scleral icterus. No conjunctival pallor. NECK: Supple with full range of motion. No JVD. No bruits. LUNGS: Clear to auscultation. CARDIOVASCULAR: Regular rate and rhythm. Normal S1 and S2. ABDOMEN: Normoactive bowel sounds, soft, nontender, and nondistended. EXTREMITIES: No edema. No joint deformities. NEUROLOGIC: Awake, alert, and oriented x3. Moving all extremities. SKIN: Multiple abrasions and contusions noted to the extremities and torso. LABORATORY DATA: CBC reviewed and unremarkable. CMP reviewed and unremarkable. IMAGING STUDIES: 1. CT of the head without contrast demonstrated no acute pathology. 2. Chest x-ray demonstrated no active disease. 3. Bilateral knee x-ray demonstrated no acute pathology. ASSESSMENT: The patient is an 87 year old woman with dementia, hypertension, CAD and multiple admissions for recurrent falls who presented for evaluation of another fall at home. PLAN: 1. Recurrent falls. We will consult PT for evaluation and recommendations. As above, there have been multiple discussions with the patient and her family regarding the need for possible placement in this patient given her multiple presentations to the hospital with recurrent falls. It is quite obvious that she is not being cared for at home in the manner that would minimize recurrent falls. Recommendations will again be made to the family for placement or looking into a different home service. 2. CAD s/p NSTEMI. Resume Lipitor 40 mg p.o. daily, Metoprolol 25 mg p.o. b.i.d. The patient is not on aspirin due to allergies. 3. Hypertension. As above, we will resume metoprolol 25 mg p.o. b.i.d. 4. Dementia. Resume risperidone 0.5 mg p.o. b.i.d. 5. Anxiety disorder. Resume Xanax 0.25 mg p.o. b.i.d. 6. Prophylaxis. GI prophylaxis not indicated as the patient is eating. Continue with SCDs for DVT prophylaxis. CODE STATUS: Full code. Barney James MD [email or web address]
--- NOTE | 2017-10-08 12:25 | PN ---
SUBJECTIVE: The patient was seen and examined at bedside on the general medical beltrán. No acute events overnight. She remains afebrile and hemodynamically stable. She is pending physical therapy evaluation after presentation with a recurrent mechanical fall. OBJECTIVE: VITAL SIGNS: Temperature 98.2, pulse 77, blood pressure 123/64, respiratory rate 20, and oxygen saturation 98% on room air. GENERAL: Frail elderly woman, lying in bed, in no apparent distress. HEENT: PERRL. EOMI. No scleral icterus. No conjunctival pallor. NECK: No JVD. No bruits. LUNGS: Clear to auscultation. CARDIOVASCULAR: Regular rate and rhythm. Normal S1 and S2. ABDOMEN: Normoactive bowel sounds. Soft, nontender, and nondistended. EXTREMITIES: No edema. No joint deformities. NEUROLOGIC: Awake, alert, and oriented x3. No focal motor deficits. SKIN: Multiple abrasions and contusions noted to extremities and torso. LABORATORY DATA: No new labs. ASSESSMENT: The patient is an 87 year old woman with dementia, hypertension, coronary artery disease and history of recurrent falls who presented for evaluation after another mechanical fall at home. PLAN: 1. Recurrent falls. PT evaluation pending. Per discussion with the family, they are looking into different home services vs possible placement so as to minimize the risk of recurrent falls at home. 2. CAD s/p NSTEMI. Continue Lipitor 40 mg p.o. daily, Metoprolol 25 mg p.o. b.i.d. The patient is not on aspirin due to allergy. 3. Hypertension. Blood pressure controlled. Continue Metoprolol 25 mg p.o. b.i.d. 4. Dementia. Continue Risperidone 0.5 mg p.o. b.i.d. 5. Anxiety disorder. Continue Xanax 0.25 mg p.o. b.i.d. 6. Prophylaxis. GI prophylaxis not indicated as the patient is eating. Continue with SCDs for DVT prophylaxis. CODE STATUS: Full code. Barney James MD VANDANA
--- NOTE | 2017-10-09 06:07 | CP.PCM.PN ---
Subjective - Date & Time of Evaluation Date of Evaluation: 10/09/17 Time of Evaluation: 06:05 - Subjective Subjective: S:Nurse calls with BP reading of 187/107, 101/min,97.6*. Has no symptoms. Has been confused which is not new. Would not swallow oral blood pressure medication. Medical record was reviewed. O: Stable. Not in distress. LUNGS:Normal breathing pattern. A:Elevated blood pressure reading. P:Hydralazine 10 mg IV stat. Objective - Vital Signs/Intake and Output Vital Signs (last 24 hours): Temp Pulse Resp BP Pulse Ox 97.6 F 69 20 191/76 H 98 10/09/17 00:00 10/09/17 00:00 10/09/17 00:00 10/09/17 00:00 10/09/17 00:00 Intake and Output: 10/08/17 10/09/17 18:59 06:59 Intake Total 420 Balance 420 - Medications Medications: Current Medications Alprazolam (Xanax) 0.25 mg PO BID [facility] PRN Reason: Protocol Stop: 10/13/17 18:01 Last Admin: 10/08/17 17:32 Dose: 0.25 mg Atorvastatin Calcium (Lipitor) 40 mg PO DAILY [facility] Last Admin: 10/08/17 09:44 Dose: 40 mg Metoprolol Tartrate (Lopressor) 25 mg PO BID [facility] Last Admin: 10/08/17 17:32 Dose: 25 mg Risperidone (Risperdal Tab) 0.5 mg PO BID [facility] PRN Reason: Protocol Last Admin: 10/08/17 17:32 Dose: 0.5 mg
--- NOTE | 2017-10-09 09:41 | PN ---
SUBJECTIVE: The patient was seen and examined at bedside on the general medical beltrán. Overnight the patient was noted to be confused and combative and was assessed by the house staff. This morning she seems much more calm but is confused and oriented only to self but offers no complaints. OBJECTIVE VITAL SIGNS: Temperature 97.6, pulse 69, blood pressure 114/63, respiratory rate 20, oxygen saturation 98% on room air. GENERAL: Frail elderly woman, lying in bed, in no apparent distress. HEENT: PERRL. EOMI. No scleral icterus. No conjunctival pallor. NECK: No JVD. No bruits. LUNGS: Clear to auscultation. CARDIOVASCULAR: Regular rate and rhythm. Normal S1 and S2. ABDOMEN: Normoactive bowel sounds. Soft, nontender, nondistended. EXTREMITIES: No edema. No joint deformities. NEUROLOGIC: Awake, alert, and oriented only to self. No focal motor deficits. SKIN: Multiple abrasions and contusions to extremities and torso. LABORATORY DATA: No new labs. ASSESSMENT: The patient is an 87 year old woman with dementia, hypertension, coronary artery disease and history of recurrent falls who presented for evaluation after a mechanical fall at home. PLAN: 1. Recurrent falls. PT evaluation noted. Recommendations have been made for subacute rehab versus home health services. We will need to confer with the family regarding their preference for disposition. 2. CAD s/p NSTEMI. Continue Lipitor 40 mg p.o. daily, Metoprolol 25 mg p.o. b.i.d. The patient is not on aspirin due to allergy. 3. Hypertension. Continue Metoprolol 25 mg p.o. b.i.d. 4. Dementia. Continue Risperidone 0.5 mg p.o. b.i.d. 5. Anxiety disorder. Continue Xanax 0.25 mg p.o. b.i.d. 6. Prophylaxis: GI prophylaxis is not indicated as the patient is eating. Continue with SCDs for DVT prophylaxis. CODE STATUS: Full code. Barney James MD VANDANA
[2017-10-10 08:40] VITALS: RESP 20; O2SAT 99
--- NOTE | 2017-10-10 12:41 | PN ---
SUBJECTIVE: The patient was seen and examined at bedside on the general medical beltrán. No acute events overnight. She remains afebrile and hemodynamically stable. Arrangements are being made by the family for placement and they are looking into a long-term facility near their home. Otherwise, the patient remains clinically stable. OBJECTIVE: VITAL SIGNS: Temperature 99.5, pulse 64, blood pressure 130/54, respiratory rate 18, and oxygen saturation 97% on room air. GENERAL: Frail elderly woman, lying in bed, in no apparent distress. HEENT: PERRL. EOMI. No scleral icterus. No conjunctival pallor. NECK: No JVD. No bruits. LUNGS: Clear to auscultation. CARDIOVASCULAR: Regular rate and rhythm. Normal S1 and S2. ABDOMEN: Normoactive bowel sounds. Soft, nontender, and nondistended. EXTREMITIES: No edema. No joint deformities. NEUROLOGIC: Awake, alert, and oriented only to self. No focal motor deficits. LABORATORY DATA: No new labs. ASSESSMENT: The patient is an 87 year old woman with dementia, hypertension, coronary artery disease and history of recurrent falls who presented for evaluation after a mechanical fall at home. PLAN: 1. Recurrent falls. PT evaluation noted. Recommendations have been made for subcutaneous rehab versus home with services. The patient's family is looking into long-term placement options. 2. CAD s/p NSTEMI. Continue Lipitor 40 mg p.o. daily, Metoprolol 25 mg p.o. b.i.d. The patient is not on aspirin due to allergy. 3. Hypertension. Continue Metoprolol 25 mg p.o. b.i.d. 4. Dementia. Continue Risperidone 0.5 mg p.o. b.i.d. 5. Anxiety disorder. Continue Xanax 0.25 mg p.o. b.i.d. 6. Prophylaxis. GI prophylaxis not indicated as the patient is eating. Continue with SCDs for DVT prophylaxis. CODE STATUS: Full code. Barney James MD VANDANA
[2017-10-10 16:18] VITALS: BP 98/54; PULSE 69; TEMP 97.9
== END 2017-10-10 18:33 | disposition home or self-care (01) | DRG 884 ==
LOC: ED 07:15 → ERH 11:14 → 5RSO 13:38
PROVIDERS: ADMIT Student in an Organized Health Care Education/Training Program; ATTEND Student in an Organized Health Care Education/Training Program
PROC: 3E0234Z Introduction of Serum, Toxoid and Vaccine into Muscle, Percutaneous Approach (ICD-10-PCS; principal; 2017-10-06)
DX: F03.90 Unspecified dementia, unspecified severity, without behavioral disturbance, psychotic disturbance, mood disturbance, and anxiety (principal); I11.0 Hypertensive heart disease with heart failure; I50.9 Heart failure, unspecified; M06.9 Rheumatoid arthritis, unspecified; W18.30XA Fall on same level, unspecified, initial encounter; I25.10 Atherosclerotic heart disease of native coronary artery without angina pectoris; I45.9 Conduction disorder, unspecified; S80.219A Abrasion, unspecified knee, initial encounter; S86.912A Strain of unspecified muscle(s) and tendon(s) at lower leg level, left leg, initial encounter; S86.911A Strain of unspecified muscle(s) and tendon(s) at lower leg level, right leg, initial encounter; Y92.009 Unspecified place in unspecified non-institutional (private) residence as the place of occurrence of the external cause; Z86.010 Personal history of colon polyps; Z87.442 Personal history of urinary calculi; Z90.49 Acquired absence of other specified parts of digestive tract; Z88.6 Allergy status to analgesic agent; Z88.0 Allergy status to penicillin; Z88.2 Allergy status to sulfonamides; Z88.8 Allergy status to other drugs, medicaments and biological substances; R40.2412 Glasgow coma scale score 13-15, at arrival to emergency department; F41.9 Anxiety disorder, unspecified; I25.2 Old myocardial infarction; Z23 Encounter for immunization; Z91.81 History of falling

== ENCOUNTER 2017-10-18 11:01 | Inpatient (IN) | payer MEDICARE ==
[2017-10-18 11:15] VITALS: BMI 22.4
--- NOTE | 2017-10-18 11:52 | ED PDOC ---
Arrival/HPI - General Chief Complaint: Weakness/Neurological Deficit Time Seen by Provider: 10/18/17 11:27 Historian: Other (Home health aid) - History of Present Illness Narrative History of Present Illness (Text): 10/18/17 11:51 A 87 year old female who lives with a 24/7 home health aid, with a past medical history of hypertension, CHF, dementia and chronic falls, brought into the emergency department by home health aid for increased lethargy and generalized weakness since yesterday. Home health aide notes foul smelling urine but denies any fever, vomiting, diarrhea, abdominal pain, chest pain, shortness of breath, cough or any other complaints. HPI and ROS limited due to patients state. PMD: Dr. James Time/Duration: Other (yesterday) Symptom Course: Unchanged Context: Home Past Medical History - Provider Review Nursing Documentation Reviewed: Yes - Infectious Disease Hx of Infectious Diseases: None - Tetanus Immunization Tetanus Immunization: Unknown - Cardiac Hx Cardiac Disorders: Yes Hx Congestive Heart Failure: Yes Hx Hypertension: Yes - Pulmonary Hx Respiratory Disorders: Yes (H/O SMOKING CIGARETTES) - Neurological Hx Neurological Disorder: Yes Hx Dementia: Yes - HEENT Hx HEENT Disorder: Yes ([place], wears eyeglasses) Hx Cataracts: Yes - Renal Hx Renal Disorder: Yes (KIDNEY STONES) - Endocrine/Metabolic Hx Endocrine Disorders: No - Hematological/Oncological Hx Blood Disorders: No - Integumentary Hx Dermatological Disorder: No Other/Comment: 2-3-18 MULTIPLE BRUISING TO ARMS,MULTIPLE PUSTULES AND SML WOUND TO BILATERAL FOOT,LEG,BILATERAL KNEE SKIN ABRASION,CHIN SLIGHTLY SWOLLEN AND RED. - Musculoskeletal/Rheumatological Hx Musculoskeletal Disorders: Yes (RIB FX) Hx Falls: Yes (MULTIPLE) Hx Unsteady Gait: Yes (CANE,WALKER) - Gastrointestinal Hx Gastrointestinal Disorders: Yes (constipation,appendectomy,cholecystectoomy, colon polyps,diverticulitis) Other/Comment: DIVERTICULOSIS,DIVERTICULITIS, - Genitourinary/Gynecological Hx Genitourinary Disorders: Yes (hesitancy,retention,) - Psychiatric Hx Psychophysiologic Disorder: Yes Hx Anxiety: Yes Hx Depression: Yes Hx Emotional Abuse: No Hx Physical Abuse: No Hx Substance Use: No Other/Comment: Early onset dementia - Surgical History Hx Appendectomy: Yes Hx Cholecystectomy: Yes Other/Comment: colon polyps - Anesthesia Hx Anesthesia: Yes Hx Anesthesia Reactions: No - Suicidal Assessment Feels Threatened In Home Enviroment: No Family/Social History - Physician Review Nursing Documentation Reviewed: Yes Family/Social History: No Known Family HX Smoking Status: Former Smoker Hx Alcohol Use: No Hx Substance Use: No Hx Substance Use Treatment: No Allergies/Home Meds Allergies/Adverse Reactions: Allergies aspirin Allergy (Verified 10/06/17 11:52) RASH iodine Allergy (Verified 10/06/17 11:52) RASH Penicillins Allergy (Verified 10/06/17 11:52) RASH Sulfa (Sulfonamide Antibiotics) Allergy (Verified 10/06/17 11:52) RASH Home Medications: Home Meds Medication Instructions Recorded Confirmed risperiDONE [RisperDAL Tab] 0.5 mg PO BID 08/08/17 10/06/17 traMADol [Ultram] 50 mg PO TID PRN 09/23/17 10/06/17 ALPRAZolam [Xanax] 0.5 mg PO TID 10/06/17 10/06/17 Review of Systems - Review of Systems Systems not reviewed;Unavailable: Acuity of Condition Physical Exam Vital Signs Reviewed: Yes Vital Signs Temp Pulse Resp BP Pulse Ox 10/18/17 13:51 76 18 132/55 L 95 10/18/17 11:14 99.9 F H 78 18 133/60 95 Temperature: Febrile Blood Pressure: Normal Pulse: Regular Respiratory Rate: Normal Appearance: Positive for: Well-Appearing, Non-Toxic, Comfortable Pain Distress: None - Systems Exam Head: Present: Atraumatic, Normocephalic Pupils: Present: PERRL Extroacular Muscles: Present: EOMI Conjunctiva: Present: Normal Mouth: Present: Moist Mucous Membranes Respiratory/Chest: Present: Good Air Exchange, Rhonchi (bilaterally). No: Respiratory Distress, Accessory Muscle Use Cardiovascular: Present: Regular Rate and Rhythm, Normal S1, S2. No: Murmurs Abdomen: Present: Normal Bowel Sounds. No: Tenderness, Distention, Peritoneal Signs Upper Extremity: Present: Normal Inspection. No: Cyanosis, Edema Lower Extremity: Present: Normal Inspection. No: Edema Skin: Present: Warm, Dry, Normal Color. No: Rashes Psychiatric: Present: Lethargic (but easily arousbale to verbal stimuli) Medical Decision Making ED Course and Treatment: 10/18/17 11:51 Impression: A 87 year old female brought in for increased lethargy and generalized weakness Plan: -- Chest xray -- EKG -- Labs -- Rapid flu -- Blood and Urine culture -- Urinalysis -- Reassess and disposition Progress Notes: EKG shows NSR at 86 BPM with normal rate, normal axis, normal interval. Interpreted by me. Report Date : 10/18/2017 12:24:44 Procedure: Chest xray Dictator : Angela Miller MD IMPRESSION: No active pulmonary disease 10/18/17 14:[address] James, who agrees with plan to admit patient to the hospital. Request head CT prior to admission. Report Date : 10/18/2017 15:32:11 PROCEDURE: CT HEAD WITHOUT CONTRAST. Dictator : Angela Miller MD IMPRESSION: No acute intracranial abnormality. Mild chronic microangiopathic changes and moderate age-related global parenchymal volume loss. - Lab Interpretations Lab Results: 10/18/17 11:50 10/18/17 11:50 Lab Results 10/18/17 13:30: Urine Color Yellow, Urine Appearance Clear, Urine pH 6.0, Ur Specific [place] 1.020, Urine Protein 30 H, Urine Glucose (UA) Negative, Urine Ketones Negative, Urine Blood Negative, Urine Nitrate Negative, Urine Bilirubin Negative, Urine Urobilinogen 0.2, Ur Leukocyte Esterase Negative, Urine RBC 0 - 2, Urine WBC 0 - 2, Ur Epithelial Cells 3 - 4, Amorphous Sediment Few, Urine Bacteria Many, Urine Other Uyeast 10/18/17 12:40: Influenza Typ A,B (EIA) Negative for flu a/b 10/18/17 12:01: POC Glucose (mg/dL) 93 10/18/17 11:50: Sodium 137, Chloride 108 H, Potassium 4.3, Carbon Dioxide 19 L, Anion Gap 15, BUN 18, Creatinine 1.1, Est GFR ( Amer) 57, Est GFR (Non- Af Amer) 47, Random Glucose 87, Calcium 8.9, Phosphorus 3.4, Magnesium 1.8, Total Bilirubin 0.8, AST 38 H D, ALT 28, Alkaline Phosphatase 66, Total Protein 5.9, Albumin 3.1, Globulin 2.8, Albumin/Globulin Ratio 1.1, Lipase 45 10/18/17 11:50: pO2 47, VBG pH 7.37, VBG pCO2 36.0 L, VBG HCO3 20.8 L, VBG Total CO2 21.9 L, VBG O2 Sat (Calc) 84.7 H, VBG Base Excess -3.9 L, VBG Potassium 4.4, Sodium 135.0, Chloride 110.0 H, Glucose 92, Lactate 1.4, FiO2 21.0, Venous Blood Potassium 4.4 10/18/17 11:50: PT 14.4 H, INR 1.25 H 10/18/17 11:50: WBC 13.3 H, RBC 3.68, Hgb 9.7 L, Hct 31.4 L, MCV 85.3, MCH 26.4 , MCHC 30.9 L, RDW 16.3 H, Plt Count 230, MPV 9.0, Gran % 78.9 H, Lymph % (Auto ) 10.6 L, [place] % (Auto) 9.7 H, Eos % (Auto) 0.3 L, Baso % (Auto) 0.5, Gran # 10.47 H, Lymph # (Auto) 1.4, [place] # (Auto) 1.3 H, Eos # (Auto) 0.0, Baso # (Auto ) 0.07 I have reviewed the lab results: Yes - RAD Interpretation Radiology Orders: 10/18/17 11:27 CHEST TWO VIEWS (PA/LAT) [RAD] Stat 10/18/17 14:14 HEAD W/O CONTRAST [CT] Stat - Medication Orders Current Medication Orders: Sodium Chloride (Sodium Chloride 0.9%) 1,000 mls @ 75 mls/hr IV .[id number] CARYN Stop: 10/19/17 17:09 Last Admin: 10/18/17 14:44 Dose: 75 mls/hr eMAR Start Stop Document 10/18/17 14:44 GMD (Rec: 10/18/17 14:44 [facility] [id number] Intravenous Solution Start Date 10/18/17 Start Time 14:44 Discontinued Medications Sodium Chloride (Sodium Chloride 0.9%) 1,000 mls @ 999 mls/hr IV .[id number] STA Stop: 10/18/17 13:42 Last Admin: 10/18/17 13:04 Dose: 999 mls/hr eMAR Start Stop Document 10/18/17 13:04 GMD (Rec: 10/18/17 13:04 [facility]MD [id number][place] Intravenous Solution Start Date 10/18/17 Start Time 13:04 End Date 10/18/17 End time 14:04 Total Infusion Time 60 Levofloxacin/Dextrose (Levaquin 750mg) 750 mg in 150 mls @ 100 mls/hr IVPB STAT STA PRN Reason: Protocol Stop: 10/18/17 15:29 Last Admin: 10/18/17 14:10 Dose: 100 mls/hr eMAR Start Stop Document 10/18/17 14:10 GMD (Rec: 10/18/17 14:10 GMD [id number][place] Intravenous Solution Start Date 10/18/17 Start Time 14:10 End Date 10/18/17 End time 15:40 Total Infusion Time 90 - PA / LODGING MANAGER / Resident Statement MD/DO has reviewed & agrees with the documentation as recorded. - Scribe Statement The provider has reviewed the documentation as recorded by the Dariibab Resendez Provider Scribe Attestation: All medical record entries made by the Scribe were at my direction and personally dictated by me. I have reviewed the chart and agree that the record accurately reflects my personal performance of the history, physical exam, medical decision making, and the department course for this patient. I have also personally directed, reviewed, and agree with the discharge instructions and disposition Disposition/Present on Arrival - Present on Arrival Any Indicators Present on Arrival: No History of DVT/PE: No History of Uncontrolled Diabetes: No Urinary Catheter: No History of Decub. Ulcer: No History Surgical Site Infection Following: None - Disposition Have Diagnosis and Disposition been Completed?: Yes Diagnosis: Altered mental status, Hypersomnolence, Generalized weakness, Leukocytosis Disposition: HOSPITALIZED Disposition Time: 14:17 Patient Plan: Admission Patient Problems: Current Active Problems Problem Status Onset Altered mental status Acute Hypersomnolence Acute Leukocytosis Acute Weakness Acute Condition: FAIR
[2017-10-18 12:15] LABS: VENOUS BLOOD GAS BASE EXCESS -3.9 mmol/L (0.0-2.0); VENOUS BLOOD GAS PO2 47 mm/Hg (30-55); VENOUS BLOOD PH 7.37 (7.32-7.43)
[2017-10-18 12:20] LABS: INR 1.25 (0.93-1.08); PROTHROMBIN TIME 14.4 SECONDS (9.4-12.5)
[2017-10-18 12:24] LABS: ALB/GLOB RATIO 1.1 (1.1-1.8); ALBUMIN 3.1 g/dL (3.0-4.8); CALCIUM 8.9 mg/dL (8.4-10.5); MAGNESIUM 1.8 mg/dL (1.7-2.2)
[2017-10-18 12:26] LABS: BASO # 0.07 K/mm3 (0.0-2.0); BASO % 0.5 % (0.0-3.0); EOS % 0.3 % (1.5-5.0); GRAN # 10.47 (1.4-6.5); GRAN % 78.9 % (50.0-68.0); HEMOGLOBIN 9.7 g/dL (12.0-16.0); LYMPH # 1.4 (1.2-3.4); LYMPH % 10.6 % (22.0-35.0); MEAN CELL VOLUME 85.3 fl (80.0-105.0); MEAN CORPUSCULAR HEMOGLOBIN 26.4 pg (25.0-35.0); MEAN CORPUSCULAR HGB CONC 30.9 g/dl (31.0-37.0); MONO # 1.3 (0.1-0.6); MONO % 9.7 % (1.0-6.0); RBC 3.68 10^6/uL (3.5-6.1); RED CELL DISTRIBUTION WIDTH 16.3 % (11.5-14.5); WHITE BLOOD COUNT 13.3 10^3/ul (4.5-11.0)
--- NOTE | 2017-10-18 12:26 | RAD ---
HISTORY: COMPARISON: 10/06/2017 TECHNIQUE: Chest PA and lateral FINDINGS: LINES AND TUBES: None. LUNG AND PLEURA: The lungs are well inflated. There are stable calcified granulomas in the right upper lobe. No focal consolidation. HEART AND MEDIASTINUM: The heart is not enlarged. The hilar and mediastinal contours are within normal limits. SKELETAL STRUCTURES: The bony structures are within normal limits for the patient's age. VISUALIZED UPPER ABDOMEN: Normal. OTHER FINDINGS: None. IMPRESSION: No active pulmonary disease.
[2017-10-18] MEDS ORDERED: Sodium Chloride 0.9% 1,000 ML IV STA (12:42)
[2017-10-18 13:43] LABS: URINE BILIRUBIN NEGATIVE (NEGATIVE); URINE BLOOD NEGATIVE (NEGATIVE); URINE GLUCOSE (UA) NEGATIVE (NEGATIVE); URINE LEUKOCYTE ESTERASE NEGATIVE Leu/uL (NEGATIVE); URINE NITRATE NEGATIVE (NEGATIVE); URINE PROTEIN 30 mg/dL (<30 mg/dL); URINE UROBILINOGEN 0.2 E.U./dL (<1 E.U./dL)
[2017-10-18 13:48] LABS: URINE APPEARANCE CLEAR (CLEAR); URINE COLOR YELLOW (YELLOW)
[2017-10-18 13:50] LABS: URINE AMORPHOUS SEDIMENT FEW; URINE BACTERIA MANY (NEG); URINE RBC 0 - 2 /hpf (0-2); URINE WBC 0 - 2 /hpf (0-6)
[2017-10-18] MEDS ORDERED: levoFLOXacin 750 mg in D5W 750 MG/150 ML BAG IVPB STA (14:00)
[2017-10-18] MEDS ORDERED: Sodium Chloride 0.9% 1,000 ML IV SCH (14:30)
--- NOTE | 2017-10-18 15:33 | CT ---
PROCEDURE: CT HEAD WITHOUT CONTRAST. HISTORY: hypersomnolent COMPARISON: None available. TECHNIQUE: Axial computed tomography images were obtained through the head/brain without intravenous contrast. Radiation dose: Total exam DLP = 792.65 mGy-cm. This CT exam was performed using one or more of the following dose reduction techniques: Automated exposure control, adjustment of the mA and/or kV according to patient size, and/or use of iterative reconstruction technique. FINDINGS: HEMORRHAGE: No intracranial hemorrhage. BRAIN: There are mild chronic microangiopathic changes. There is no mass, mass effect or abnormal extra-axial fluid collection. There are coarse atherosclerotic calcifications in the cavernous carotid arteries. VENTRICLES: There is moderate age-related global parenchymal volume loss and proportionate enlargement of the ventricles and cortical sulci CALVARIUM: Unremarkable. PARANASAL SINUSES: Predominantly clear. MASTOID AIR CELLS: Predominantly clear. OTHER FINDINGS: None. IMPRESSION: No acute intracranial abnormality. Mild chronic microangiopathic changes and moderate age-related global parenchymal volume loss.
[2017-10-18] MEDS ORDERED: Influenza Vaccine 60 mcg/0.5 mL SYR (4YR UP) IM ONE (22:39)
[2017-10-18] MEDS ORDERED: Pneumococcal 23-Valent Vaccine IM ONE (22:39)
[2017-10-19 07:57] VITALS: RESP 20
--- NOTE | 2017-10-19 09:49 | CARD ---
APPROVED REPORT EKG Measurement Heart [id number] <Conclusion> Sinus rhythm with APC RVCD LVH by voltahe Improved repolarization c/w ECG 10/06/17
[2017-10-19 10:09] LABS: BASO % 0.4 % (0.0-3.0); EOS # 0.2 (0.0-0.7); EOS % 1.7 % (1.5-5.0); GRAN # 8.55 (1.4-6.5); GRAN % 75.4 % (50.0-68.0); HEMOGLOBIN 9.5 g/dL (12.0-16.0); LYMPH # 1.4 (1.2-3.4); LYMPH % 12.5 % (22.0-35.0); MEAN CELL VOLUME 84.6 fl (80.0-105.0); MEAN CORPUSCULAR HEMOGLOBIN 26.7 pg (25.0-35.0); MEAN CORPUSCULAR HGB CONC 31.6 g/dl (31.0-37.0); MEAN PLATELET VOLUME 8.4 fl (7.0-11.0); MONO # 1.1 (0.1-0.6); RBC 3.56 10^6/uL (3.5-6.1); WHITE BLOOD COUNT 11.3 10^3/ul (4.5-11.0)
[2017-10-19 10:10] LABS: BASO # 0.04 K/mm3 (0.0-2.0)
[2017-10-19 10:19] LABS: ALBUMIN 2.9 g/dL (3.0-4.8); ALT/SGPT 25 U/L (7-56); AST/SGOT 35 U/L (14-36); BLOOD UREA NITROGEN 15 mg/dL (7-21); CALCIUM 8.7 mg/dL (8.4-10.5); GFR AFRICAN-AMERICAN > 60; GFR NON-AFRICAN AMERICAN 59
--- NOTE | 2017-10-19 14:16 | CP.PCM.CON ---
History of Present Illness - History of Present Illness History of Present Illness: Pallaitve consult requested by Dr Chandler Reveles Reason : [facility] 87 year old female with hsity of dementia,renal calculi, rib fx, diverticulitis , multiple falls who presented with lethargy, weakness. STAFF WEAPONS OFFICER reports foul smelling urine. STAFF WEAPONS OFFICER rpeotred no nausea, vomiting, diarrhea, pain, SOB, cough or other complaints. CT of head mild/chronic microangiopathic changes, global parenchymal volume loss. Chest x ray showed no active disease. Labs, leukocytosis, AST elevated, UTI PMHx: dementia, renal calculi, ORUTSARARMIUT, rib fracture,frequent falls,gait dysnfunction. Social History: Former smoker, no alcohol or drug use. Lived home with multimedia manager home child care provider. Family History: Non contributory. Advance Care Planning: The patient does not have an Advanced Directive Review of Systems: As per HPI, review otherwise negative Past Patient History - Infectious Disease Hx of Infectious Diseases: None - Tetanus Immunizations Tetanus Immunization: Unknown - Past Social History Smoking Status: Former Smoker - CARDIAC Hx Cardiac Disorders: Yes Hx Congestive Heart Failure: Yes Hx Hypertension: Yes - PULMONARY Hx Respiratory Disorders: Yes (H/O SMOKING CIGARETTES) - NEUROLOGICAL Hx Neurological Disorder: Yes Hx Dementia: Yes - HEENT Hx HEENT Problems: Yes ([place], wears eyeglasses) Hx Cataracts: Yes - RENAL Hx Chronic Kidney Disease: Yes (KIDNEY STONES) - ENDOCRINE/METABOLIC Hx Endocrine Disorders: No - HEMATOLOGICAL/ONCOLOGICAL Hx Blood Disorders: No - INTEGUMENTARY Hx Dermatological Problems: No Other/Comment: -11-18 MULTIPLE BRUISING TO ARMS,MULTIPLE PUSTULES AND SML WOUND TO BILATERAL FOOT,LEG,BILATERAL KNEE SKIN ABRASION,CHIN SLIGHTLLY REDDENED. multiple skin discolorations to arms and legs, right arm healing skin tear , bunyon left and r ft reddened and great toes crooked thick toenails, knee abrasions healing - MUSCULOSKELETAL/RHEUMATOLOGICAL Hx Falls: Yes (recent frequent) - GASTROINTESTINAL Hx Gastrointestinal Disorders: Yes (constipation,appendectomy,cholecystectoomy, colon polyps,diverticulitis) Hx Diverticulitis: Yes Other/Comment: DIVERTICULOSIS,DIVERTICULITIS,colon polyps removed, diverticulosis, constipation - GENITOURINARY/GYNECOLOGICAL Hx Genitourinary Disorders: Yes (hesitancy,retention,) - PSYCHIATRIC Hx Substance Use: No - SURGICAL HISTORY Hx Appendectomy: Yes Hx Cholecystectomy: Yes Other/Comment: colon polyps - ANESTHESIA Hx Anesthesia: Yes Hx Anesthesia Reactions: No Meds Allergies/Adverse Reactions: Allergies Allergy/AdvReac Type Severity Reaction Status Date / Time aspirin Allergy RASH Verified 10/06/17 11:52 iodine Allergy RASH Verified 10/06/17 11:52 Penicillins Allergy RASH Verified 10/06/17 11:52 Sulfa (Sulfonamide Allergy RASH Verified 10/06/17 11:52 Antibiotics) - Medications Medications: Current Medications Sodium Chloride (Sodium Chloride 0.9%) 1,000 mls @ 75 mls/hr IV .[id number] CARYN Stop: 10/19/17 17:09 Last Admin: 10/18/17 14:44 Dose: 75 mls/hr Ciprofloxacin (Cipro 400mg/200ml Dsw) 400 mg in 200 mls @ 133.3 mls/hr IVPB Q12 CARYN PRN Reason: Protocol Stop: 10/19/17 23:31 Metoprolol Tartrate (Lopressor) 25 mg PO BID CARYN Physical Exam - Constitutional Appears: Chronically Ill - Eye Exam Eye Exam: Normal appearance, PERRL - ENT Exam ENT Exam: Mucous Membranes Moist, Normal Oropharynx - Neck Exam Neck exam: Positive for: Normal Inspection - Respiratory Exam Respiratory Exam: Decreased Breath Sounds, NORMAL BREATHING PATTERN - Cardiovascular Exam Cardiovascular Exam: REGULAR RHYTHM, +S1, +S2 - GI/Abdominal Exam GI & Abdominal Exam: Soft - Rectal Exam Rectal Exam: NORMAL INSPECTION - Extremities Exam Extremities exam: Positive for: pedal edema, pedal pulses present - Neurological Exam Neurological exam: Alert - Skin Skin Exam: Dry, Pallor - Additional Findings Additional findings: Palliative performance scale rating 40% Results - Vital Signs Recent Vital Signs: Last Vital Signs Temp 98.7 F 10/19/17 07:55 Pulse 63 10/19/17 07:55 Resp 20 10/19/17 07:55 BP 167/80 H 10/19/17 07:55 Pulse Ox 97 10/19/17 07:55 - Labs Result Diagrams: 10/19/17 10:00 10/19/17 10:00 Labs: Laboratory Results - last 24 hr 10/19/17 10/19/17 10:00 10:00 WBC 11.3 H RBC 3.56 Hgb 9.5 L Hct 30.1 L MCV 84.6 MCH 26.7 MCHC 31.6 RDW 16.0 H Plt Count 187 MPV 8.4 Gran % 75.4 H Lymph % (Auto) 12.5 L [place] % (Auto) 10.0 H Eos % (Auto) 1.7 Baso % (Auto) 0.4 Gran # 8.55 H Lymph # (Auto) 1.4 [place] # (Auto) 1.1 H Eos # (Auto) 0.2 Baso # (Auto) 0.04 Sodium 139 Potassium 3.9 Chloride 111 H Carbon Dioxide 17 L Anion Gap 15 BUN 15 Creatinine 0.9 Est GFR ( Amer) > 60 Est GFR (Non-Af Amer) 59 Random Glucose 78 Calcium 8.7 Total Bilirubin 0.8 AST 35 ALT 25 Alkaline Phosphatase 66 Total Protein 5.7 L Albumin 2.9 L Globulin 2.8 Albumin/Globulin Ratio 1.0 L Assessment & Plan - Assessment and Plan (Free Text) Assessment: 87 year old female with history of dementia,who is admitted with lethargy, weakness, UTI I spoke with the patients daughter Briana via phone. Daughter and I discussed goals of care and advance care planning at length. Daughter states that the patient has an Advance Directive and that she wishes to be DNR/DNI. Daughter requesting that mother be made DNR/DNI during this admission. POLST Directive also explained. Daughter intends to complete POLST. senior living care also discussed. Daughter recognizes that her mother needs more comprehensive correction care. Family spoke with Brendon NAVA regarding plan to transition mother to [facility] facility in [place], [place]. Time spent with family in goals of care and advance care planning discussion, 30 minutes Plan: As discussed with Dr James, DNR/DNI Palliative support in establishing goals of care
--- NOTE | 2017-10-19 18:31 | HP ---
DATE: HISTORY OF PRESENT ILLNESS: Patient is an 87-year-old female presented to the emergency room with a past medical history of hypertension, CHF, dementia and chronic falls. She was brought to the emergency room by the health aide for increased lethargy and generalized weakness since yesterday. The patient herself is confused and is unable to provide a history. ALLERGIES: ASPIRIN, IODINE, PENICILLIN, AND SULFA. REVIEW OF SYSTEMS: As previously noted, review of systems is unobtainable. ADMITTING DIAGNOSES: Altered mental status, generalized weakness, and leukocytosis. FAMILY HISTORY: Unremarkable. SOCIAL HISTORY: Nonsmoker, does not drink or use drugs. PHYSICAL EXAMINATION: VITAL SIGNS: At this time, temperature of 98.7, pulse rate is 63, blood pressure 131/78, respiratory rate of 18 with an O2 saturation of 97% on room air. HEENT: PERRLA. EOMI. No icterus is present. NECK: Supple with no jugular venous distention. LUNGS: Clear bilaterally. HEART: With a regular rate and rhythm. No murmurs, rubs or gallops. ABDOMEN: Benign. EXTREMITIES: Show no deformities and no edema. NEUROLOGICAL: The patient is confused x3, but there are no focal motor deficits. IMPRESSION: At this time is: 1. Senile dementia. 2. Hyperlipidemia. 3. Hypertension. Rolan James MD
[2017-10-19 19:29] VITALS: BP 144/92; PULSE 95; TEMP 97.9; O2SAT 96
[2017-10-19] MEDS ORDERED: Ciprofloxacin 400mg/200ml D5W 400 MG/200 ML BAG IVPB SCH (22:00)
--- NOTE | 2017-10-20 10:53 | PN ---
SUBJECTIVE: The patient was seen and examined at the bedside on the general medical beltrán. No acute events overnight. She remains afebrile and hemodynamically stable. The patient is found to be markedly confused and disoriented. She has been evaluated by Hoa Shannon of Palliative Care Services and after an extensive discussion with the family members and with great help of the binder caser and social workers, the family is finally amenable for placement of the patient into a long-term facility and arrangements have been made for transfer to a facility in [place], which is near the family. Otherwise, again the patient remains clinically stable and medically cleared for discharge. OBJECTIVE VITAL SIGNS: Temperature 97.8, pulse 63, blood pressure 144/86, respiratory rate 20, and oxygen saturation 96% on room air. GENERAL: Frail elderly woman, lying in bed, in no apparent distress. HEENT: PERRL. EOMI. No scleral icterus. No conjunctival pallor. NECK: No JVD. No bruits. LUNGS: Clear to auscultation. CARDIOVASCULAR: Regular rate and rhythm. Normal S1 and S2. ABDOMEN: Normoactive bowel sounds. Soft, nontender, and nondistended. EXTREMITIES: No edema. NEUROLOGIC: Awake and alert, confused and disoriented, moving all extremities. LABORATORY DATA: No new labs. ASSESSMENT: The patient is an 87 year old woman with dementia, hypertension, coronary artery disease and history of recurrent falls who presented for evaluation of altered mental status and increased lethargy. PLAN 1. Altered mental status, etiology likely secondary to progressively advancing dementia as the patient has been noted to be clinically deteriorating over the last several weeks. Arrangements have been made for placement into a long-term care facility as per family request. 2. CAD s/p NSTEMI. The patient to resume Lipitor 40 mg p.o. daily and Metoprolol 25 mg p.o. b.i.d. upon discharge. She is not on aspirin due to allergy. 3. Hypertension. The patient will resume Mtoprolol 25 mg p.o. b.i.d. upon discharge. 4. Anxiety disorder. We will continue to hold the Xanax as the patient is markedly confused and has moments of somnolence. 5. Prophylaxis. GI prophylaxis not indicated as the patient is eating. Continue with SCDs for DVT prophylaxis. 6. Disposition. The patient is medically cleared for discharge today. CODE STATUS: DNR/DNI. Barney James MD MTDHugo
--- NOTE | 2017-10-23 05:47 | DS ---
ADMITTING DIAGNOSIS: Altered mental status. DISCHARGE DIAGNOSIS: Altered mental status secondary to progression of underlying Alzheimer's dementia. SECONDARY DIAGNOSES: Hypertension, coronary artery disease, anxiety disorder and history of recurrent falls. CONSULTATION: CORINNE Modi (Palliative Care). IMAGING STUDIES: 1. Chest x-ray demonstrated no active pulmonary disease. 2. CT of the head without contrast demonstrated no acute pathology but did demonstrate mild chronic microvascular changes and age-related parenchymal volume loss. PROCEDURES: None. HISTORY OF PRESENT ILLNESS: The patient is an 87 year old woman with Alzheimer's dementia and recurrent falls with multiple prior ED visits and admissions for recurrent mechanical falls at home who has been clinically deteriorating over the past several weeks who presented from home after being noted by her home health aide to be increasingly more lethargic. The patient's home health aide states that over the preceding 3-4 days the patient has been increasingly more somnolent and difficult to arouse. Given her progressive lethargy and confusion the home health aide called 911 and the patient was brought to the ED for evaluation. Upon arrival to the ED she was noted to be somnolent but arousable and otherwise hemodynamically stable. Workup in the ED demonstrated no evidence of infection and no electrolyte abnormalities were noted. A CT of the head was also unremarkable for acute pathology. Due to the patient's deconditioned state she was admitted for PT evaluation and to readdress potential placement options given her progressive clinical deterioration. HOSPITAL COURSE: Upon admission to the general medical beltrán the patient was evaluated by PT and Hoa Shannon of Palliative Care services as it was felt that the etiology of her altered mental status was progression of her underlying Alzheimer dementia. The patient was noted on multiple prior admissions to be gradually deteriorating in that she was getting more confused, significantly more debilitated and demonstrated difficulty ambulating. During this hospital stay she remained profoundly confused and was oriented only to self. With the assistance of Hoa Shannon, the director of casework services and the social workers, and after multiple extensive discussions with the family members, it was decided to have the patient placed in a long-term facility as it was evident that she was no longer able to be cared for at home despite 24/7 home health aide monitoring. As such, arrangements were made for placement to [facility] in [place], [place]. By hospital day #2 she was medically cleared for transfer to [facility]. CONDITION: Fair. DISPOSITION: [facility] in [place], [place]. DISCHARGE MEDICATIONS: Metoprolol 25 mg p.o. b.i.d., Lipitor 40 mg p.o. daily and Risperidone 0.5 mg p.o. b.i.d. FOLLOWUP: The patient will be followed by the medical staff at [facility] in [place]. Barney James MD MTDD
== END 2017-10-20 13:16 | DRG 57 ==
LOC: ED 11:01 → ERH 14:37 → 5RNO 18:04
PROVIDERS: ADMIT Student in an Organized Health Care Education/Training Program; ATTEND Student in an Organized Health Care Education/Training Program
DX: G30.9 Alzheimer's disease, unspecified (principal); F02.80 Dementia in other diseases classified elsewhere, unspecified severity, without behavioral disturbance, psychotic disturbance, mood disturbance, and anxiety; I13.0 Hypertensive heart and chronic kidney disease with heart failure and stage 1 through stage 4 chronic kidney disease, or unspecified chronic kidney disease; I50.9 Heart failure, unspecified; N39.0 Urinary tract infection, site not specified; I25.10 Atherosclerotic heart disease of native coronary artery without angina pectoris; N18.9 Chronic kidney disease, unspecified; F41.9 Anxiety disorder, unspecified; E78.5 Hyperlipidemia, unspecified; Z66 Do not resuscitate; R29.6 Repeated falls; Z88.6 Allergy status to analgesic agent; Z88.0 Allergy status to penicillin; Z88.2 Allergy status to sulfonamides; Z87.442 Personal history of urinary calculi; Z87.891 Personal history of nicotine dependence; Z75.1 Person awaiting admission to adequate facility elsewhere